=== PATIENT | male | born 1930 | race Caucasian/White ===

== ENCOUNTER 2016-08-23 04:14 | Emergency (ER) | payer OTHER, BC, MEDICARE ==
[~2016-08-23] VITALS: Ht 177.8 cm; Wt 72.6 kg
[~2016-08-23 04:14] MED LIST: CLOPIDOGREL75 MG PO; DRISDOL50000 IU PO; FERROUS SULFAT325 M1 PO; FUROSEMIDE20 MG PO; HYDROCORTI2.5 %/30 G TOP; LEVOTHYROXINE0.05 M1 PO; LISINOPRIL10 MG PO; MASON NATURAL325 MG PO; MELOXICAM7.5 MG PO; PRILOSEC 20MG C20 MG PO; ROZEREM8 MG PO; TRAMADOL HYDROC50 MG PO; VITAMIN B121000 MCG PO; XARELTO15 MG PO
--- NOTE | 2016-08-23 04:42 | ED MVC/FALL/TRAUMA COMPLAINT ---
History of Present Illness General Chief Complaint: Fall Stated Complaint: LEFT ELBOW AND WRIST PAIN S/P FALL Source: patient, family Exam Limitations: no limitations Vital Signs & Intake/Output Vital Signs & Intake/Output Vital Signs Date Time Temp Pulse Resp B/P B/P Pulse O2 O2 Flow FiO2 Mean Ox Delivery Rate 08/23 0420 97.4 83 20 154/76 94 Room Air Allergies Coded Allergies: NO KNOWN ALLERGIES (05/25/12) Reconcile Medications Cyanocobalamin (Vitamin B12) 1,000 MCG TAB 1 TAB PO DAILY DAILY ERGOCALCIFEROL (VITAMIN D2) (Drisdol) 50,000 IU SGL 50,000 IU PO Q168 SUPPLEMENT Ferrous Sulfate 325 MG TAB 1 TAB PO TID SUPPLEMENT Furosemide 20 MG TABLET 1 TAB PO DAILY WATER PILL (Reported) Hydrocortisone 2.5 %/30 GM CRM 1 FREDDIE TOP APPLY TO SKIN SKIN Levothyroxine Sodium 50 MCG TABLET 1 TAB PO DAILY AC THYROID (Reported) Lisinopril 10 MG TABLET 1 TAB PO DAILY BP (Reported) Omeprazole (Prilosec) 20 MG CAP 40 MG PO DAILY AC GI BLEED Oxycodone HCl/Acetaminophen (Percocet 5-325 MG Tablet) 5 MG-325 MG TABLET 1 TAB PO BID PRN PAIN eight...[id number] Ramelteon (Rozerem) 8 MG TAB 1 TAB PO AT BEDTIME SLEEP Rivaroxaban (Xarelto) 15 MG TABLET 1 TAB PO DAILY BLOOD THINNER (Reported) GI BLEED TRAMADOL HCL (Tramadol Hydrochloride) 50 MG TABLET 1 TAB PO Q6P PRN PAIN ( Reported) Triage Note: PT TO ED C/O LEFT WRIST/FOREARM PAIN AND LEFT ELBOW SKIN TEAR 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 PT DENIES HEADSTRIKE, DENIES LOC. TAKES XERALTO HAS SWELLING TO LEFT HAND/FOREARM Triage Nurses Notes Reviewed? yes Onset: Abrupt Duration: hour(s): Timing: single episode today Severity: moderate Injuries/Fall Location: upper extremity Method of Injury: fall Loss of Consciousness: no loss of consciousness Modifying Factors: Worsens With: movement. Associated Symptoms: left elbow skin tear, left wrist/hand pain HPI: An 86 yo gentleman in prior good health presents after a fall. Per his son, he tripped in the middle the night on the way to the bathroom. He landed on his left forearm. He notes a skin tear and pain in his left elbow as well as increased swelling, pain, decreased range of motion of his left wrist and hand. He did not hit his head. He has no headache. He had no syncopal symptoms or dizziness. He is otherwise well and has no other concerns. Past History Travel History Traveled to [place] past 21 day No Medical History Any Pertinent Medical History? see below for history Cardiovascular: hypertension, hyperlipidemia, myocardial infarction History of MRSA: No History of VRE: No History of CDIFF: No Pneumonia Vaccine: 02/07/09 Influenza Vaccine: 01/23/14 Surgical History Surgical History: none Psychosocial History Who do you live with Spouse Services at Home NONE What is your primary language Yemeni Tobacco Use: Quit >30 days ago Family History Family History, If Any: No Known Family History. Hx Contributory? No Review of Systems Review of Systems Constitutional: Reports: no symptoms. Eyes: Reports: no symptoms. Ears, Nose, Throat, Mouth: Reports: no symptoms. Respiratory: Reports: no symptoms. Cardiovascular: Reports: no symptoms. Gastrointestinal/Abdominal: Reports: no symptoms. Genitourinary: Reports: no symptoms. Musculoskeletal: Reports: no symptoms. Skin: Reports: no symptoms. Neurological/Psychological: Reports: no symptoms. All Other Systems: Reviewed and Negative Physical Exam Physical Exam General Appearance: well developed/nourished, mild distress Head: atraumatic, normal appearance Eyes: Bilateral: normal appearance. Ears, Nose, Throat, Mouth: hearing grossly normal Neck: normal inspection, supple, full range of motion, normal alignment Respiratory: normal breath sounds, chest non-tender, no respiratory distress, quiet respiration, lungs clear Cardiovascular: regular rate/rhythm Gastrointestinal: normal bowel sounds, soft, non-tender, no organomegaly Back: normal inspection, normal range of motion Extremities: left elbow with 3x4cm skin tear, diffuse swelling at olecranon without focal bony tenderness., left hand and wrist with diffuse swelling and tenderness to palpation. decreased ROM. Core Measures ACS in differential dx? No Severe Sepsis Present: No Septic Shock Present: No Progress Differential Diagnosis: ext injury Plan of Care: Orders Procedure Date/time Status XRY-WRIST COMPLETE-LEFT 08/23 441 Active XRY-HAND, 3 View LEFT 08/23 441 Active XRY-ELBOW 3 OR MORE VIEWS, L 08/23 441 Active Diagnostic Imaging: Viewed by Me: Radiology Read. Discussed w/RAD: Radiology Read. Radiology Impression: left wrist/left hand - 3rd, 4th, 5th, metacarpal fx, 2nd finger fx left elbow - no fx. Comments: PATIENT: XENA FLORES PRESENT AGE: 86 PATIENT ACCOUNT NO: [id number] : 30 LOCATION: [facility] ORDERING PHYSICIAN: DALE ARCHER MD SERVICE DATE: 08/23/16 EXAM TYPE: RAD - XRY-ELBOW 3 OR MORE VIEWS, L; XRY-HAND, LEFT; XRY-WRIST COMPLETE-LEFT EXAMINATION: XR LEFT ELBOW, LEFT WRIST, LEFT HAND CLINICAL INFORMATION: Pain after fall COMPARISON: None TECHNIQUE: 3 views of the left elbow. 3 views of the left wrist. 3 views of the left hand. FINDINGS: Left elbow: Osseous alignment is anatomic. No acute fracture is seen. Olecranon spurring is noted. No significant effusion. Dorsal soft tissue swelling is suspected. Left wrist: Alignment across the radiocarpal articulation and carpocarpal articulations is maintained. The distal radius and ulna appear intact. No carpal fracture is seen. Left hand: There are mildly displaced fractures of the third, fourth, and fifth metacarpal shafts. There is a minimally displaced oblique fracture of the second proximal phalanx which appears to demonstrate intra-articular extension at the PIP joint. There is soft tissue swelling overlying the metacarpals. IMPRESSION: 1. Left hand: Fractures of the third, fourth, and fifth metacarpals. Fracture of the second proximal phalanx. 2. Left wrist: No acute findings. 3. Left elbow: No acute findings. DICTATED BY: ROXY MARTINEZ MD DATE/TIME DICTATED:08/23/16537 BILLING COORDINATOR:FRANCES DATE/TIME TRANSCRIBED:08/23/16537 CONFIDENTIAL, DO NOT COPY WITHOUT APPROPRIATE AUTHORIZATION. <Electronically signed in Other Vendor System> SIGNED BY: ROXY MARTINEZ MD 08/23/16547 Departure Departure Disposition: HOME OR SELF CARE Condition: Stable Clinical Impression Primary Impression: Skin avulsion Secondary Impressions: Finger fracture, left, Fracture, metacarpal Referrals: SABA RECIO,SHANTELLE Curiel (PCP/Family) Departure Forms: Customer Survey General Discharge Information Prescriptions: Current Visit Scripts Oxycodone HCl/Acetaminophen (Percocet 5-325 MG Tablet) 1 TAB PO BID PRN PAIN #8 TAB eight...[id number] Procedures Splinting Location: left wrist Manual Alignment Performed: No Hand-Made Type: orthoglass Splint: wrist, mcp splint Splint Applied By: splint applied by me Pre-Proc Neuro Vasc Exam: normal Post-Proc Neuro Vasc Exam: normal Progress: excellent result... pt to follow up with ortho.
--- NOTE | 2016-08-23 05:48 | RADIOLOGY REPORT ---
EXAMINATION: XR LEFT ELBOW, LEFT WRIST, LEFT HAND CLINICAL INFORMATION: Pain after fall COMPARISON: None TECHNIQUE: 3 views of the left elbow. 3 views of the left wrist. 3 views of the left hand. FINDINGS: Left elbow: Osseous alignment is anatomic. No acute fracture is seen. Olecranon spurring is noted. No significant effusion. Dorsal soft tissue swelling is suspected. Left wrist: Alignment across the radiocarpal articulation and carpocarpal articulations is maintained. The distal radius and ulna appear intact. No carpal fracture is seen. Left hand: There are mildly displaced fractures of the third, fourth, and fifth metacarpal shafts. There is a minimally displaced oblique fracture of the second proximal phalanx which appears to demonstrate intra-articular extension at the PIP joint. There is soft tissue swelling overlying the metacarpals. IMPRESSION: 1. Left hand: Fractures of the third, fourth, and fifth metacarpals. Fracture of the second proximal phalanx. 2. Left wrist: No acute findings. 3. Left elbow: No acute findings.
[2016-08-23] MEDS ORDERED: PERCOCET 5-3251 EACH PO (06:01)
[2016-08-23 07:07] VITALS: BP 134/60
== END 2016-08-23 07:11 ==
LOC: ERH 04:14
DX: S62.611A Displaced fracture of proximal phalanx of left index finger, initial encounter for closed fracture (principal); S62.303A Unspecified fracture of third metacarpal bone, left hand, initial encounter for closed fracture; S62.305A Unspecified fracture of fourth metacarpal bone, left hand, initial encounter for closed fracture; S62.307A Unspecified fracture of fifth metacarpal bone, left hand, initial encounter for closed fracture; S51.012A Laceration without foreign body of left elbow, initial encounter; W19.XXXA Unspecified fall, initial encounter; Y92.9 Unspecified place or not applicable
CPT/HCPCS: 73080-LT; 73110-LT; 73130-LT

== ENCOUNTER 2016-08-28 16:32 | Inpatient (IN) | payer OTHER, BC, MEDICARE ==
[~2016-08-28] VITALS: Ht 177.8 cm; Wt 81.3 kg
[~2016-08-28 16:32] MED LIST changes: +PERCOCET 5-3251 EACH PO
--- NOTE | 2016-08-28 17:21 | ED DYSPNEA/ASTHMA COMPLAINT ---
History of Present Illness General Chief Complaint: Chest Pain Stated Complaint: CP, DIFF BREATHING Source: patient, family, old records Exam Limitations: clinical condition Vital Signs & Intake/Output Vital Signs & Intake/Output Vital Signs Date Time Temp Pulse Resp B/P B/P Pulse O2 O2 Flow FiO2 Mean Ox Delivery Rate 08/28 1835 100.4 84 22 168/73 100 BIPAP 25% 08/28 1737 100 BIPAP 40% 08/28 1735 100.4 82 22 165/79 97 BIPAP 40% 08/28 1710 99.5 88 22 182/81 100 BIPAP 40% / 1650 87 98 Allergies Coded Allergies: No Known Allergies (08/28/16) Reconcile Medications Cholecalciferol (Vitamin D3) (Unknown Strength) TABLET (Unknown Dose) PO DAILY SUPPLEMENT (Reported) Ferrous Sulfate (Unknown Strength) TABLET (Unknown Dose) PO TID SUPPLEMENT ( Reported) Finasteride 5 MG TABLET 1 TAB PO DAILY UNKNOWN (Reported) Furosemide 20 MG TABLET 1 TAB PO DAILY DIURETIC (Reported) Gabapentin 100 MG CAPSULE 1 CAP PO TID UNKNOWN (Reported) Levothyroxine Sodium 50 MCG TABLET 1 TAB PO DAILY THYROID (Reported) Rivaroxaban (Xarelto) 15 MG TABLET 1 TAB PO DAILY BLOOD THINNER (Reported) Tamsulosin HCl 0.4 MG CAP.ER.24H 1 CAP PO BID (Reported) Core Measure Meds Pre-Hospital xarelto Triage Nurses Notes Reviewed? yes Onset: Just prior to arrival Duration: minute(s):, constant, continues in ED, getting worse Timing: recent history Severity: severe Activities at Onset: none Prior Episodes/Possible Cause: occasional episodes Modifying Factors: Worsens With: movement. Associated Symptoms: weakness HPI: One hour prior to admission patient complained of acute onset of shortness of breath weakness dyspnea on exertion. There is no report of fever chills chest pain cough headache dysuria rash nausea vomiting diarrhea bleeding. Past History Travel History Traveled to [place] past 21 day No Medical History Any Pertinent Medical History? see below for history Cardiovascular: hypertension, hyperlipidemia, myocardial infarction History of MRSA: No History of VRE: No History of CDIFF: No Surgical History Surgical History: pacemaker Psychosocial History Who do you live with Spouse Services at Home NONE What is your primary language Kyrgyz Family History Family History, If Any: No Known Family History. Hx Contributory? No Review of Systems Review of Systems Constitutional: Reports: see HPI, weakness. EENTM: Reports: no symptoms. Respiratory: Reports: see HPI, short of breath. Cardiovascular: Reports: no symptoms. GI: Reports: no symptoms. Genitourinary: Reports: no symptoms. Musculoskeletal: Reports: no symptoms. Skin: Reports: no symptoms. Neurological/Psychological: Reports: no symptoms. Hematologic/Endocrine: Reports: no symptoms. Immunologic/Allergic: Reports: no symptoms. All Other Systems: Reviewed and Negative Physical Exam Physical Exam General Appearance: well developed/nourished, alert, awake, anxious, severe distress Head: atraumatic, normal appearance Eyes: Bilateral: normal appearance, PERRL, EOMI. Ears, Nose, Throat: normal pharynx, normal ENT inspection, hearing grossly normal Neck: normal inspection, supple, full range of motion, JVD Respiratory: chest non-tender, decreased breath sounds, respiratory distress ( severe) Cardiovascular: normal peripheral pulses, irregularly irregular, norml femoral pulses equa Peripheral Pulses: 4+ carotid (R), 4+ carotid (L) Gastrointestinal: normal bowel sounds, soft, non-tender, no organomegaly Extremities: normal capillary refill, normal range of motion, pedal edema, no ligament instability Neurologic/Psych: no motor/sensory deficits, awake, alert, normal mood/affect, case coordinator II-XII nml as tested Skin: intact, normal color, warm/dry Lymphatic: no anterior cervical kylah Core Measures ACS in differential dx? Yes ASA ordered for poss ACS? No-other contraindication (on xarelto) Severe Sepsis Present: No Septic Shock Present: No Progress Differential Diagnosis: AMI, CHF, COPD, pulmonary embolism, pneumonia Plan of Care: Orders Procedure Date/time Status Regular Diet 08/29 B Active Patient Data 08/28 1836 Active OXYGEN SETUP (GEN) 08/28 1816 Active Saline Lock 08/28 181 Active Admit to inpatient 08/28 181 Active Vital Signs 08/28 181 Active Activity/Ambulation 08/28 181 Active BLOOD CULTURE 08/28 181 Active Code Status 08/28 1817 Active Intake & Output 08/28 1721 Active URINALYSIS 08/28 1705 Complete ARTERIAL BLOOD GAS (GEN) 08/28 1650 Active TROPONIN LEVEL 08/28 1647 Complete PROTHROMBIN TIME 08/28 1647 Complete MAGNESIUM 08/28 1647 Complete COMPREHENSIVE METABOLIC PANEL 08/28 1647 Complete CBC WITHOUT DIFFERENTIAL 08/28 1646 Complete B-TYPE NATRIURETIC PEP (BNP) 08/28 164 Complete EKG 08/28 1635 Active Current Medications Sig/Edvin Start time Last Medication Dose Stop Time Status Admin Doxycycline Hyclate 100 MG ONCE ONE 08/28 1829 AC (Vibramycin) 08/28 1934 Sodium Chloride 100 ML (Normal Saline 0.9%) Laboratory Tests 08/28/16 1735: pH 7.46 H, pCO2 31 L, pO2 178 H, HCO3 22, ABG O2 Sat (Measured) 98.0, P-50 ( Temp Corrected) N, Carboxyhemoglobin 0.8 L, O2 Concentration % 40%, Temperature 99.5, Respiration Rate 22, O2 Delivery Method FFM, Vent Mode ST, Expiratory Pressure 6, Inspiratory Pressure 16, Phlebotomy Draw Site RIGHT RADIAL 08/28/16 1715: Anion Gap 15, Estimated GFR 48 L, BUN/Creatinine Ratio 15.0, Glucose 113 H, Calcium 8.5, Magnesium 2.1, Total Bilirubin 0.9, AST 23, ALT 34, Alkaline Phosphatase 188 H, Troponin I 0.04, Sau-A-Qwffzbyoyxp Pept 3710 H, Total Protein 7.0, Albumin 3.6, Globulin 3.4, Albumin/Globulin Ratio 1.1, PT 12.9 H, INR 1.23 H, CBC w Diff NO MAN DIFF REQ, RBC 2.91 L, MCV 95.0 H, MCH 30.4, RDW 15.9 H, MPV 8.1, Gran % 79.0 H, Lymphocytes % 9.8 L, Monocytes % 8.3, Eosinophils % 2.5, Basophils % 0.4, Absolute Granulocytes 8.0 H, Absolute Lymphocytes 1.0 L, Absolute Monocytes 0.8 H, Absolute Eosinophils 0.3, Absolute Basophils 0, PUBS MCHC 32.0 L 08/28/16 1705: Urine Color YEL, Urine Clarity HAZY H, Urine pH 6.0, Ur Specific [place] 1.020, Urine Protein TRACE H, Urine Ketones NEG, Urine Nitrite POS H, Urine Bilirubin NEG, Urine Urobilinogen 0.2, Ur Leukocyte Esterase SMALL H, Ur Microscopic SEDIMENT EXAMINED, Urine RBC 5-10 H, Urine WBC 3-5 H, Ur Epithelial Cells RARE , Urine Bacteria PACKD H, Urine Hemoglobin MOD H, Urine Glucose NEG Microbiology 08/28 1829 BLOOD: Blood Culture - RECD 08/28 1829 BLOOD: Blood Culture - RECD Diagnostic Imaging: Viewed by Me: Radiology Read. Discussed w/RAD: Radiology Read. CXR Impression: 1. Mild pulmonary venous congestion without overt pulmonary edema. 2. Right infrahilar airspace disease, in the correct clinical setting can represent pneumonia. Clinical correlation is suggested. Initial ED EKG: AFIB, nonspecific ST T wave chg Prior EKG: unchanged Rhythm Strip: atrial fibrillation Departure Departure Disposition: STILL A PATIENT Condition: Stable Clinical Impression Primary Impression: CHF (congestive heart failure) Qualifiers: Congestive heart failure type: unspecified congestive heart failure type Congestive heart failure chronicity: acute Qualified Code: I50.9 - Heart failure, unspecified Secondary Impressions: Atrial fibrillation with normal ventricular rate Pneumonia Qualifiers: Pneumonia type: due to unspecified organism Laterality: right Lung location: middle lobe of lung Qualified Code: J18.1 - Lobar pneumonia, unspecified organism Referrals: SHANTELLE WALTER MD (PCP/Family) Departure Forms: Customer Survey General Discharge Information Admission Note Spoke With: TITO REY MD Documentation of Exam: Documentation of any treatments & extenuating circumstances including Concerns Regarding Discharge (functional status, medication knowledge or non-compliance, living conditions, etc.) that warrant an admission rather than observation: Cardiac monitoring supplemental oxygen serial lab exam medication adjustment IV antibiotics continuing care discharge planning. Critical Care Note Critical Care Note Critical Care Time: 30-74 min (40)
[2016-08-28] MEDS ORDERED: LEVOTHYROXINE50 MCG PO (17:25)
[2016-08-28] MEDS ORDERED: FUROSEMIDE20 M1 PO (17:26)
[2016-08-28] MEDS ORDERED: GABAPENTIN100 M2 PO (17:26)
[2016-08-28] MEDS ORDERED: VITAMIN D31000 UNI2 PO (17:26)
[2016-08-28] MEDS ORDERED: FINASTERIDE5 M1 PO (17:27)
[2016-08-28] MEDS ORDERED: FERROUS SULFAT325 M3 PO (17:27)
[2016-08-28] MEDS ORDERED: XARELTO15 M2 PO (17:27)
[2016-08-28] MEDS ORDERED: TAMSULOSIN HCL0.4 M1 PO (17:27)
[2016-08-28 17:35] LABS: PT 12.9 SEC (9.4-12.5)
[2016-08-28 17:36] LABS: ABSOLUTE BASOPHIL COUNT 0 /CUMM (0.0-0.2); ABSOLUTE EOSINOPHIL COUNT 0.3 /CUMM (0.0-0.7); ABSOLUTE MONOCYTE COUNT 0.8 /CUMM (0.10-0.60); BASOPHIL % 0.4 % (0.0-2.0); EOSINOPHIL % 2.5 % (0-5); HEMATOCRIT 27.6 % (42-52); MEAN CORPUSCULAR HGB 30.4 PG (27.0-31.0); MEAN PLATELET VOLUME 8.1 FL (7.4-10.4); PLATELET COUNT 244 /CUMM (130-400); RBC DISTRIBUTION WIDTH 15.9 % (11.5-14.5); RED BLOOD CELL CT 2.91 /CUMM (4.70-6.10); WHITE BLOOD CELL COUNT 10.1 /CUMM (4.8-10.8)
--- NOTE | 2016-08-28 18:10 | RADIOLOGY REPORT ---
EXAMINATION: XR PORTABLE CHEST CLINICAL INFORMATION: Shortness of breath COMPARISON: 03/14/2014 chest x-ray TECHNIQUE: Portable frontal view of the chest was obtained. FINDINGS: Stable mild cardiomegaly. The mediastinal silhouette is normal. Atherosclerotic calcifications of aortic arch noted. Left subclavian approach single lead cardiac pacer in place with its lead projecting over the right ventricle. There is mild pulmonary venous congestion. No overt pulmonary edema seen. There is right infrahilar pulmonary airspace disease. The left lung is clear. No pleural effusions or pneumothorax. IMPRESSION: 1. Mild pulmonary venous congestion without overt pulmonary edema. 2. Right infrahilar airspace disease, in the correct clinical setting can represent pneumonia. Clinical correlation is suggested.
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
[2016-08-28 22:25] VITALS: BP 122/64
--- NOTE | 2016-08-29 00:26 | Admission Certification ---
Admission Certification Certification Statement - As attending physician, I certify that at the time of - admission, based on clinical presentation, severity of - symptoms, need for further diagnostic testing and - therapeutic interventions, and risk of adverse outcomes - without in-hospital treatment, in my clinical assessment, - this patient requires an acute hospital stay for a minimum - of two nights or longer. I have also considered psychsocial - factors such as support system, advanced age, financial - issues, cognitive issues, and failed out-patient treatments, - past re-admission history, safety of patient, and lack of - compliance as applicable. Specific rationale supporting this admission is: Acute hypoxic respiratory failure, multifactorial secondary to pneumonia, heart failure rule out PE
[2016-08-29 00:53] VITALS: BP 130/70
[2016-08-29 07:59] VITALS: BP 110/80
--- NOTE | 2016-08-29 08:28 | PN- Housestaff ---
BOWEN RECIO,[facility] 08/29/16 0828: Subjective Follow-up For: #Acute hypoxic respiratory failure #Acute CHF exacerbation #HCAP #SOB needs to R/O PE #Hx. of A.flavio on Xarelto Subjective: Patient lying in bed. States that his breathing is the same as admission. Does not complain of pain or discomfort this AM. Review of Systems Constitutional: Reports: see HPI. Objective Last 24 Hrs of Vital Signs/I&O Vital Signs Date Time Temp Pulse Resp B/P B/P Pulse O2 O2 Flow FiO2 Mean Ox Delivery Rate 08/29 758 97.9 73 14 110/80 98 Nasal 2.0L Cannula 08/29 0053 98.4 79 20 130/70 99 Nasal 2.0L Cannula 08/29 0000 Nasal 2.0L Cannula 08/28 2225 98.3 80 20 122/64 100 Nasal 2.0L Cannula 08/28 2002 99.9 77 24 144/83 100 Nasal 3.0L Cannula 08/28 1835 100.4 84 22 168/73 100 BIPAP 25% 08/28 1737 100 BIPAP 40% 08/28 1735 100.4 82 22 165/79 97 BIPAP 40% 08/28 1710 99.5 88 22 182/81 100 BIPAP 40% / 1650 87 98 Intake & Output 08/29 1600 08/29 0800 08/29 0000 Intake Total 396 0 Output Total 800 2500 Balance -404 -2500 Intake, IV 156 Intake, Oral 240 0 Number 1 Bowel Movements Output, Urine 800 2500 Patient 179 lb 165 lb Weight Weight Standing Scale Reported by Patient Measurement Method Physical Exam General Appearance: Alert, Oriented X3, Cooperative, No Acute Distress Cardiovascular: Regular Rate, Normal S1, Normal S2, murmur heard in the aortic area. Lungs: decreased air entry bilaterally. Abdomen: Normal Bowel Sounds, Soft, No Tenderness Neurological: Normal Speech, Strength at 5/5 X4 Ext, Normal Tone Extremities: 1+ pitting edema noted in both LE extending upto the knees Current Medications: Current Medications Sig/Edvin Start time Last Medication Dose Route Stop Time Status Admin Acetaminophen 650 MG Q6P PRN 08/28 2300 AC PO Ceftazidime 1,000 MG Q12H 08/29 0000 AC 08/29 IV 0030 Ceftriaxone Sodium 0 .STK-MED ONE 08/28 1835 DC .ROUTE Ceftriaxone Sodium 1,000 MG ONCE ONE 08/28 1830 DC 08/28 IV 08/28 183 1853 Cholecalciferol 1,000 IU DAILY 08/29 1000 AC PO Doxycycline Hyclate 100 MG ONCE ONE 08/28 183 DC 08/28 Sodium Chloride 100 ML IV 08/28 193 1938 Ferrous Sulfate 325 MG DAILY 08/29 1000 AC PO Finasteride 5 MG DAILY 08/29 1000 AC PO Furosemide 40 MG 7:30 AM, & 4:30 PM 08/29 0730 AC IV Furosemide 80 MG ONCE ONE 08/28 1700 DC 05/ IV 08/28 1701 1700 Furosemide 0 .STK-MED ONE 08/28 1645 DC IV Gabapentin 100 MG TID 08/29 1000 AC PO Heparin Sodium 25,000 UNIT Q24H 08/28 2300 AC 08/29 (Porcine) IV 0145 Sodium Chloride 500 ML Levothyroxine Sodium 0.05 MG DAILY AC 08/29 0700 AC 08/29 PO 0603 Morphine Sulfate 4 MG Q12P PRN 08/28 2300 AC IV Morphine Sulfate 0 .STK-MED ONE 08/28 1752 DC .ROUTE Morphine Sulfate 2 MG ONCE ONE 08/28 1745 DC 08/28 IV 08/28 1746 1754 Oxycodone/ 1 TAB Q6P PRN 08/28 2300 AC Acetaminophen PO Tamsulosin HCl 0.4 MG BID 08/29 1000 AC PO Vancomycin HCl 1,000 MG DAILY 08/29 1000 AC Sodium Chloride 250 ML IV Last 24 Hrs of Lab/Saud Results Last 24 Hrs of Labs/Mics: Laboratory Tests 08/29/16 0811: Sodium Pending, Potassium Pending, Chloride Pending, Carbon Dioxide Pending, Anion Gap Pending, BUN Pending, Creatinine Pending, BUN/Creatinine Ratio Pending , APTT Pending, CBC w Diff Pending, WBC Pending, RBC Pending, Hgb Pending, Hct Pending, MCV Pending, MCH Pending, RDW Pending, Plt Count Pending, MPV Pending, PUBS MCHC Pending 08/29/16 0120: Troponin I 0.06 08/28/16 1735: pH 7.46 H, pCO2 31 L, pO2 178 H, HCO3 22, ABG O2 Sat (Measured) 98.0, P-50 ( Temp Corrected) N, Carboxyhemoglobin 0.8 L, O2 Concentration % 40%, Temperature 99.5, Respiration Rate 22, O2 Delivery Method FFM, Vent Mode ST, Expiratory Pressure 6, Inspiratory Pressure 16, Phlebotomy Draw Site RIGHT RADIAL 08/28/16 1715: Anion Gap 15, Estimated GFR 48 L, BUN/Creatinine Ratio 15.0, Glucose 113 H, Calcium 8.5, Magnesium 2.1, Total Bilirubin 0.9, AST 23, ALT 34, Alkaline Phosphatase 188 H, Troponin I 0.04, Yxt-H-Gfaeynyblyf Pept 3710 H, Total Protein 7.0, Albumin 3.6, Globulin 3.4, Albumin/Globulin Ratio 1.1, PT 12.9 H, INR 1.23 H, CBC w Diff NO MAN DIFF REQ, RBC 2.91 L, MCV 95.0 H, MCH 30.4, RDW 15.9 H, MPV 8.1, Gran % 79.0 H, Lymphocytes % 9.8 L, Monocytes % 8.3, Eosinophils % 2.5, Basophils % 0.4, Absolute Granulocytes 8.0 H, Absolute Lymphocytes 1.0 L, Absolute Monocytes 0.8 H, Absolute Eosinophils 0.3, Absolute Basophils 0, PUBS MCHC 32.0 L 08/28/161704: Urine Color YEL, Urine Clarity HAZY H, Urine pH 6.0, Ur Specific Marshall 1.020, Urine Protein TRACE H, Urine Ketones NEG, Urine Nitrite POS H, Urine Bilirubin NEG, Urine Urobilinogen 0.2, Ur Leukocyte Esterase SMALL H, Ur Microscopic SEDIMENT EXAMINED, Urine RBC 5-10 H, Urine WBC 3-5 H, Ur Epithelial Cells RARE , Urine Bacteria PACKD H, Urine Hemoglobin MOD H, Urine Glucose NEG Microbiology 08/29 2247 LOWER RESP: Respiratory Culture - COLB 08/29 2247 LOWER RESP: Gram Stain - COLB 08/28 1829 BLOOD: Blood Culture - RECD 08/28 1829 BLOOD: Blood Culture - RECD 08/28 1704 URINE ROUT: Legionella Antigen - RES 08/28 1704 URINE ROUT: Streptococcus pneumoniae Antigen (M - RES 08/28 1704 URINE ROUT: Urine Culture - RES Lines/Diet/Fluids Lines: peripheral lines Assessment/Plan Assessment: is an 86 yo man with PMHx. significant for HTN, CAD, A.fib on Xarelto , Bradycardia s/p pacemaker placed at 03/19/2014, AAA s/p repair, Hx. of prostatic cancer presented to ED with a c/o of SOB. He is currently admitted to telemetry for acute hypoxic respiratory failure 2/2 exacerbation of CHF and HCAP. Doppler of the LE, ECHO pending. Plan: - Continue to monitor in telemetry. - ECHO pending, Doppler of the LE pending. Patient is non compliant with home Xarelto. - Continue Vanc and Ceftaz for HCAP. Blood cx, sputum cx do not show any growth yet. Respiratory status has remained stable overnight. - Continue Heparin gtt pending V/Q scan. - 3rd Trop pending. Tropsx2 negative. - Pain Pathway: Mild, moderate and severe. - DVT PPx: Heparin Gtt - Code Status: Full code. Problem List: 1. CHF (congestive heart failure) Pain Ratin Pain Location: No pain Pain Goal: Pain 4 or less Pain Plan: Per EMR Tomorrow's Labs & Rationales: Per today's Labs SASKIA RECIO,BINA 08/29/16 1505: Attending MD Review Statement Attending Statement Attending MD Statement: examined this patient, discuss w/resident/PA/MANAGER DOCUMENTATION, agreed w/resident/PA/MANAGER DOCUMENTATION, discussed with family, reviewed EMR data (avail), discussed with nursing, amended to note Attending Assessment/Plan: Patient seen and examined. Lying in bed not in acute distress. Overnight on telemetry has been atrial fibrillation with ventricular ectopy. He is alert and oriented to person. Follows simple commands. Denies pain. Denies chest pain or shortness of breath. Denies palpitations. On examination he has no jugular venous distention. Lungs are clear to auscultation bilaterally. Heart sounds are irregular. Abdomen is soft and nontender. He has bilateral pedal edema. He has a cast over the left wrist. Problems: 1. Dyspnea; secondary to volume overload, pneumonia evidence of chest x-ray. 2. Chronic atrial fibrillation on aticoagulation with xarelto 3. Chronic kidney disease. 4. Obstructive uropathy; daughter reports need for frequent catheterization as an outpatient. 5. Dementia Plan: -Continue diuresis with Lasix 40 mg IV daily. Obtain echocardiogram will follow -up with his sanitation associate Dr. Bingham. Troponin so far, suggestive of acute coronary syndrome. -Patient is not on any medications for rate control at home. He is on anticoagulation therapy with xarelto home. His daughter reports that he does not fall often. He did fall last week resulting the left wrist fracture. -Continue impression about therapy with vancomycin/ceftaz again. Follow blood cultures. Obtain sputum cultures if possible. If patient continues spikes fever recommend ID consultation -Keep Cortes catheter in place. Continue tamsulosin and finasteride. -Continue telemetry monitoring pending evaluation of his echocardiogram and consultation with cardiology service. -Patients home anticoagulation therapy was stopped and he was placed on IV heparin pending evaluation for pulmonary embolism with VQ scan. This appears less likely given vascular congestion noted on the chest x-ray as well as infiltrates and fever suggestive of pneumonia. Will continue this regimen pending the VQ scan.
[2016-08-29 09:33] LABS: ABSOLUTE BASOPHIL COUNT 0 /CUMM (0.0-0.2); ABSOLUTE EOSINOPHIL COUNT 0.1 /CUMM (0.0-0.7); ABSOLUTE GRANULOCYTE CT 6.8 /CUMM (1.4-6.5); BASOPHIL % 0.3 % (0.0-2.0); GRANULOCYTE % 76.6 % (42.2-75.2); MEAN PLATELET VOLUME 8.5 FL (7.4-10.4); PLATELET COUNT 189 /CUMM (130-400); RBC DISTRIBUTION WIDTH 16.1 % (11.5-14.5); WHITE BLOOD CELL COUNT 8.8 /CUMM (4.8-10.8)
[2016-08-29 09:40] LABS: PTT 72 SEC (25-37)
[2016-08-29 11:54] LABS: MEAN CORPUSCULAR VOLUME 98.9 FL (80.0-94.0)
[2016-08-29 11:55] LABS: HEMATOCRIT 25.4 % (42-52); MEAN CORPUSCULAR HGB 32.7 PG (27.0-31.0); RED BLOOD CELL CT 2.57 /CUMM (4.70-6.10)
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
--- NOTE | 2016-08-29 15:56 | ULTRASOUND REPORT ---
EXAMINATION: US TRIPLEX OF LOWER EXTREMITIES, BILATERAL CLINICAL INFORMATION: Shortness of breath. Left lower extremity swelling. COMPARISON: None TECHNIQUE: Color-flow triplex imaging with spectral analysis and compression Doppler were performed on the veins of the bilateral lower extremities. FINDINGS: Respiratory variation, normal compression and augmented flow are noted throughout the lower extremities. The visualized common femoral vein, superficial femoral vein, profunda femoral vein, popliteal vein and midcalf peroneal and posterior tibial venous segments show no evidence of deep venous thrombosis. There is no Rucker's cyst. IMPRESSION: Normal triplex scan without evidence of deep venous thrombosis involving the lower extremities.
[2016-08-29 15:58] VITALS: BP 100/60
[2016-08-29 20:54] LABS: PTT 40 SEC (25-37)
[2016-08-29 23:30] VITALS: BP 118/60
[2016-08-30 02:19] LABS: PTT 97 SEC (25-37)
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
[2016-08-30 08:03] VITALS: BP 108/60
[2016-08-30 10:03] LABS: ABSOLUTE BASOPHIL COUNT 0 /CUMM (0.0-0.2); ABSOLUTE EOSINOPHIL COUNT 0.1 /CUMM (0.0-0.7); ABSOLUTE GRANULOCYTE CT 4.8 /CUMM (1.4-6.5); ABSOLUTE LYMPH COUNT 0.9 /CUMM (1.2-3.4); ABSOLUTE MONOCYTE COUNT 0.8 /CUMM (0.10-0.60); BASOPHIL % 0.5 % (0.0-2.0); EOSINOPHIL % 2.1 % (0-5); GRANULOCYTE % 71.5 % (42.2-75.2); HEMATOCRIT 23.7 % (42-52); MEAN CORPUSCULAR HGB 30.9 PG (27.0-31.0); MEAN CORPUSCULAR HGB CONC 32.7 G/DL (33.0-37.0); MEAN CORPUSCULAR VOLUME 94.5 FL (80.0-94.0); MEAN PLATELET VOLUME 8.5 FL (7.4-10.4); PLATELET COUNT 147 /CUMM (130-400); RBC DISTRIBUTION WIDTH 15.9 % (11.5-14.5); WHITE BLOOD CELL COUNT 6.7 /CUMM (4.8-10.8)
[2016-08-30 10:09] LABS: PTT 47 SEC (25-37)
--- NOTE | 2016-08-30 10:10 | PN- Cardiology ---
Subjective Subjective: * Patient is confused and disoriented to place and time. * atrial fibrillation with controlled heart rate * shortness of breath is improved. Objective Vital Signs and I&Os Vital Signs Date Time Temp Pulse Resp B/P B/P Pulse O2 O2 Flow FiO2 Mean Ox Delivery Rate 08/30 802 97.9 78 20 108/60 94 Room Air 08/30 0000 93 Room Air 08/29 2330 99.0 85 18 118/60 93 Nasal 2.0L Cannula 08/29 2201 75 18 152/84 08/29 1600 95 Room Air 08/29 1558 97.8 69 16 100/60 100 Nasal 2.0L Cannula 08/29 1043 Nasal 2.0L Cannula 08/29 1035 73 110/80 Intake & Output 08/30 0808/30 0000 08/29 1600 08/29 0800 08/29 0000 Intake Total 620 396 0 Output Total 400 1400 348 634 1422 Balance -400 -1400 20 -404 -2500 Intake, IV 156 Intake, Oral 620 240 0 Number 1 1 Bowel Movements Output, Urine 400 1400 961 643 1975 Patient 182 lb 179 lb 165 lb Weight Weight Standing Scale Standing Scale Reported by Patient Measurement Method Physical Exam: General: WD/WN male in NAD; awake and responsive with confusion Neck: no JVD Heart: irregularly irregular Lungs: decreased air movement bilaterally without crackles or wheezing Extremities: no edema Assessment/Plan Assessment/Plan * Shortness of breath of unclear etiology with minimal fever and normal WBC count. Continue antibiotics for now and continue to diurese with Lasix at 40mg IV daily. Check a PA and Lateral chest X-ray. Obtain a D-dimer and ABG on room air. A V/Q scan is pending to evaluate for a a PE. The patient reportedly has not been taking his Xarelto faithfully. This medication should be continued. Continue telemetry? Yes
--- NOTE | 2016-08-30 13:08 | RADIOLOGY REPORT ---
EXAMINATION: XR CHEST CLINICAL INFORMATION: Follow-up right-sided pneumonia COMPARISON: Chest x-ray dated 08/28/2016 TECHNIQUE: 2 views of the chest were obtained. FINDINGS: Single-lead pacemaker device in place. Stable cardiomegaly. Vascular congestion noted again. Mild hazy prominence of the interstitial markings may represent mild interstitial edema. Small left pleural effusion with probable associated infiltrate or atelectasis. Trace right effusion. IMPRESSION: 1. Vascular congestion and crowding of the bronchovascular structures. Mild interstitial edema suspected. 2. Small left pleural effusion with associated left basilar infiltrate or atelectasis. Trace right effusion. No definite airspace disease noted in the right medial base.
--- NOTE | 2016-08-30 13:22 | NUCLEAR MEDICINE REPORT ---
EXAMINATION: PULMONARY VENTILATION PERFUSION STUDY CLINICAL INFORMATION: Respiratory failure, acute onset. COMPARISON: No previous lung scan is available for comparison. Radiographs of the chest dated 08/30/2016, the same date as this lung scan, are available for comparison. TECHNIQUE: Serial gamma scintillation camera images were obtained over the posterior chest during the single breath, equilibrium rebreathing and washout of 10 mCi Xe 133 gas. The patient then received 4.2 mCi Tc-99m MAA intravenously and a 6-view perfusion study was performed. FINDINGS: Ventilation images: On the single breath and equilibrium images there is homogeneous distribution of gas bilaterally. The cardiac silhouette appears dilated. During the washout phase there is no abnormal retention. Perfusion images: No segmental perfusion defects are present. There is homogeneous distribution of activity bilaterally. There are no focal anatomic appearing perfusion defects present. The cardiac silhouette appears dilated, but is well matched to the appearance on the ventilation images. IMPRESSION: Very low probability of pulmonary embolism.
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
[2016-08-30 15:30] VITALS: BP 128/80
--- NOTE | 2016-08-30 16:03 | Patient Discharge Instructions ---
Discharge Instructions General Discharge Information You were seen/treated for: Acute respiratory failure/CHF exacerbation Special Instructions: -Please follow-up with your primary care provider and bench examiner Dr. Bingham within 7 days after discharge. -We have made changes to your home medications, please read the instructions carefully. -Please come back to the hospital if your symptoms got worse. Diet Recommended Diet: Heart Healthy Activity Full Activity/No Limits: Yes (as tolerated) Acute Coronary Syndrome Inclusion Criteria At DC or during hospital stay patient has or had the following: ACS DIAGNOSIS No Discharge Core Measures Meds if any: Prescribed or Continued at Discharge Meds if any: NOT Prescribed or Continued at Discharge Congestive Heart Failure Inclusion Criteria At DC or during hospital stay patient has or had the following: CHF DIAGNOSIS Yes Discharge Core Measures Meds if any: Prescribed or Continued at Discharge Meds if any: NOT Prescribed or Continued at Discharge Cerebrovascular accident Inclusion Criteria At DC or during hospital stay patient has or had the following: CVA/TIA Diagnosis No Discharge Core Measures Meds if any: Prescribed or Continued at Discharge Meds if any: NOT Prescribed or Continued at Discharge Venous thromboembolism Inclusion Criteria VTE Diagnosis No VTE Type NONE VTE Confirmed by (Test) NONE Discharge Core Measures - Per Current guidelines, there needs to be overlap - treatment for the first 5 days of Warfarin therapy. - If discharged on Warfarin prior to 5 days of - overlap therapy, the patient will need to be - assessed for post discharge needs including - *Post discharge parental anticoagulation - *Warfarin and/or parental anticoagulation education - *Follow up date to check INR post discharge At least 5 days overlap therapy as Inpatient No Meds if any: Prescribed or Continued at Discharge Note: Overlap Therapy is Warfarin and Anticoagulant Meds if any: NOT Prescribed or Continued at Discharge
[2016-08-30 18:07] LABS: PTT 46 SEC (25-37)
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
[2016-08-31 08:23] VITALS: BP 132/70
[2016-08-31 08:28] LABS: ABSOLUTE BASOPHIL COUNT 0 /CUMM (0.0-0.2); ABSOLUTE EOSINOPHIL COUNT 0.2 /CUMM (0.0-0.7); ABSOLUTE GRANULOCYTE CT 4.3 /CUMM (1.4-6.5); ABSOLUTE MONOCYTE COUNT 0.7 /CUMM (0.10-0.60); BASOPHIL % 0.5 % (0.0-2.0)
[2016-08-31 08:49] LABS: ABSOLUTE LYMPH COUNT 0.7 /CUMM (1.2-3.4); EOSINOPHIL % 3.4 % (0-5); GRANULOCYTE % 72.3 % (42.2-75.2); HEMATOCRIT 22.2 % (42-52); MEAN CORPUSCULAR HGB 31.4 PG (27.0-31.0); MEAN CORPUSCULAR HGB CONC 32.7 G/DL (33.0-37.0); MEAN CORPUSCULAR VOLUME 95.8 FL (80.0-94.0); MEAN PLATELET VOLUME 8.4 FL (7.4-10.4); PLATELET COUNT 163 /CUMM (130-400); RBC DISTRIBUTION WIDTH 15.5 % (11.5-14.5); RED BLOOD CELL CT 2.32 /CUMM (4.70-6.10); WHITE BLOOD CELL COUNT 5.9 /CUMM (4.8-10.8)
--- NOTE | 2016-08-31 14:15 | ECHOCARDIOGRAM REPORT ---
XENA FLORES Age: 86 : 1930 Gender: M Exam Date: 08/30/2016 16:32 Exam Location: [address] Ht (in): 70 Wt (lb): 182 BSA: 2.03 BP: 112 / 80 Ordering Physician: JOSÉ ANTONIO CAPUTO MD Referring Physician: Toni Bingham MD, PhD Technologist: [facility] Room Number: 189-02 Indications: SHORTNESS OF BREATH Rhythm: paced Technical Quality: fair FINDINGS Left Ventricle Normal left ventricular size, wall thickness and systolic function with no obvious regional wall motion abnormalities. The ejection fraction is visually estimated at 60%. Right Ventricle The right ventricle is normal in size and function. Pacemaker lead noted. Right Atrium The right atrium is normal in size. Left Atrium The left atrium is moderately dilated. The interatrial septum is intact. Mitral Valve The mitral valve is normal in structure and function. There is mild mitral regurgitation. Aortic Valve Structurally normal aortic valve without significant sclerosis or stenosis. There is trace aortic regurgitation. Tricuspid Valve The tricuspid valve is normal in structure and function. There is mild to moderate tricuspid regurgitation. Pulmonary artery systolic pressure is moderately elevated to 48mmHg. Pulmonic Valve Structurally normal pulmonic valve. There is trace pulmonic regurgitation. Pericardium Normal pericardium with trace effusion. Large pleural effusion. Great Vessels Normal aortic root dimension. The aortic arch and great vessels are well seen and are normal. CONCLUSIONS 1. Normal EF of 60%. 2. Moderate left atrial enlargement. 3. Mild mitral regurgitation. 4. Mild to moderate tricuspid regurgitation. 5. Trace aortic regurgitation. 6. Trace pulmonic regurgitation. 7. Moderate pulmonary hypertension. 8. Pacemaker lead noted in right cardiac chambers. 9. Large pleural effusion. Toni Bingham M.D. (Electronically Signed) Final Date: 31 Aug 2016 14:14 MEASUREMENTS (Male / Female) Normal Values 2D ECHO LV Diastolic Diameter PLAX 4.4 cm 4.2 - 5.9 / 3.9 - 5.3 cm LV Systolic Diameter PLAX 2.9 cm 2.1 - 4.0 cm LV Fractional Shortening PLAX 34.1 % 25 - 46 % LV Ejection Fraction 2D Teich 63.3 % IVS Diastolic Thickness 1.0 cm LVPW Diastolic Thickness 1.1 cm LV Relative Wall Thickness 0.5 LVOT Diameter 1.9 cm Aortic Root Diameter 2.8 cm LA Systolic Diameter LX 4.8 cm 3.0 - 4.0 / 2.7 - 3.8 cm LA Volume 49.0 cm 18 - 58 / 22 - 52 cm Ascending Aorta Diameter 2.5 cm DOPPLER AV Peak Velocity 105.0 cm/s AV Peak Gradient 4.4 mmHg AV Mean Velocity 75.7 cm/s AV Mean Gradient 3.0 mmHg AV Velocity Time Integral 21.6 cm LVOT Peak Velocity 63.9 cm/s LVOT Peak Gradient 1.6 mmHg LVOT Mean Velocity 43.9 cm/s LVOT Mean Gradient 1.0 mmHg LVOT Velocity Time Integral 12.2 cm LVOT Stroke Volume 34.6 cm AV Area Cont Eq vti 1.6 cm AV Area Cont Eq pk 1.7 cm MV Peak Velocity 122.0 cm/s MV Peak Gradient 6.0 mmHg MV Mean Velocity 50.9 cm/s MV Mean Gradient 1.0 mmHg Mitral E Point Velocity 116.0 cm/s MV PHT Velocity 129.0 cm/s MV Deceleration [place] 502.0 cm/s MV Pressure Half Time 77.1 ms MV Area PHT 2.9 cm MV Deceleration Time 204.0 ms TR Peak Velocity 328.0 cm/s TR Peak Gradient 43.0 mmHg Right Atrial Pressure 5.0 mmHg Pulmonary Artery Systolic Pressu 48.0 mmHg Right Ventricular Systolic Press 48.0 mmHg PV Peak Velocity 134.0 cm/s PV Peak Gradient 7.2 mmHg PV Mean Velocity 86.4 cm/s PV Mean Gradient 4.0 mmHg PV Velocity Time Integral 21.9 cm LV E' Lateral Velocity 10.2 cm/s Mitral E to LV E' Lateral Ratio 11.4 LV E' Septal Velocity 10.6 cm/s Mitral E to LV E' Septal Ratio 10.9
[2016-08-31 15:30] VITALS: BP 122/70
--- NOTE | 2016-08-31 16:18 | PN- Cardiology ---
Subjective Subjective: * No complaints. * atrial fibrillation with good rate control. * worsening anemia Objective Vital Signs and I&Os Vital Signs Date Time Temp Pulse Resp B/P B/P Pulse O2 O2 Flow FiO2 Mean Ox Delivery Rate 08/31 942 140/88 08/31 822 98.7 75 18 132/70 96 Room Air 08/30 2104 86 138/68 Intake & Output 08/31 1600 08/31 0000 08/30 1600 08/30 0000 Intake Total 983 221 4719 Output Total 400 950 237 020 0209 Balance -160 -350 350 -400 -1400 Intake, IV 500 Intake, Oral 240 600 650 Output, Urine 400 [phone] 2913 Patient 179 lb 182 lb Weight Weight Standing Scale Standing Scale Measurement Method Physical Exam: General: WD/WN male in NAD; awake and responsive with confusion Neck: no JVD Heart: irregularly irregular Lungs: decreased air movement with scant crackles at bases bilaterally Extremities: no edema Assessment/Plan Assessment/Plan * Shortness of breath of unclear etiology with minimal fever and normal WBC count. Continue antibiotics for now and continue to diurese with Lasix at 40mg IV daily. Obtain an ABG on room air. His V/Q scan was low probability for a PE. * Continue Xarelto for now and follow his H/H. Guaiac all stools. Continue telemetry? Yes
[2016-08-31 23:10] LABS: ABSOLUTE BASOPHIL COUNT 0 /CUMM (0.0-0.2); ABSOLUTE EOSINOPHIL COUNT 0.2 /CUMM (0.0-0.7); ABSOLUTE LYMPH COUNT 0.7 /CUMM (1.2-3.4); ABSOLUTE MONOCYTE COUNT 0.7 /CUMM (0.10-0.60); BASOPHIL % 0.4 % (0.0-2.0); EOSINOPHIL % 3.4 % (0-5); GRANULOCYTE % 70.9 % (42.2-75.2); HEMATOCRIT 25.2 % (42-52); MEAN CORPUSCULAR HGB CONC 32.7 G/DL (33.0-37.0); MEAN CORPUSCULAR VOLUME 91.8 FL (80.0-94.0); MEAN PLATELET VOLUME 8.1 FL (7.4-10.4); PLATELET COUNT 184 /CUMM (130-400); RBC DISTRIBUTION WIDTH 15.3 % (11.5-14.5); RED BLOOD CELL CT 2.74 /CUMM (4.70-6.10); WHITE BLOOD CELL COUNT 5.6 /CUMM (4.8-10.8)
[2016-09-01 00:59] VITALS: BP 132/62
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
[2016-09-01 08:04] LABS: ABSOLUTE BASOPHIL COUNT 0 /CUMM (0.0-0.2); ABSOLUTE EOSINOPHIL COUNT 0.2 /CUMM (0.0-0.7); ABSOLUTE MONOCYTE COUNT 0.6 /CUMM (0.10-0.60); MEAN PLATELET VOLUME 8.4 FL (7.4-10.4); RBC DISTRIBUTION WIDTH 15.2 % (11.5-14.5); RED BLOOD CELL CT 2.48 /CUMM (4.70-6.10)
[2016-09-01 08:07] VITALS: BP 130/72
[2016-09-01 08:28] LABS: ABSOLUTE GRANULOCYTE CT 4.2 /CUMM (1.4-6.5); ABSOLUTE LYMPH COUNT 0.7 /CUMM (1.2-3.4); BASOPHIL % 0.4 % (0.0-2.0); EOSINOPHIL % 3.7 % (0-5); GRANULOCYTE % 72.3 % (42.2-75.2); HEMATOCRIT 24.5 % (42-52); MEAN CORPUSCULAR HGB CONC 33.7 G/DL (33.0-37.0); PLATELET COUNT 184 /CUMM (130-400); WHITE BLOOD CELL COUNT 5.8 /CUMM (4.8-10.8)
[2016-09-01 08:39] LABS: MEAN CORPUSCULAR HGB 33.3 PG (27.0-31.0)
[2016-09-01 08:41] LABS: MEAN CORPUSCULAR VOLUME 98.8 FL (80.0-94.0)
--- NOTE | 2016-09-01 13:06 | PN- Cardiology ---
Subjective Subjective: * Breathing is improved. * Left arm is swollen. * ventricular paced rhythm with short run of NSVT noted * creatinine 1.4 with potassium 3.4 Objective Vital Signs and I&Os Vital Signs Date Time Temp Pulse Resp B/P B/P Pulse O2 O2 Flow FiO2 Mean Ox Delivery Rate 09/01 924 95 Room Air 09/01 0852 68 130/72 09/01 0807 98.7 68 20 130/72 93 Room Air 09/01 0800 Room Air Room Air 09/01 0059 98.3 71 16 132/62 97 Room Air 09/01 0000 Room Air 08/31 2124 128/68 08/31 1530 98.0 68 16 122/70 98 Room Air Intake & Output 09/01 1600 09/01 0800 09/01 0000 08/31 1600 08/31 0808/31 0000 Intake Total 75 620 700 240 600 Output Total 248 325 5517 400 950 Balance -175 120 -400 -160 -350 Intake, Blood 350 Product Intake, IV 30 Intake, Oral 75 240 700 240 600 Number 2 Bowel Movements Output, Urine 925 586 4383 400 950 Patient 180 lb 179 lb Weight Weight Chair scale Standing Scale Measurement Method Physical Exam: General: WD/WN male in NAD; awake and responsive with confusion Neck: no JVD Heart: irregularly irregular Lungs: decreased air movement bilaterally Extremities: no edema Assessment/Plan Assessment/Plan * Shortness of breath of unclear etiology with minimal fever and normal WBC count. Complete course of antibiotics. Change Lasix to 40mg PO daily. 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 I would consider the possibilty of a PE despite his negative V/Q scan. He should ideally be on chronic anticoagulation for his atrial fibrillation which will also serve to help prevent a PE. Continue Xarelto and follow his H/H. Guaiac all stools. * Replete potassium to 4.0 and monitor for recurrent episodes of VT. Continue telemetry? Yes
[2016-09-01 16:33] VITALS: BP 108/70
[2016-09-01 22:38] VITALS: BP 132/70
--- NOTE | 2016-09-02 06:10 | PN- Housestaff ---
See Addendum Subjective Follow-up For: Acute hypoxic respiratory failure CHF exacerbation Hx. of Alee on Xarelto Tele-Events Since Last Visit: Afib, single pacing HR 66-80 with PVCs and paced beats Subjective: Patient seen and examined at bedside. Resting comfortably in bed with no new complaints. He is again confused and disoriented this morning. Denies any chest pain, dyspnea. No events reported overnight. Review of Systems Constitutional: Reports: see HPI. Objective Last 24 Hrs of Vital Signs/I&O Vital Signs Date Time Temp Pulse Resp B/P B/P Pulse O2 O2 Flow FiO2 Mean Ox Delivery Rate 09/02 0854 68 130/60 09/02 0818 97.7 68 20 130/60 93 09/02 0000 Room Air 09/01 2238 98.0 79 22 132/70 99 Room Air 09/01 2145 79 132/70 09/01 2050 96 Room Air 09/01 1633 97.7 66 16 108/70 95 Room Air 09/01 1438 Room Air Room Air 09/01 0925 95 Room Air Intake & Output 09/02 1600 09/02 0800 09/02 0000 Intake Total 150 240 Output Total 200 300 Balance -50 -60 Intake, Oral 150 240 Number 1 0 Bowel Movements Output, Urine 200 300 Patient 81.306 kg Weight Weight Chair scale Measurement Method Physical Exam General Appearance: Alert, Cooperative, No Acute Distress Other Physical Findings: Cardiovascular: Regular Rate, Normal S1, Normal S2, murmur heard in the aortic area. Lungs: decreased air entry bilaterally. Abdomen: Normal Bowel Sounds, Soft, No Tenderness Neurological: Normal Speech, Strength at 5/5 X4 Ext, Normal Tone Extremities: 1+ pitting edema noted in both LE extending upto the knees; leftarm is warpped, and per family had an accident few weeks ago, treated at [facility]. Current Medications: Current Medications Sig/Edvin Start time Last Medication Dose Route Stop Time Status Admin Acetaminophen 650 MG Q6P PRN 08/28 2300 AC PO Albuterol Sulfate 3 ML Q4P PRN 09/01 0915 AC 09/01 INH 0921 Ceftazidime 1,000 MG Q12H 08/29 0000 DC 09/02 IV 09/02 0600 0027 Cholecalciferol 1,000 IU DAILY 08/29 1000 AC 09/02 PO 0856 Ciprofloxacin 250 MG BID 09/02 1000 AC 09/02 PO 09/06 0959 0854 Ferrous Sulfate 325 MG DAILY 08/29 1000 AC 09/02 PO 0854 Finasteride 5 MG DAILY 08/29 1000 AC 09/02 PO 0856 Furosemide 40 MG DAILY 09/02 1000 AC 09/02 PO 0855 Furosemide 40 MG DAILY 09/01 1000 DC 09/01 IV 0847 Gabapentin 100 MG TID 08/29 1000 AC 09/02 PO 0856 Levothyroxine Sodium 0.05 MG DAILY AC 08/29 0700 AC 09/02 PO 0549 Morphine Sulfate 4 MG Q12P PRN 08/28 2300 AC IV Oxycodone/ 1 TAB Q6P PRN 08/28 2300 AC Acetaminophen PO Potassium Chloride 20 MEQ ONCE ONE 09/01 1600 DC 09/01 PO 09/01 1601 1658 Potassium Chloride 10 MEQ ONCE ONE 09/01 0930 CAN IV 09/01 0931 Potassium Chloride 10 MEQ ONCE ONE 09/01 0830 CAN IV 09/01 0831 Rivaroxaban 15 MG DAILY 08/30 1700 AC 09/02 PO 0856 Tamsulosin HCl 0.4 MG BID 08/29 1000 AC 09/02 PO 0854 Vitamin A/Vitamin D 1 FREDDIE BID 09/01 1000 AC 09/02 TOP 0857 Last 24 Hrs of Lab/Saud Results Last 24 Hrs of Labs/Mics: Laboratory Tests 09/02/16 0604: Anion Gap 10, Estimated GFR 57 L, BUN/Creatinine Ratio 22.5, Magnesium 2.1, CBC w Diff NO MAN DIFF REQ, RBC 2.64 L, MCV 96.0 H, MCH 31.9 H, RDW 15.6 H, MPV 8.0, Gran % 71.2, Lymphocytes % 12.4 L, Monocytes % 11.4 H, Eosinophils % 4.4, Basophils % 0.6, Absolute Granulocytes 4.1, Absolute Lymphocytes 0.7 L, Absolute Monocytes 0.7 H, Absolute Eosinophils 0.3, Absolute Basophils 0, PUBS MCHC 33.2 Assessment/Plan Assessment: is an 86 yo man with PMHx. significant for HTN, CAD, A.fib on Xarelto , Bradycardia s/p pacemaker placed at 03/19/2014, AAA s/p repair, Hx. of prostatic cancer presented to ED with a c/o of SOB. He is currently admitted to telemetry for acute hypoxic respiratory failure 2/2 exacerbation of CHF and HCAP. # Acute hypoxic respiratory failure, secondary to CHF exacerbation (heart failure with preserved ejection fraction) * Cont tele monitoring * Vitals per protocol * Oxygen support and TRC neb tx as needed * Plans as discussed below to treat for CHF # CHF exacberation * Cont Lasix 40mg QD PO * Cont to appreciate cardio recs # UTI Initially started on vanco and ceftazidime for HCAP (possibly Pseudomonas) the patient's clinical presentation was not consistent with the HCAP picture. As such Vanco has been d/c'd. * Switch IV Ceftazadime Q12 to PO Cipro 250mg BID (renally dosed by pharmacy) * Check CBC daily, trend WBC # Atrial fibrillation, rate controlled, status post pacemaker placement * Cont tele monitoring * Appreciate cardio recs * Cont Xarelto 15mg PO QD # Acute blood loss anemia H/H trending down for the past several days. Guaic positive. H/H stable s/p 1U pRBC transfusion. * CBC daily, trend H/H * Follow iron panel, B12, folate - WNL # Dementia * Consider following up with geriatrics service after discharge - Pain Pathway: Mild - DVT PPx: Xarelto - Code Status: Full code for now. (Given patient's condition, and quality of lifestyle, Code status has to be discussed in details, including long-term plans of care with the family, power of insurance defense attorney as soon as possible.) Problem List: 1. ACUTE RENAL FAILURE 2. UTI (urinary tract infection) 3. Dementia 4. Acute respiratory failure 5. CHF (congestive heart failure) 6. Atrial fibrillation with normal ventricular rate 7. CHF (congestive heart failure) 8. Afib Pain Ratin Pain Location: 0 Pain Goal: Remain pain free Pain Plan: Mild path Tomorrow's Labs & Rationales: CBC BEP
[2016-09-02 07:43] LABS: ABSOLUTE BASOPHIL COUNT 0 /CUMM (0.0-0.2); ABSOLUTE EOSINOPHIL COUNT 0.3 /CUMM (0.0-0.7); ABSOLUTE GRANULOCYTE CT 4.1 /CUMM (1.4-6.5)
[2016-09-02 08:05] LABS: ABSOLUTE LYMPH COUNT 0.7 /CUMM (1.2-3.4); ABSOLUTE MONOCYTE COUNT 0.7 /CUMM (0.10-0.60); BASOPHIL % 0.6 % (0.0-2.0); EOSINOPHIL % 4.4 % (0-5); GRANULOCYTE % 71.2 % (42.2-75.2); HEMATOCRIT 25.3 % (42-52); MEAN CORPUSCULAR HGB 31.9 PG (27.0-31.0); MEAN CORPUSCULAR HGB CONC 33.2 G/DL (33.0-37.0); PLATELET COUNT 203 /CUMM (130-400); RBC DISTRIBUTION WIDTH 15.6 % (11.5-14.5); RED BLOOD CELL CT 2.64 /CUMM (4.70-6.10); WHITE BLOOD CELL COUNT 5.7 /CUMM (4.8-10.8)
[2016-09-02 08:18] VITALS: BP 130/60
[2016-09-02] MEDS ORDERED: POTASSIUM CHLO20 ME2 PO (09:43)
[2016-09-02] MEDS ORDERED: CIPROFLOXACIN250 M1 PO (09:58)
[2016-09-02] MEDS ORDERED: LASIX40 M1 PO (14:32)
[2016-09-02 15:52] VITALS: BP 130/60
== END 2016-09-02 16:47 | DRG 291 ==
LOC: ERH 16:32 → ERHI 18:17 → 1NO 18:17 → ENRESERV 19:34 → 1NO 22:08 → ENPENDDIS 09-02 15:50 → 1NO 09-02 16:47
PROVIDERS: Emergency Medicine; Student in an Organized Health Care Education/Training Program; ADMIT Internal Medicine
PROC: 30233N1 Transfusion of Nonautologous Red Blood Cells into Peripheral Vein, Percutaneous Approach (ICD-10-PCS; principal; 2016-08-31)
DX: I11.0 Hypertensive heart disease with heart failure (principal); J96.01 Acute respiratory failure with hypoxia; I47.2 Ventricular tachycardia; N17.9 Acute kidney failure, unspecified; D62 Acute posthemorrhagic anemia; C61 Malignant neoplasm of prostate; F03.90 Unspecified dementia, unspecified severity, without behavioral disturbance, psychotic disturbance, mood disturbance, and anxiety; D64.9 Anemia, unspecified; N39.0 Urinary tract infection, site not specified; I48.91 Unspecified atrial fibrillation; Z79.01 Long term (current) use of anticoagulants; I50.33 Acute on chronic diastolic (congestive) heart failure; I25.10 Atherosclerotic heart disease of native coronary artery without angina pectoris; Z95.0 Presence of cardiac pacemaker; E78.5 Hyperlipidemia, unspecified
CPT/HCPCS: 1NSP; 36415; 78582; 81001; 82436; 86902; 86920; 86922; 87040; 87070; 87086; 87449; 87450; 93005; 93010; 93306; 93970; 94799; 96374; 96375; 97110-GO; 97112-GO; 97116-GO; 97162-GP; 97530-GO; 99291; A9540; A9558; J0696; J0713; J1644; J1940; J3370; J7040; P9016

== ENCOUNTER 2017-07-04 18:52 | Inpatient (IN) | payer OTHER, BC, MEDICARE ==
[~2017-07-04] VITALS: Ht 177.8 cm; Wt 75.0 kg
[~2017-07-04 18:52] MED LIST changes: +CIPROFLOXACIN250 M1 PO; +FERROUS SULFAT325 M3 PO; +FINASTERIDE5 M1 PO; +FUROSEMIDE20 M1 PO; +GABAPENTIN100 M2 PO; +LASIX40 M1 PO; +LEVOTHYROXINE50 MCG PO; +LEVSIN-SL0.125 MG SL; +OMEPRAZOLE20 M2 PO; +POTASSIUM CHLO20 ME2 PO; +TAMSULOSIN HCL0.4 M1 PO; +VITAMIN D31000 UNI2 PO; +XARELTO15 M2 PO; +ZOFRAN ODT4 M1 SL
--- NOTE | 2017-07-04 19:33 | ED GENERAL ADULT ---
History of Present Illness General Chief Complaint: General Adult Stated Complaint: ELAVATED BP ACCORDING TO VISITING NURSE & WHEEZING Source: patient, family, old records Exam Limitations: no limitations Vital Signs & Intake/Output Vital Signs & Intake/Output Vital Signs Date Time Temp Pulse Resp B/P B/P Pulse O2 O2 Flow FiO2 Mean Ox Delivery Rate 07/04 2058 97.7 75 18 122/67 98 Room Air 07/04 2010 Room Air 07/04 1940 112/58 07/04 1900 96.1 98 18 120/78 Allergies Coded Allergies: No Known Allergies (04/08/17) Reconcile Medications Cholecalciferol (Vitamin D3) 1,000 UNIT TABLET 1 TAB PO DAILY SUPPLEMENT ( Reported) Ferrous Sulfate 325 MG (65 MG IRON) TABLET 1 TAB PO TID SUPPLEMENT (Reported) Finasteride 5 MG TABLET 1 TAB PO DAILY prostate (Reported) Furosemide (Lasix) 40 MG TABLET 40 MG PO DAILY DIURESIS Gabapentin 100 MG CAPSULE 1 CAP PO TID NEUROOPATHY (Reported) Hyoscyamine Sulfate (Levsin-Sl) 0.125 MG TAB.SUBL 1-2 TAB SL Q4P PRN abdominal pain Levothyroxine Sodium 50 MCG TABLET 1 TAB PO DAILY THYROID (Reported) Omeprazole 20 MG CAPSULE.DR 1 CAP PO DAILY GASTRITIS Ondansetron (Zofran Odt) 4 MG TAB.RAPDIS 1 TAB SL TID PRN nausea Tamsulosin HCl 0.4 MG CAP.ER.24H 1 CAP PO BID (Reported) Triage Note: PT STATES THAT HE HAS INCREASED BP. BILATERAL SWELLING AND CRACKLES AT BASES PER VISITING NURSE. Triage Nurses Notes Reviewed? yes HPI: Patient brought in by his family for evaluation. Patient sons state that his visiting nurse was at the house today and noticed that his blood pressure was very high and he had fluid in the lungs. Patient is also noticed that his right leg has been swollen for the past few weeks. Patient denies any chest pain. Patient chronically sleeps in a recliner. There is no anorexia. There is no nausea or vomiting. There are no fevers or chills. There is no coughing. Patient usually ambulatory with a walker. Patient denies any shortness of breath however he has dementia. Past History Travel History Traveled to [place] past 21 day No Medical History Any Pertinent Medical History? 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 No Review of Systems Review of Systems Constitutional: Reports: no symptoms. EENTM: Reports: no symptoms. Respiratory: Reports: no symptoms. Cardiovascular: Reports: no symptoms. GI: Reports: no symptoms. Genitourinary: Reports: no symptoms. Musculoskeletal: Reports: no symptoms. Skin: Reports: no symptoms. Neurological/Psychological: Reports: no symptoms. Hematologic/Endocrine: Reports: no symptoms. Immunologic/Allergic: Reports: no symptoms. All Other Systems: Reviewed and Negative Physical Exam Physical Exam General Appearance: well developed/nourished, alert, awake, mild distress Head: atraumatic, normal appearance Eyes: Bilateral: PERRL, EOMI. Ears, Nose, Throat: normal pharynx, normal ENT inspection, hearing grossly normal Neck: normal inspection, supple, full range of motion, NO JVD Respiratory: crackles (BIBASILAR) Cardiovascular: normal peripheral pulses, irregularly irregular Gastrointestinal: normal bowel sounds, soft, non-tender, no organomegaly Back: normal inspection, normal range of motion Extremities: normal capillary refill, normal range of motion, pedal edema (RLE) Neurologic/Psych: no motor/sensory deficits, awake, alert, normal mood/affect Skin: intact, normal color, warm/dry Lymphatic: no anterior cervical kylah Core Measures ACS in differential dx? No CVA/TIA Diagnosis: No Sepsis Present: No Sepsis Focused Exam Completed? No Progress Differential Diagnoses I considered the following diagnoses in my evaluation of the patient: [Edema, congestive heart failure, DVT, electrolyte abnormality] Plan of Care: Orders Procedure Date/time Status Telemetry/Mechanical Artist 07/04 1899 Active B-TYPE NATRIURETIC PEP (BNP) 07/04 1899 Active TROPONIN LEVEL 07/04 1854 Complete PROTHROMBIN TIME 07/04 1854 Complete COMPREHENSIVE METABOLIC PANEL 07/04 1854 Complete CBC WITHOUT DIFFERENTIAL 07/04 1854 Complete EKG 07/04 1854 Active Laboratory Tests 07/04/171931: Smn-Y-Njwynaujgdx Pept Pending 07/04/171931: Anion Gap 5, Estimated GFR 48 L, BUN/Creatinine Ratio 19.3, Glucose 120 H, Calcium 7.9 L, Total Bilirubin 0.8, AST 18, ALT 24, Alkaline Phosphatase 156 H , Troponin I 0.03, Total Protein 6.4, Albumin 2.7 L, Globulin 3.7, Albumin/ Globulin Ratio 0.7 L, PT 12.0, INR 1.10, CBC w Diff NO MAN DIFF REQ, RBC 2.55 L, MCV 106.4 H, MCH 36.2 H, MCHC 34.0, RDW 17.1 H, MPV 8.3, Gran % 77.0 H, Lymphocytes % 12.7 L, Monocytes % 7.5, Eosinophils % 2.2, Basophils % 0.6, Absolute Granulocytes 4.9, Absolute Lymphocytes 0.8 L, Absolute Monocytes 0.5, Absolute Eosinophils 0.1, Absolute Basophils 0 Diagnostic Imaging: Viewed by Me: Radiology Read, Ultrasound. Discussed w/RAD: Radiology Read, Ultrasound. Radiology Impression: PATIENT: XENA FLORES PRESENT AGE: 87 PATIENT ACCOUNT NO: [id number] : 30 LOCATION: [facility] ORDERING PHYSICIAN: Fuad Jordan MD SERVICE DATE: 07/04/17 EXAM TYPE: US - US-DUPLEX VENOUS EXTREM UNI EXAMINATION: US TRIPLEX LOWER EXTREMITY, RIGHT CLINICAL INFORMATION: Edema. Swelling. COMPARISON: None TECHNIQUE: Color- flow triplex imaging with spectral analysis and compression Doppler were performed on the lower extremity. FINDINGS: Respiratory variation, normal compression and augmented flow are noted throughout the lower extremity. The visualized common femoral vein, superficial femoral vein, profunda femoral vein, popliteal vein and midcalf peroneal and posterior tibial venous segments show no evidence of deep venous thrombosis. There is no Rucker's cyst. IMPRESSION: Normal triplex scan without evidence of deep venous thrombosis involving the lower extremity. DICTATED BY: Travis Ibarra MD DATE/TIME DICTATED:07/04/172124 SALES TEAM LEADER:FRANCES DATE/TIME TRANSCRIBED:07/04/172124 CONFIDENTIAL, DO NOT COPY WITHOUT APPROPRIATE AUTHORIZATION. <Electronically signed in Other Vendor System> SIGNED BY: Travis Ibarra MD 07/04/172128 CXR Impression: PATIENT: XENA FLORES PRESENT AGE: 87 PATIENT ACCOUNT NO: [id number] : 30 LOCATION: [facility] ORDERING PHYSICIAN: Chaparro DAWKINS SERVICE DATE: 07/04/17 EXAM TYPE: RAD - XRY- PORTABLE CHEST XRAY EXAMINATION: XR PORTABLE CHEST CLINICAL INFORMATION: Dyspnea. Leg swelling. COMPARISON: Portable chest 03/02/2017 TECHNIQUE: Portable frontal view of the chest was obtained. 7:26 PM FINDINGS: There is a large volume right pleural effusion. This is similar to the exam of 03/02/2017. No significant left pleural effusion. The central hilar vessels are mildly prominent but there is no overt pulmonary edema. The severity of the vascular congestion has diminished since the exam of 03/02/2017. Heart size enlarged. Pacemaker lead unchanged position in the right ventricle. IMPRESSION: Persistent large volume right pleural effusion. Mild central vascular prominence but the pulmonary vascular engorgement is less severe than the exam of 03/02/2017. DICTATED BY: Travis Ibarra MD DATE/TIME DICTATED:07/04/172021 SALES TEAM LEADER :FRANCES DATE/TIME TRANSCRIBED:07/04/172021 CONFIDENTIAL, DO NOT COPY WITHOUT APPROPRIATE AUTHORIZATION. <Electronically signed in Other Vendor System> SIGNED BY: Travis Ibarra MD 07/04/172026 Initial ED EKG: A FIB WITH T WAVE INVERSIONS, UNCHANGED FROM PRIOR Prior EKG: unchanged Rhythm Strip: atrial fibrillation Comments: Patient has A. fib with is not on anticoagulation. Son states that his workers compensation examiner has talked to them about the pros and cons of anticoagulation and they all agreed to not give him anticoagulation for his A. fib. Patient was unable to even sit up at the side of the bed secondary to weakness and shortness of breath. Patient will be admitted to telemetry for fluid overloaded. Patient will receive IV Lasix. Departure Departure Disposition: STILL A PATIENT Condition: Stable Clinical Impression Primary Impression: Fluid overload Referrals: Damon RECIO,Jay Curiel (PCP/Family) Departure Forms: Customer Survey General Discharge Information Admission Note Spoke With: Irena Thompson MD Documentation of Exam: Documentation of any treatments & extenuating circumstances including Concerns Regarding Discharge (functional status, medication knowledge or non-compliance, living conditions, etc.) that warrant an admission rather than observation: [ TELE ADMISSION, IV DIURESIS, SERIAL ENZYMES, CARDIOLOGY CONSULTATION, PT EVALUATIONAND TREATMENT] Critical Care Note Critical Care Note Critical Care Time: non-applicable
[2017-07-04 19:42] LABS: ABSOLUTE BASOPHIL COUNT 0 /CUMM (0.0-0.2); ABSOLUTE EOSINOPHIL COUNT 0.1 /CUMM (0.0-0.7); ABSOLUTE GRANULOCYTE CT 4.9 /CUMM (1.4-6.5); ABSOLUTE LYMPH COUNT 0.8 /CUMM (1.2-3.4); ABSOLUTE MONOCYTE COUNT 0.5 /CUMM (0.10-0.60); BASOPHIL % 0.6 % (0.0-2.0); EOSINOPHIL % 2.2 % (0-5); HEMATOCRIT 27.2 % (42-52); MEAN CORPUSCULAR HGB 36.2 PG (27.0-31.0); MEAN CORPUSCULAR VOLUME 106.4 FL (80.0-94.0); MEAN PLATELET VOLUME 8.3 FL (7.4-10.4); PLATELET COUNT 147 /CUMM (130-400); RBC DISTRIBUTION WIDTH 17.1 % (11.5-14.5); RED BLOOD CELL CT 2.55 /CUMM (4.70-6.10); WHITE BLOOD CELL COUNT 6.4 /CUMM (4.8-10.8)
--- NOTE | 2017-07-04 20:27 | RADIOLOGY REPORT ---
EXAMINATION: XR PORTABLE CHEST CLINICAL INFORMATION: Dyspnea. Leg swelling. COMPARISON: Portable chest 03/02/2017 TECHNIQUE: Portable frontal view of the chest was obtained. 7:26 PM FINDINGS: There is a large volume right pleural effusion. This is similar to the exam of 03/02/2017. No significant left pleural effusion. The central hilar vessels are mildly prominent but there is no overt pulmonary edema. The severity of the vascular congestion has diminished since the exam of 03/02/2017. Heart size enlarged. Pacemaker lead unchanged position in the right ventricle. IMPRESSION: Persistent large volume right pleural effusion. Mild central vascular prominence but the pulmonary vascular engorgement is less severe than the exam of 03/02/2017.
--- NOTE | 2017-07-04 21:29 | ULTRASOUND REPORT ---
EXAMINATION: US TRIPLEX LOWER EXTREMITY, RIGHT CLINICAL INFORMATION: Edema. Swelling. COMPARISON: None TECHNIQUE: Color-flow triplex imaging with spectral analysis and compression Doppler were performed on the lower extremity. FINDINGS: Respiratory variation, normal compression and augmented flow are noted throughout the lower extremity. The visualized common femoral vein, superficial femoral vein, profunda femoral vein, popliteal vein and midcalf peroneal and posterior tibial venous segments show no evidence of deep venous thrombosis. There is no Rucker's cyst. IMPRESSION: Normal triplex scan without evidence of deep venous thrombosis involving the lower extremity.
--- NOTE | 2017-07-04 21:54 | History & Physical ---
Kevin RECIO,[facility] 07/04/17 2153: General Information and HPI MD Statement: I have seen and personally examined XENA FLORES and documented this H&P. The patient is a 87 year old M who presented with a patient stated chief complaint of [edema]. Source of Information: patient Exam Limitations: dementia History of Present Illness: 87 yo M pmhx of HTN, A. fib s/p Pacemaker and AICD (off Xeralto), prostate cancer, CAD, AAA repair, dementia, CKD, dementia presenting for edema. The patient states that she has had worsening leg swelling since his last admission. Of note the patient does have a history of dementia and is unsure why he was brought to the hospital. The patient states that he was never informed about his hypertension. The patient states that the nurses have informed him about fluid in the lung weeks ago. States that his is the person who takes care of him. States that he uses a walker at baseline. States that he has been told about his weight. He denies any shortness of breath, congestion, headaches, fevers, chills, chest pain, shortness of breath, abdominal pain, change in appetite, or changes in elimination. Please see Dr. Crespo's note regarding conversation with the patient's son Jose A for further history as the patient has a history of dementia. Allergies/Medications Allergies: Coded Allergies: No Known Allergies (04/08/17) 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 WALL Respiratory: NONE Gastrointestinal: BARRETTS ESOPHAGUS GI BLEED Hepatic: NONE Renal: NONE Musculoskeletal: L HAND FRX- 3,4,5TH METACARPALS Psychiatric: NONE Endocrine: NONE Blood Disorders: NONE Cancer(s): NONE MUMPS DEVELOPER/Reproductive: NONE History of MRSA: No History of VRE: No History of CDIFF: No Surgical History Surgical History: pacemaker Past Family/Social History Family History Relations & Conditions if any BROTHER FH: lung cancer Psychosocial History Services at Home: NONE ETOH Use: denies use Illicit Drug Use: denies illicit drug use Review of Systems Review of Systems Constitutional: Reports: see HPI (weight gain). Cardiovascular: Reports: no symptoms. Respiratory: Reports: no symptoms. GI: Reports: no symptoms. Genitourinary: Reports: no symptoms. Musculoskeletal: Reports: no symptoms. Comments The patient denies any SOB or congestion. He did not know he has had weight gain /edema until nurses told him. Exam & Diagnostic Data Last 24 Hrs of Vital Signs/I&O Vital Signs Date Time Temp Pulse Resp B/P B/P Pulse O2 O2 Flow FiO2 Mean Ox Delivery Rate 07/05 2351 Nasal 2.0L Cannula 07/05 2351 97.6 82 20 120/60 100 Nasal 2.5L Cannula 07/048 97.3 80 20 134/83 95 Nasal 2.0L Cannula 07/04 2058 97.7 75 18 122/67 98 Room Air 07/04 2010 Room Air 07/04 1940 112/58 07/04 1900 96.1 98 18 120/78 Intake & Output 07/05 0800 07/05 0000 07/04 1600 Intake Total Output Total 200 Balance -200 Output, Urine 200 Patient 172 lb Weight Weight Bed scale Measurement Method Physical Exam General Appearance Alert, No Acute Distress, Oriented to name only., strong urine smell Neck jvd+ Cardiovascular Regular Rate, Normal S1, Normal S2 Lungs decrease right lower lungs ounds, basilar crackles Abdomen Normal Bowel Sounds, Soft, No Tenderness, abd fluid wave+ Extremities RLE swelling > Left, cold distal extremities (foot), generalized anasarca with wheezing of fluids in upper and ower extremities Vascular 2+ radial pulses Last 24 Hrs of Labs/Saud: Laboratory Tests 07/05/17 1755: Lactate Dehydrogenase Pending, PT Pending, INR Pending, APTT Pending 07/05/17 1345: Pleural pH 7.44 07/05/17 1345: Fluid WBC 153 H, Fld Total RBCs Counted 1150 H 07/05/17 1345: Lymphocytes 48, % Normal PMNs 10, [facility], Phlebotomy Draw Site RT THORA, Fluid Glucose 83, Fluid Total Protein < 2.0, Fluid Albumin < 1.0, Fluid LDH 266, Fluid Amylase < 30 07/05/17 0615: Anion Gap 7, Estimated GFR 48 L, BUN/Creatinine Ratio 17.9, Troponin I 0.03 07/05/17 0615: Sodium Cancelled, Potassium Cancelled, Chloride Cancelled, Carbon Dioxide Cancelled, Anion Gap Cancelled, BUN Cancelled, Creatinine Cancelled, BUN/ Creatinine Ratio Cancelled 07/05/17 0205: Troponin I 0.03 07/04/172255: Urinalysis PACKD H, Urine Color YEL, Urine Clarity CLDY H, Urine pH 8.5 H, Ur Specific [place] 1.010, Urine Protein 30 H, Urine Ketones NEG, Urine Nitrite NEG, Urine Bilirubin NEG, Urine Urobilinogen 1.0, Ur Leukocyte Esterase LARGE H , Ur Microscopic SEDIMENT EXAMINED, Urine WBC 15-25 H, Ur Epithelial Cells RARE , Urine Crystals 3+ TRIP PHOS H, Urine Bacteria MANY H, Urine Mucus RARE, Urine Hemoglobin NEG, Urine Glucose NEG 07/04/171931: Iron 56, TIBC 278, Ferritin 60.4, Bos-K-Uodflyjihrz Pept 7420 H, Free T4 1.10, Total T3 1.20, TSH &T3 &Free T4 Intrp 25.300 H 07/04/171931: Anion Gap 5, Estimated GFR 48 L, BUN/Creatinine Ratio 19.3, Glucose 120 H, Calcium 7.9 L, Total Bilirubin 0.8, AST 18, ALT 24, Alkaline Phosphatase 156 H , Troponin I 0.03, Total Protein 6.4, Albumin 2.7 L, Globulin 3.7, Albumin/ Globulin Ratio 0.7 L, PT 12.0, INR 1.10, CBC w Diff NO MAN DIFF REQ, RBC 2.55 L, MCV 106.4 H, MCH 36.2 H, MCHC 34.0, RDW 17.1 H, MPV 8.3, Gran % 77.0 H, Lymphocytes % 12.7 L, Monocytes % 7.5, Eosinophils % 2.2, Basophils % 0.6, Absolute Granulocytes 4.9, Absolute Lymphocytes 0.8 L, Absolute Monocytes 0.5, Absolute Eosinophils 0.1, Absolute Basophils 0 Microbiology 07/05 134 BODY FLUID: Body Fluid Culture - RES 07/05 1344 BODY FLUID: Gram Stain - RES 07/05 2255 URINE ROUT: Urine Culture - RECD Assessment/Plan Assessment: A: 87 yo M pmhx of HTN, A. fib s/p Pacemaker and AICD (off Xeralto), prostate cancer, CAD, AAA repair, dementia, CKD, dementia presenting for edema most likely due to chf. P: #CHF exascerbation Trop .03 Last echo 2017: EF 60% RLE doppler negative for dvt CXR: Persistent large volume right pleural effusion. Mild central vascular prominence but the pulmonary vascular engorgement is less severe than the exam of 03/02/2017. -serial trops and ekg -iv lasix -strict i/o, daily wieghts -f/u echo -cardiology consult -f/u LLE doppler for DVT -PT/OT #anemia H/h 9.2/27.2 -Chronic and at baseline, cont to monitor -cont iron #CKD Cr 1.4 -chronic, at baseline, cont to monitor #hypocalciemia 7.9 -cont to monitor #elevated ALP ALP 156, other LFTs tests normal -cont to monitor #chronic medical conditions: hypothyrodism, chronic pain, bph -cont synthroid, gabapentin, finasteride, vit D #DVT prophylaxis: Heparin subq #FULL CODE As Ranked By This Provider Problem List: 1. CHF (congestive heart failure) Core Measures/Misc (01/09) Acute Coronary Syndrome ACS Diagnosis: No Congestive Heart Failure Congestive Heart Failure Diagnosis Yes Cerebrovascular Accident CVA/TIA Diagnosis: No VTE (View Protocol) VTE Risk Factors Acute Medical Illness No Mechanical VTE Prophylaxis d/t Other No VTE Pharm Prophylaxis d/t NA PharmProphylax ordered Sepsis (View protocol) Sepsis Present: No David Crespo 07/04/17 2226: General Information and HPI Allergies/Medications Home Med list Cholecalciferol (Vitamin D3) 1,000 UNIT TABLET 1 TAB PO DAILY SUPPLEMENT ( Reported) Ferrous Sulfate 325 MG (65 MG IRON) TABLET 1 TAB PO TID SUPPLEMENT (Reported) Finasteride 5 MG TABLET 1 TAB PO DAILY prostate (Reported) Furosemide (Lasix) 40 MG TABLET 40 MG PO DAILY DIURESIS Gabapentin 100 MG CAPSULE 1 CAP PO TID NEUROOPATHY (Reported) Levothyroxine Sodium 50 MCG TABLET 1 TAB PO DAILY THYROID (Reported) Omeprazole 20 MG CAPSULE.DR 1 CAP PO DAILY GASTRITIS Ondansetron (Zofran Odt) 4 MG TAB.RAPDIS 1 TAB SL TID PRN nausea Tamsulosin HCl 0.4 MG CAP.ER.24H 1 CAP PO BID (Reported) Resident Review Statement Resident Statement: discussed with internal recruiter, amended to note Other Findings: Mr Flores is a 87-year-old gentleman with a past history of atrial fibrillation previously on side also, currently not on any anticoagulation secondary to GI bleed, hypertension, prostate cancer, ? AAA repair hyperlipidemia, coronary artery disease, dementia, CHF, pacemaker in place, indwelling Little placed approximately 1 year ago was brought in for chief concern of elevated blood pressure and pedal edema. His visiting nurse noted that he had bibasilar crackles, and recommended him to go to [place] ER. Pt doesnt report any symptoms at all. Does not have any dyspnea, chest pain, palpitations, lightheadedness. Gives a h/o indiscretion to salt use. Last admission to [facility] 08/2016 for acute hypoxic respiratory failure. Secondary to pneumonia. Most of the history was obtained from patient's son Jose A who stated that the patient has been having worsening edema in the last 4-5 days, with increased serous discharge that soaked his clothes. He has been having right lower extremity edema for the last 6 months. No change in medication doses that were made recently. Reported occasional nonproductive cough. Also reported worsening abdominal distention in the last few weeks. No change in appetite, nausea vomiting or diarrhea. No fever, sick contacts, any exacerbating factors. At the time of admission-temperature 97.7 pulse rate 75, blood pressure 122/67, pulse ox 98% on room air. On examination: General Exam: Alert, Ox0, No acute distress, Skin: No rashes, no breakdown;HEENT : PERRLA, EOMI;Neck: Supple, JVD +, No cervical lymphadenopathy;CVS: Reg Rate, Normal S1,S2, diastolic murmur ;Resp:decreased air entry R>L, no ronchi/rales; Abdomen: Soft, No tenderness, Normal Bowel Sounds;Neuro: Normal Speech, Strength 5/5 b/l x 4 extremities, Sensation intact, CN III-XII NL, Reflexes 2+; Extremities: No cyanosis, 3+ pedal edema extending upto the abdomen, with serous discharge, no erythema no scrotal edema. Pertinent lab findings: WBC 6.4, hemoglobin 9.2, hematocrit 27.2, MCV 106, platelets 147, sodium 138, potassium 4.3, carbon dioxide 33, BUN 27, creatinine 1.4, proBNP pending, INR 1.10 EKG-atrial fibrillation, t wave inversions in the lateral leads. Chest x-ray revealed Persistent large volume right pleural effusion. Mild central vascular prominence but the pulmonary vascular engorgement is less severe than the exam of 03/02/2017. Left lower extremity ultrasound Doppler-Normal triplex scan without evidence of deep venous thrombosis involving the lower extremity. Last echocardiogram in 2017 1. Normal EF of 60%. 2. Moderate left atrial enlargement. 3. Mild mitral regurgitation. 4. Mild to moderate tricuspid regurgitation. 5. Trace aortic regurgitation. 6. Trace pulmonic regurgitation. 7. Moderate pulmonary hypertension. 8. Pacemaker lead noted in right cardiac chambers. 9. Large pleural effusion. Etiology in his case is likey ADHF, mostly right heart failure > left heart. He doesnt have any dyspnea, and vascular congestion but does have e/o abd distention, pedal edema. Etiology for RHFailure is likely increased Pulm art pressures. Indiscretion to salt use, low albumin might have caused these symtoms. Also, other hormonal causes such as hypothyroidism, mineralocorticoid excess can contribte in his case, but unlikely. Problem list: #1 acute decompensation of HFpEF #2 hypertension #3 anemia #4 atrial fibrillation #5 history of prostate cancer #6 hypothyroidism #7 Metabolic alkalosis #8 Pleural effusion Plan: 1. Continue iv lasix 40 BID 2. Assess the ins and outs 3. Caution with overzealous diuresis, since the pt might have right heart dysfuntion 4. 2D Echocardiogram 5. Cardiology consult 6. Serial ekgs and trops 7. continue LT4, check TSHR 8. Conisider starting SHILPA in the am, after cheking echo 9. Change little after conferring w/ urologist. 10. Continue finasteride for now. Defer the decision to continue to use it to the urologist 11. Check iron studies, iron supplementation for now. 12. Check UA, no abx for now. 13. Confirm the doses of all meds, since the doses are not confirmed on the list. 14. No AC for Afib for now. 15. Check US doppler for LLE, as per the attending. Housekeeping 1. DVT PPx- sc heparin 2. GI PPx- protonix. 3. CHF diet 4. Full code. Please discuss the code status with the family. The pts son will bring the paperwork. Irena Thompson 07/05/17 0401: Attending MD Review Statement Attending Statement Attending MD Statement: examined this patient, discuss w/resident/PA/YE[employer]KE [employer], agreed w/resident/PA/YE[employer] CAKE CUTTER, reviewed EMR data (avail), reviewed images, amended to note Attending Assessment/Plan: CC: leg swelling and shortness of breath PMH: HTN, A. fib s/p Pacemaker and AICD : off Xeralto, prostate cancer, CAD, AAA repair, dementia, , CKD, dementia Patient was suggested to go to ER by visiting nurse for worsening leg swelling and auscultation revealed crackles. History is obtained from patient's family was mentioned that patient has been progressively getting short of breath, more with exertion, denied any shortness of breath at rest, while lying down or PND. Patient has chronic cough which is unchanged. Patient's family also noticed significant increase in his leg swelling and now losing water. They also noticed his abdomen was distended, given this constellation of symptoms patient was brought in ER. Patient does not provide any details and history. 14 point ROS unremarkable except above-mentioned complaints. Vitals: Afebrile, pulse 98, RR 18, blood pressure 120/78, saturating 98% on 2 L nasal cannula On exam : A O X1, cooperative, mild respiratory distress, neck supple, JVD elevated, no lymphadenopathy, mucosa moist, no focal neurological deficit, skin breakdown on right elbow: weeping, skin breakdown on right leg: weeping, severe pitting bilateral edema right more than left, generalized subcutaneous swelling throughout. Stage 2 sacral pressure sore, not infected, no evidence of cellulitis anywhere else CVS: S1-S2, irregular, systolic murmur. RS: Bilateral coarse crackles. Abdomen: Soft, NT, distended, bowel sounds present, abdominal scar. Peripheral pulses perfusion normal. CXR: Persistent large volume right pleural effusion. Mild central vascular prominence but the pulmonary vascular engorgement is less severe than the exam of 03/02/2017. Right lower extremity DVT Doppler: Normal triplex scan without evidence of deep venous thrombosis involving the lower extremity. A and P 87-year-old male with multiple comorbidities and extensive past medical history was sent by visiting nurse to ER for increased leg swelling and crackles on auscultation. Patient was also noticed to have worsening dyspnea on exertion, wheezing C this fluid through hand and leg and distended abdomen. On examination in the ER he has elevated JVD, crackles bilaterally dependent, diffuse subcutaneous edema and weeping superficial skin breakdowns on right upper extremity and lower extremity. Patient appears to be in anasarca secondary to heart failure +/- hypoalbuminemia. Patient is currently oxygen dependent, does not have oxygen at home. Chest x-ray confirms the finding of mild pulmonary vascular congestion, large right pleural effusion. Right lower extremity DVT is ruled out. Patient requires aggressive diuresis, creatinine is at baseline. + Acute on chronic heart failure with preserved with preserved ejection fraction with volume overload: Suspected anasarca + Pleural effusion secondary to heart failure + acute hypoxic respiratory failure secondary to Heart failure + History of Franklin's esophagus, gastritis, history of GI bleed, HTN, A. fib s/ p Pacemaker and AICD : off Xeralto, prostate cancer, CAD, AAA repair, dementia, , CKD, dementia, indwelling Little - Admit to telemetry - Continuous telemetry monitoring - Continue O2 by nasal cannula, titrate, try to wean off - IV Lasix 40 mg twice a day - Strict I's and O's - Daily weights - Serial troponin and EKGs - 2-D echo in a.m. - Cardiology consult in a.m. - DVT prophylaxis - OT PT evaluation - Continue other home medications - Full code
[2017-07-04 23:52] VITALS: BP 120/60
--- NOTE | 2017-07-05 04:03 | Admission Certification ---
Admission Certification Certification Statement - As attending physician, I certify that at the time of - admission, based on clinical presentation, severity of - symptoms, need for further diagnostic testing and - therapeutic interventions, and risk of adverse outcomes - without in-hospital treatment, in my clinical assessment, - this patient requires an acute hospital stay for a minimum - of two nights or longer. I have also considered psychsocial - factors such as support system, advanced age, financial - issues, cognitive issues, and failed out-patient treatments, - past re-admission history, safety of patient, and lack of - compliance as applicable. Specific rationale supporting this admission is: Acute on chronic heart failure with preserved ejection fraction with volume overload
[2017-07-05 06:53] VITALS: BP 120/66
--- NOTE | 2017-07-05 07:16 | PN- Housestaff ---
Debo RECIO,[place] 07/05/17 0716: Subjective Follow-up For: 1 acute decompensation of HFpEF #2 hypertension #3 anemia #4 atrial fibrillation #5 history of prostate cancer #6 hypothyroidism #7 Metabolic alkalosis #8 Pleural effusion Tele-Events Since Last Visit: Sinus bradycardia 6580, QRS 0.16, 9 beats of V. tach Subjective: Patient was seen and examined at bedside, afebrile and he denies any complaints. Little catheter in place, not sure what it was placed exactly, will change it today Review of Systems Constitutional: Reports: see HPI. Objective Last 24 Hrs of Vital Signs/I&O Vital Signs Date Time Temp Pulse Resp B/P B/P Pulse O2 O2 Flow FiO2 Mean Ox Delivery Rate 07/05 0954 Nasal 2.0L Cannula 07/05 0800 100 Nasal 2.0L Cannula 07/05 0653 97.6 78 20 120/66 100 Nasal 2.5L Cannula 07/04 2352 Nasal 2.0L Cannula 07/04 2352 97.6 82 20 120/60 100 Nasal 2.5L Cannula 07/04 2308 97.3 80 20 134/83 95 Nasal 2.0L Cannula 07/04 2058 97.7 75 18 122/67 98 Room Air 07/04 2010 Room Air 07/04 1940 112/58 07/04 1900 96.1 98 18 120/78 Intake & Output 07/05 1600 07/05 0800 07/05 0000 Intake Total 120 Output Total 2000 200 Balance -1880 -200 Intake, Oral 120 Output, Urine 2000 200 Patient 172 lb Weight Weight Bed scale Measurement Method Physical Exam General Appearance: Alert, Cooperative, No Acute Distress HEENT: Atraumatic, PERRLA, EOMI, Mucous Membr. moist/pink Neck: JVD 8 cm Cardiovascular: Normal S1, Normal S2, murmur Lungs: decreased breath sounds on the right lung base Abdomen: Normal Bowel Sounds, Soft Neurological: Normal Speech, Strength at 5/5 X4 Ext, Normal Tone, Sensation Intact Extremities: bilateral 2 + pitting edema, LUE 2 + pitting edema Vascular: Normal Pulses Assessment/Plan Assessment: 87-year-old gentleman with a past history of atrial fibrillationOFF Xeralto dut to GI bleed currently not on any anticoagulation secondary to GI bleed, hypertension, prostate cancer, ? AAA repair hyperlipidemia, coronary artery disease, dementia, CHF, pacemaker in place, indwelling Little placed approximately 1 year ago was brought in for chief concern of elevated blood pressure and pedal edema. His visiting nurse noted that he had bibasilar crackles, and recommended him to go to [place] ER. Pt doesnt report any symptoms at all. (Patient has history of dementia) on admission the patient had elevated BNP 7420, TSH was markedly elevated at 25.3 which is unclear whether the patient was not taking his levothyroxine or dose was not optimal, which might have added to his CHF, CXR shows large Rt pleural effusion which might be due to CHF exacerbation with an element of hypothyroidism Problem list: #1 acute decompensation of HFpEF #2 hypertension #3 anemia #4 atrial fibrillation #5 history of prostate cancer #6 hypothyroidism #7 Metabolic alkalosis #8 Moderatelarge pleural effusion Plan: - Continue iv lasix 40 BID -Continue home dose of finasteride -Continue home dose of levothyroxine 50 mcg daily, will adjust according to Endo recommendation -Close monitoring of ins and outs - 2D Echocardiogram -Patient is scheduled for diagnostic and therapeutic IR guided thoracocentesis -We will follow-up on the results of the pleural tap - Cardiology consult - Serial ekgs and trops to rule out ACS -Endocrinology consult appreciated -Change little after conferring w/ urologist. - Continue finasteride for now. - Iron studies were normal - UA is positive for leukocyte esterase, WBC 1525, no abx for now., Follow-up urine cultures - Confirm the doses of all meds, since the doses are not confirmed on the list. -Follow-up on Doppler ultrasound on left upper extremity to rule out DVT Full code, DVT prophylaxis with subcutaneous heparin CHF diet Problem List: 1. Fluid overload 2. Dementia 3. CHF (congestive heart failure) Pain Ratin Pain Location: N/A Pain Goal: Remain pain free Pain Plan: [facility] Labs & Rationales: cbc sophiep Nishant Stahl 07/05/17 1401: Attending MD Review Statement Attending Statement Attending MD Statement: examined this patient, discuss w/resident/PA/JEWELRY SALES, agreed w/resident/PA/J[employer]EL[employer] SALES, reviewed EMR data (avail), discussed with nursing, discussed with case mgmt Attending Assessment/Plan: Will get IR to tap the rt side plerual effusion. will send for testing the pleural fluid. most likely etiology of his pleural effusion is his Rt side heart failure and the pleural effusion was seen on previous xray in feb but was less .
--- NOTE | 2017-07-05 10:09 | ULTRASOUND REPORT ---
EXAMINATION: US TRIPLEX LOWER EXTREMITY, LEFT CLINICAL INFORMATION: Left lower extremity pain and swelling COMPARISON: None TECHNIQUE: Color-flow triplex imaging with spectral analysis and compression Doppler were performed on the lower extremity. FINDINGS: Respiratory variation, normal compression and augmented flow are noted throughout the lower extremity. The visualized common femoral vein, superficial femoral vein, profunda femoral vein, popliteal vein and midcalf peroneal and posterior tibial venous segments show no evidence of deep venous thrombosis. There is no Rucker's cyst. IMPRESSION: Normal triplex scan without evidence of deep venous thrombosis involving the lower extremity.
--- NOTE | 2017-07-05 14:08 | ULTRASOUND REPORT ---
CLINICAL HISTORY: This patient is a 87-year-old male with large right pleural effusion. The patient is referred to interventional radiology for ultrasound-guided thoracentesis. PROCEDURE: Ultrasound-guided thoracentesis. COMPARISON: None. ACCESS: 6 Fr [id number]-Buvwljey closed needle/catheter system. PROCEDURALIST: Chris Rodriguez D.O.. MEDICATIONS: 10 mL of 1% lidocaine SQ. COMPLICATIONS: None. ESTIMATED BLOOD LOSS: <5 mL. SPECIMENS: None. PROCEDURE NOTE: Appropriate pre-procedure medical history and imaging studies were reviewed. Informed consent was obtained from the patient prior to the procedure. During this process, the procedure and potential alternatives were explained along with the intended outcome and benefits. The risks of the procedure, including the possibility of an unsuccessful procedure, as well as the risk of not doing the procedure, were discussed. The patient was given the opportunity to ask questions regarding the procedure and appeared competent to make decisions. A signed consent form documenting this discussion was placed in the medical record. A time-out procedure was performed. The patient was brought to the ultrasound department and placed in the seated position. Ultrasound images of the right thorax were obtained to localize a large pleural effusion. Images were permanently saved to the record. An area of the patient's right back was prepped and draped in the standard sterile fashion. 10 mL of 1% lidocaine was used to obtain local anesthesia of the skin and deeper tissues. A standard small-bore needle was introduced to sample fluid and demonstrated a safe access route. There was no evidence of traversing adjacent organs or vascular structures. A 6 Fr Feym-R-Soswumkj closed needle/catheter system was utilized for access. 1800 mL of clear maxi-colored fluid was aspirated before drainage ceased. The catheter was removed and a sterile dressing applied. Small to moderate residual pleural effusion was present after thoracentesis. The patient tolerated the procedure well without evidence of immediate complications. FINDINGS: Large simple right pleural effusion. IMPRESSION: Successful right ultrasound-guided therapeutic and diagnostic thoracentesis yielding 1800 mL of clear maxi-colored fluid. PLAN: 1. A postprocedure chest x-ray was ordered and will be dictated separately. 2. The patient was stable after the procedure and transferred to their room with instructions after standard monitoring.
--- NOTE | 2017-07-05 14:11 | ULTRASOUND REPORT ---
EXAMINATION: US TRIPLEX UPPER EXTREMITY, LEFT CLINICAL INFORMATION: 87-year-old male with left upper extremity swelling. COMPARISON: None TECHNIQUE: Grayscale, color and Doppler ultrasound of the deep veins of the left upper extremity were performed. FINDINGS: The left internal jugular, subclavian and axillary veins demonstrate normal color Doppler flow suggesting patency. The left brachial and basilic veins are easily compressible and demonstrate normal color Doppler flow suggesting patency. The left cephalic vein is easily compressible suggesting patency. IMPRESSION: No thrombus identified within the veins of the left upper extremity.
--- NOTE | 2017-07-05 14:27 | RADIOLOGY REPORT ---
EXAMINATION:\H\ \N\XR CHEST CLINICAL INFORMATION: Status post right thoracentesis. COMPARISON: Chest radiograph 07/04/2017 TECHNIQUE: Frontal view of the chest was obtained. FINDINGS: Near complete resolution of the previously seen large right pleural effusion. There is a new, predominantly basilar, right pneumothorax which is likely an ex vacuo pneumothorax. The patient likely has chronic scarring involving the right middle and lower lobes resulting in inability for full reexpansion. The left lung is grossly clear. Stable mild cardiomegaly. Single lead left-sided pacemaker. IMPRESSION: 1. Near complete resolution of the large right pleural effusion. 2. Right basilar pneumothorax, likely an ex vacuo pneumothorax. Patient remained asymptomatic after the procedure and a follow-up chest radiograph in one hour will be obtained.
[2017-07-05 15:21] VITALS: BP 120/58
--- NOTE | 2017-07-05 15:43 | RADIOLOGY REPORT ---
EXAMINATION: XR PORTABLE CHEST CLINICAL INFORMATION: Follow-up right pneumothorax status post thoracentesis. COMPARISON: Multiple prior chest radiographs, most recent 07/05/2017 TECHNIQUE: Portable frontal view of the chest was obtained. FINDINGS: Persistent right-sided pneumothorax which has redistributed in the interim. There is decreased basilar component and increased apical component. Overall, the volume appears similar. Left lung remains clear. Stable cardiomediastinal silhouette. Single lead left-sided pacemaker device. No acute osseous abnormality. IMPRESSION: Overall similar-appearing right-sided pneumothorax status post thoracentesis, consistent with an ex vacuo pneumothorax, related to trapped right lower and middle lobes. Patient remains asymptomatic. A repeat chest radiograph has been ordered for 07/06/2017. Findings were discussed with Dr. Edmondson at 3:40 PM, 07/05/2017.
--- NOTE | 2017-07-05 15:46 | Event Note ---
Event Note Event Note: I was called by radiologist, Dr. Rodriguez and was informed that the patient had successful thoracocentesis with removal of significant amount of pleural fluid from the right side, follow-up x-ray showed right basilar pneumothorax however the patient was asymptomatic after the procedure. Follow-up radiograph would be obtained in 1 hour of the procedure Another follow-up will be obtained tomorrow morning, if the patient to be symptomatic with obtain stat chest x-ray and inform IR and. This results were also discussed with the resident Dr. Da Silva attendant Dr. Stahl
--- NOTE | 2017-07-05 18:46 | Cons- Endocrinology ---
General Information and HPI Consulting Request Date of Consult: 07/05/17 Requested By: medical team Reason for Consult: evaluation and management of hypothyroidism Source of Information: old records Exam Limitations: dementia, poor historian History of Present Illness: 87 yo M pmhx of HTN, A. fib s/p Pacemaker and AICD, prostate cancer, CAD, AAA repair, dementia, CKD, dementia presenting for worsening LE edema. He has had hypothyroidism and was on Levothyroxine 50 mcg daily. On admission, repeat TSH was 25.3, free T4 1.1 and TT3 1.20. In addition, patient was foud to have pleural effuesion and underwent thoracentesis today. Patient has been feeling better. Allergies/Medications Allergies: Coded Allergies: No Known Allergies (04/08/17) Home Med List: Cholecalciferol (Vitamin D3) 1,000 UNIT TABLET 1 TAB PO DAILY SUPPLEMENT ( Reported) Ferrous Sulfate 325 MG (65 MG IRON) TABLET 1 TAB PO TID SUPPLEMENT (Reported) Finasteride 5 MG TABLET 1 TAB PO DAILY prostate (Reported) Furosemide (Lasix) 40 MG TABLET 40 MG PO DAILY DIURESIS Gabapentin 100 MG CAPSULE 1 CAP PO TID NEUROOPATHY (Reported) Levothyroxine Sodium 50 MCG TABLET 1 TAB PO DAILY THYROID (Reported) Omeprazole 20 MG CAPSULE.DR 1 CAP PO DAILY GASTRITIS Ondansetron (Zofran Odt) 4 MG TAB.RAPDIS 1 TAB SL TID PRN nausea Tamsulosin HCl 0.4 MG CAP.ER.24H 1 CAP PO BID (Reported) Review of Systems Review of Systems Constitutional: Reports: see HPI. Cardiovascular: Reports: peripheral edema. Denies: chest pain. Respiratory: Reports: short of breath. GI: Denies: abdominal pain. Hematologic/Endocrine: Denies: polyuria, polydipsia. 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 Surgical History Surgical History: pacemaker Family History Relations & Conditions If Any: BROTHER FH: lung cancer Psychosocial History Services at Home: NONE Smoking Status: Never Smoked ETOH Use: denies use Illicit Drug Use: denies illicit drug use Exam & Diagnostic Data Last 24 Hrs of Vital Signs/I&O Vital Signs Date Time Temp Pulse Resp B/P B/P Pulse O2 O2 Flow FiO2 Mean Ox Delivery Rate 07/05 1600 97 Room Air Room Air 07/05 1521 98.6 89 20 120/58 95 07/05 0954 Nasal 2.0L Cannula 07/05 0800 100 Nasal 2.0L Cannula 07/05 0653 97.6 78 20 120/66 100 Nasal 2.5L Cannula 07/04 2352 Nasal 2.0L Cannula 07/04 235 97.6 82 20 120/60 100 Nasal 2.5L Cannula 07/04 2308 97.3 80 20 134/83 95 Nasal 2.0L Cannula 07/04 2059 97.7 75 18 122/67 98 Room Air 07/04 2010 Room Air 07/04 1940 112/58 07/04 1900 96.1 98 18 120/78 Intake & Output 07/05 1600 07/05 0800 07/05 0000 Intake Total 500 120 Output Total 1200 2000 200 Balance -700 -1880 -200 Intake, Oral 500 120 Output, Urine 1200 2000 200 Patient 172 lb Weight Weight Bed scale Measurement Method Physical Exam General Appearance: no apparent distress Neck: no thyromegaly Respiratory: decreased breath sounds Cardiovascular: irregularly irregular Gastrointestinal: soft Extremities: swelling Labs/Saud Results: Laboratory Tests 07/05 07/05 07/05 07/05 07/05 1755 1345 1345 1345 0615 Chemistry Sodium (137 - 145 mmol/L) 142 Potassium (3.5 - 5.1 mmol/L) 4.0 Chloride (98 - 107 mmol/L) 103 Carbon Dioxide (22 - 30 mmol/L) 32 H Anion Gap (5 - 16) 7 BUN (9 - 20 mg/dL) 25 H Creatinine (0.7 - 1.2 mg/dL) 1.4 H Estimated GFR (>60 ml/min) 48 L BUN/Creatinine Ratio (7 - 25 %) 17.9 Lactate Dehydrogenase Pending Troponin I (<0.11 ng/ml) 0.03 Coagulation PT Pending INR Pending APTT Pending Hematology Lymphocytes (%) 48 % Normal PMNs (%) 10 Misc Hematology Test (%) 42 Miscellaneous Phlebotomy Draw Site RT THORA Other Body Source Fluid WBC (0 - 5 /CUMM) 153 H Fld Total RBCs Counted (0 /CUMM) 1150 H Fluid Glucose (mg/dL) 83 Fluid Total Protein (g/dL) < 2.0 Fluid Albumin (g/dL) < 1.0 Fluid LDH (U/L) 266 Fluid Amylase (U/L) < 30 Pleural pH (PH) 7.44 07/05 07/05 07/04 0615 0205 2256 Chemistry Sodium Cancelled Potassium Cancelled Chloride Cancelled Carbon Dioxide Cancelled Anion Gap Cancelled BUN Cancelled Creatinine Cancelled BUN/Creatinine Ratio Cancelled Troponin I (<0.11 ng/ml) 0.03 Urines Urinalysis PACKD H Urine Color (YEL,AMB,STR) YEL Urine Clarity (CLEAR) CLDY H Urine pH (5.0 - 8.0) 8.5 H Ur Specific Forbes (1.001 - 1.035) 1.010 Urine Protein (NEG,<30 MG/DL) 30 H Urine Ketones (NEG) NEG Urine Nitrite (NEG) NEG Urine Bilirubin (NEG) NEG Urine Urobilinogen (0.1 - 1.0 EU/dl) 1.0 Ur Leukocyte Esterase (NEG) LARGE H Ur Microscopic SEDIMENT EXAMINED Urine WBC (0 - 2 /HPF) 15-25 H Ur Epithelial Cells (NONE,FEW) RARE Urine Crystals 3+ TRIP PHOS H Urine Bacteria (NEG/NONE) MANY H Urine Mucus (FEW,NONE) RARE Urine Hemoglobin (NEG) NEG Urine Glucose (N MG/DL) NEG 07/04 07/04 193 1932 Chemistry Sodium (137 - 145 mmol/L) 138 Potassium (3.5 - 5.1 mmol/L) 4.3 Chloride (98 - 107 mmol/L) 100 Carbon Dioxide (22 - 30 mmol/L) 33 H Anion Gap (5 - 16) 5 BUN (9 - 20 mg/dL) 27 H Creatinine (0.7 - 1.2 mg/dL) 1.4 H Estimated GFR (>60 ml/min) 48 L BUN/Creatinine Ratio (7 - 25 %) 19.3 Glucose (65 - 99 mg/dL) 120 H Calcium (8.4 - 10.2 mg/dL) 7.9 L Iron (49 - 181 ug/dL) 56 TIBC (261 - 462 ug/dL) 278 Ferritin (17.9 - 464 ng/mL) 60.4 Total Bilirubin (0.2 - 1.3 mg/dL) 0.8 AST (17 - 59 U/L) 18 ALT (21 - 72 U/L) 24 Alkaline Phosphatase (< 127 U/L) 156 H Troponin I (<0.11 ng/ml) 0.03 Bbj-P-Zmbbumdbhvx Pept (<125 pg/mL) 7420 H Total Protein (6.3 - 8.2 g/dL) 6.4 Albumin (3.5 - 5.0 g/dL) 2.7 L Globulin (1.9 - 4.2 gm/dL) 3.7 Albumin/Globulin Ratio (1.1 - 2.2 %) 0.7 L Free T4 (0.85 - 1.93 ng/dL) 1.10 Total T3 (0.97 - 1.69 ng/mL) 1.20 TSH &T3 &Free T4 Intrp (0.27 - 4.20 uIU/mL) 25.300 H Coagulation PT (9.4 - 12.5 SEC) 12.0 INR (0.90 - 1.17) 1.10 Hematology CBC w Diff NO MAN DIFF REQ WBC (4.8 - 10.8 /CUMM) 6.4 RBC (4.70 - 6.10 /CUMM) 2.55 L Hgb (14.0 - 18.0 G/DL) 9.2 L Hct (42 - 52 %) 27.2 L MCV (80.0 - 94.0 FL) 106.4 H MCH (27.0 - 31.0 PG) 36.2 H MCHC (33.0 - 37.0 G/DL) 34.0 RDW (11.5 - 14.5 %) 17.1 H Plt Count (130 - 400 /CUMM) 147 MPV (7.4 - 10.4 FL) 8.3 Gran % (42.2 - 75.2 %) 77.0 H Lymphocytes % (20.5 - 51.1 %) 12.7 L Monocytes % (1.7 - 9.3 %) 7.5 Eosinophils % (0 - 5 %) 2.2 Basophils % (0.0 - 2.0 %) 0.6 Absolute Granulocytes (1.4 - 6.5 /CUMM) 4.9 Absolute Lymphocytes (1.2 - 3.4 /CUMM) 0.8 L Absolute Monocytes (0.10 - 0.60 /CUMM) 0.5 Absolute Eosinophils (0.0 - 0.7 /CUMM) 0.1 Absolute Basophils (0.0 - 0.2 /CUMM) 0 Assessment/Plan Assessment/Plan 87 yo M pmhx of HTN, A. fib s/p Pacemaker and AICD, prostate cancer, CAD, AAA repair, dementia, CKD, dementia presenting for worsening LE edema. He has had hypothyroidism and was on Levothyroxine 50 mcg daily. On admission, repeat TSH was 25.3, free T4 1.1 and TT3 1.20. Plan: 1. increase Levothyroxine to 75 mcg daily; 2. repeat TSH and free T4 in 3-4 days to look for a trend. will follow. Consult Acknowledgment - Thank you for your consult request.
[2017-07-05 19:22] LABS: PT 12.3 SEC (9.4-12.5); PTT 33 SEC (25-37)
--- NOTE | 2017-07-05 19:44 | Cons- Cardiology ---
"General Information and HPI Consulting Request Date of Consult: 07/05/17 Requested By: Maribeth RECIO,Nishant Auguste History of Present Illness: Dago is an 87 year old male who carries a history of hypertension and coronary artery disease s/p angioplasty. He also carries history of chronic atrial fibrillation. A couple years ago this patient had a very slow heart rate of 44bpm accompanied by tiredness and mild exertional shortness of breath. He also demonstrated mild renal insufficiency and slowness of thought. As such, a PPM was placed which has resulted in an all around improvement including his renal function, mental status and exercise tolerance. At present this patient is doing well without chest discomfort, shortness of breath, lightheadedness or palpitations. He was observed to be fluid overloaded however and was brought to the ER for further evaluation. He denies shortness of breath but was noted to have leg swelling that was worse on the right. He tends to sleep chronically in a reclining chair. In the ER the patient had crackles in his lungs and was hypertensive. He was noted to have a right sided pleural effusion which underwent thoracentesis and now feels improved. At baseline, according to his he will appear to be working hard to breath when he arises to go to the bathroom. He is now very inactive but can walk a few steps with a walker. Although this patient is on Gabapentin, it is not clear that he has any continuing discomfort. 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 Dr. Garrison did not think that there was any definite contraindication to chronic anticoagulation but he is not anticoabulated at this time. On his prior visit he demonstrated leg edema and was put on Lasix. It may be recalled that he has a chronically swollen left arm after an accident. Jean was last admitted to the hospital for shortness of breath and edema which is improved. A previous pacemaker interogation showed four brief ventricular high rate events. He was also recently put on Alzheimer disease medications although they were stopped due to side effects. 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 This was confirmed by his sweat band sewer and removed. Jean walks at a slow pace primarily due to some severe right knee pain. It should be recalled that prior to his knee acting up he was able to walk on a treadmill for about 15 minutes at a time. He tends to sleep upright consistent with orthopnea. Jean also has bilateral calf discomfort with walking which is a chronic condition. He feels that his leg cramping is more prominent if he lies flat. Approximately two years ago, the patient did experience some lower extremity swelling and heaviness in his chest with exertion, but these symptoms have abated. He also had a prior hospital admission related to dehydration from vomiting and diarrhea and that hospital admission was complicated by renal insufficiency. The above was related to gastroenteritis which has resolved. Prior risk stratification was done via an Adenosine stress test. This procedure was performed in August of 2010 and showed no evidence of Adenosine induced myocardial ischemia although an idioventricular rhythm was noted with an occasional unifocal PVC. In terms of nuclear imaging, his overall EF was normal at 69%. There was borderline transient ischemic dilatation which I thought might have been consistent with subendocardial ischemia or three vessel coronary artery disease. No focal areas of ischemia or infarction were noted. His echocardiogram from August of 2010 showed an overall normal EF of 60% with borderline left ventricular hypertrophy. In terms of cardiac valves, there was moderate to severe tricuspid regurgitation, mild mitral, and trace aortic and pulmonic insufficiency. Moderately increased pulmonary pressures were noted and there was evidence of a dilated right atrium and ventricle. This echocardiogram was essentially unchanged. It should be recalled that this patient was at one time noted to be significantly bradycardic and therefore I opted to discontinue metoprolol. Since that time, the patient was started on a small dose of levothyroxine for hypothyroidism and with this his heart rate picked up a bit. To Review Jean's Past History: I initially saw him in 2004 for severe chest discomfort. A subsequent cardiac catheterization showed a normal left main as well as a 70% stenosis of the LAD at the take-off of the first diagonal branch. circumflex harbored a 50% non-flow limiting proximal stenosis. The right coronary artery was a dominant vessel with a 48-50% mid stenosis. The right coronary artery parented a large marginal branch with a 60% ostial stenosis which was non-flow limiting. In consideration of the above anatomy, I placed a 3.5 x 23 mm Cypher stent in the distal LAD and a second 3.5 x 18 mm stent to cover the two more proximal lesions. Plain balloon angioplasty was performed at the ostium of the diagonal branch which was dilated to 2.5 mm at 20 atmospheres. This resulted in a zero percent residual stenosis with MARAH-III flow. The patient has also undergone abdominal aortic aneurysm repair which went well without any symptoms. He does have some tiredness in his thighs bilaterally when walking but is free of any calf pain. The patient is currently on Coumadin for stroke prophylaxis in the setting of chronic atrial fibrillation, although his current INR is a bit low. He thinks he might have forgotten to take one or two of his Coumadin pills. 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 Allergies/Medications Allergies: Coded Allergies: No Known Allergies (04/08/17) Home Med List: Cholecalciferol (Vitamin D3) 1,000 UNIT TABLET 1 TAB PO DAILY SUPPLEMENT ( Reported) Ferrous Sulfate 325 MG (65 MG IRON) TABLET 1 TAB PO TID SUPPLEMENT (Reported) Finasteride 5 MG TABLET 1 TAB PO DAILY prostate (Reported) Furosemide (Lasix) 40 MG TABLET 40 MG PO DAILY DIURESIS Gabapentin 100 MG CAPSULE 1 CAP PO TID NEUROOPATHY (Reported) Levothyroxine Sodium 50 MCG TABLET 1 TAB PO DAILY THYROID (Reported) Omeprazole 20 MG CAPSULE.DR 1 CAP PO DAILY GASTRITIS Ondansetron (Zofran Odt) 4 MG TAB.RAPDIS 1 TAB SL TID PRN nausea Tamsulosin HCl 0.4 MG CAP.ER.24H 1 CAP PO BID (Reported) Review of Systems Review of Systems: A review of systems is unobtainable. 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 FH: CHOLECYSTECTOMY (V19.8 | Z84.89) HISTORY OF AAA (ABDOMINAL AORTIC ANEURYSM) REPAIR (V45.89 | Z98.89) permanent pacemaker for symptomatic bradycardia BRADYCARDIA (427.89 | R00.1) HTN (HYPERTENSION) (401.9 | I10) EAR LESION (380.89 | H61.899) skin cancer ATRIAL FIBRILLATION (427.31 | I48.91) CAD (CORONARY ARTERY DISEASE) (414.00 | I25.10) Surgical History Surgical History: pacemaker Family History Relations & Conditions If Any: BROTHER FH: lung cancer Psychosocial History Services at Home: NONE Smoking Status: Never Smoked ETOH Use: denies use Illicit Drug Use: denies illicit drug use Exam & Diagnostic Data Vital Signs and I&O Vital Signs Date Time Temp Pulse Resp B/P B/P Pulse O2 O2 Flow FiO2 Mean Ox Delivery Rate 07/05 1600 97 Room Air Room Air 07/05 1521 98.6 89 20 120/58 95 07/05 0954 Nasal 2.0L Cannula 07/05 0800 100 Nasal 2.0L Cannula 07/05 0653 97.6 78 20 120/66 100 Nasal 2.5L Cannula 07/04 2352 Nasal 2.0L Cannula 07/04 2352 97.6 82 20 120/60 100 Nasal 2.5L Cannula 07/04 2308 97.3 80 20 134/83 95 Nasal 2.0L Cannula 07/049 97.7 75 18 122/67 98 Room Air 07/04 2010 Room Air 07/04 1940 112/58 Intake & Output 07/05 1600 07/05 0800 07/05 0000 07/04 1600 07/04 0800 07/04 0000 Intake Total 500 120 Output Total 1200 2000 200 Balance -700 -1880 -200 Intake, Oral 500 120 Output, Urine 1200 2000 200 Patient 172 lb Weight Weight Bed scale Measurement Method Physical Exam: General: WD/WN male in NAD; awake and responsive with decreased memory HEENT: NC/AT, PERRL, EOMI Neck: positive JVD, bilateral carotid bruits L>R Heart: RRR with 2/6 systolic murmur at the RUSB and apex and 2/6 left subclavian bruit Lungs: clear bilaterally Abdomen: soft, NT, +ve bowel sounds Extremities: 1+ bilateral leg edema Assessment/Plan Assessment/Plan * This patient is doing much better after thoracentesis although, truthfully, he does not remember being symptomatic in any way and does not know why he is in the hospital. It should be recalled that in the past this patient had right ventricular volume overload with severely dilated right ventricle and an echo showing severe tricuspid regurgitaiton. His lower extremity edema is now minimal and I see no evidence of significant cor pulmonale at this time although he clearly has increased RV pressures manifesting as JVD. It should be noted that Gabepentin can also contribute to fluid retention. Continue Lasix at 20mg daily. * The patient's heart rate is well controlled. He was on Xarelto for stroke prophylaxis but this was stopped due to GI bleeding. He follows up with Dr. Garrison for his GI issues. * This patient has significant CAD which we are trying to treat medically. At his current level of activity there is no clinical evidence of myocardial ischemia. He is walking on a treadmill for a couple minutes at a time without problems. A previous stress test was consistent with subendocardial ischemia or 3 vessel CAD. 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 He has noted some weight loss. * This patient now has a permanent pacemaker with MRI safe leads. He is much improved and is 100% paced. He did demonstrate four brief ventricular high rate events. We will continue to monitor this. Consult Acknowledgment - Thank you for your consult request."
[2017-07-05 21:57] VITALS: BP 110/70
[2017-07-06 07:07] VITALS: BP 90/60
--- NOTE | 2017-07-06 07:09 | PN- Housestaff ---
Debo RECIO,Nohelia 07/06/17 0709: Subjective Follow-up For: 1 acute decompensation of HFpEF #2 hypertension #3 anemia #4 atrial fibrillation #5 history of prostate cancer #6 hypothyroidism #7 Metabolic alkalosis #8 Pleural effusion Tele-Events Since Last Visit: Sinus pacing, 6275, QRS 0.16, no overnight events Subjective: Patient was seen and examined at bedside, he denies any complaints, no active events overnight, he was noticed to have significant output with fluid balance - 3460, most likely due to thoracocentesis yesterday of 1.8 L. Blood pressure was running low this morning 90/60 Review of Systems Constitutional: Reports: see HPI. Objective Last 24 Hrs of Vital Signs/I&O Vital Signs Date Time Temp Pulse Resp B/P B/P Pulse O2 O2 Flow FiO2 Mean Ox Delivery Rate 07/06 0800 93 Room Air 07/06 0733 81 108/64 07/06 0707 98.3 71 20 90/60 93 Room Air 07/06 0000 96 Room Air 07/05 2157 98.0 72 20 110/70 90 07/05 1600 97 Room Air Room Air 07/05 1521 98.6 89 20 120/58 95 Intake & Output 07/06 1600 07/06 0800 07/06 0000 Intake Total 200 120 Output Total 350 1000 Balance -150 -880 Intake, Oral 200 120 Number 1 Bowel Movements Output, Urine 350 1000 Patient 163 lb Weight Physical Exam General Appearance: Alert, Cooperative, No Acute Distress HEENT: Atraumatic, PERRLA, EOMI, Mucous Membr. moist/pink Neck: Supple, JVD Cardiovascular: Normal S1, Normal S2, No Murmurs Lungs: Clear to Auscultation Abdomen: Normal Bowel Sounds, Soft, No Tenderness Neurological: Normal Speech, Strength at 5/5 X4 Ext, Normal Tone, Sensation Intact Extremities: 2 + pitting edema in LE AND UE Vascular: Normal Pulses Assessment/Plan Assessment: 87-year-old gentleman with a past history of atrial fibrillationOFF Xeralto dut to GI bleed currently not on any anticoagulation secondary to GI bleed, hypertension, prostate cancer, ? AAA repair hyperlipidemia, coronary artery disease, dementia, CHF, pacemaker in place, indwelling Cortes placed approximately 1 year ago was brought in for chief concern of elevated blood pressure and pedal edema. His visiting nurse noted that he had bibasilar crackles, and recommended him to go to [place] [facility]. Pt doesnt report any symptoms at all. (Patient has history of dementia) on admission the patient had elevated BNP 7420, TSH was markedly elevated at 25.3 which is unclear whether the patient was not taking his levothyroxine or dose was not optimal, which might have added to his CHF, CXR shows large Rt pleural effusion which might be due to CHF exacerbation with an element of hypothyroidism Problem list: #1 acute decompensation of HFpEF #2 hypertension #3 anemia #4 atrial fibrillation #5 history of prostate cancer #6 hypothyroidism #7 Metabolic alkalosis #8 Moderatelarge pleural effusion #9 VIRGILIO on CKD (creatinine worsened today to 1.6) Pleural tap yesterday showed RBCs 1156, WBC 153, protein less than 2, albumin less than 1, glucose 83, LDH 266 (0.64% of the serum LDH) patient of exudative pleural effusion, Plan: Continue to monitor on telemetry -Change Lasix to 40 mg daily IV -Continue home dose of finasteride -Increase levothyroxine to 75 mcg daily before meals -Close monitoring of ins and outs - 2D Echocardiogram -We will follow-up on the results of the pleural tap - Cardiology recommendation appreciated -Serial troponins and EKG ruled out ACS - Continue finasteride for now. - Iron studies were normal - UA is positive for leukocyte esterase, WBC 1525, no abx for now., -Urine culture showed features of contamination, will send another sample for culture -Cortes catheter was changed yesterday -Strict I's and O's, daily weights -Vitals every shift -Close monitoring of kidney function Full code, DVT prophylaxis with subcutaneous heparin CHF diet Problem List: 1. Pleural effusion 2. CHF (congestive heart failure) Pain Ratin Pain Location: N/A Pain Goal: Remain pain free Pain Plan: PATHWAY Tomorrow's Labs & Rationales: CBC BEP DVT/Prophylaxis: mechanical, pharmacological Nishant Stahl 07/06/17 1323: Attending MD Review Statement Attending Statement Attending MD Statement: examined this patient, discuss w/resident/PA/RENEWALS REPRESENTATIVE, agreed w/resident/PA/RENEWALS REPRESENTATIVE, discussed with family, reviewed EMR data (avail), discussed with nursing, discussed with case mgmt Attending Assessment/Plan: jorge family at bedside the care plan. Pt had thoracentesis yesterday and removed 1.8 L fluid from rt side. Pt on lasix 40mg iv q12h and will decrease to 40mg iv qd due to worsening creatinine. Will f/u on pl fluid cytology. Pt had a complication from the procedure - small pneumo. Repeat CXR done shows - "No significant change in small right-sided pneumothorax and in the collapsed right middle lobe and partially collapsed right lower lobe. There is likely increasing consolidation in the right lower lobe." Will repeat cxr in am and d/w pt the care plan based on repeat cxr.
[2017-07-06 07:33] VITALS: BP 108/64
[2017-07-06 08:12] LABS: ABSOLUTE BASOPHIL COUNT 0 /CUMM (0.0-0.2); ABSOLUTE EOSINOPHIL COUNT 0.1 /CUMM (0.0-0.7); ABSOLUTE GRANULOCYTE CT 2.9 /CUMM (1.4-6.5); ABSOLUTE LYMPH COUNT 0.9 /CUMM (1.2-3.4); ABSOLUTE MONOCYTE COUNT 0.5 /CUMM (0.10-0.60); BASOPHIL % 0.9 % (0.0-2.0); EOSINOPHIL % 2.5 % (0-5); MEAN PLATELET VOLUME 8.6 FL (7.4-10.4); RBC DISTRIBUTION WIDTH 16.7 % (11.5-14.5); WHITE BLOOD CELL COUNT 4.5 /CUMM (4.8-10.8)
[2017-07-06 09:17] LABS: HEMATOCRIT 25.5 % (42-52); MEAN CORPUSCULAR HGB 33.2 PG (27.0-31.0); MEAN CORPUSCULAR HGB CONC 32.8 G/DL (33.0-37.0); MEAN CORPUSCULAR VOLUME 101.2 FL (80.0-94.0); RED BLOOD CELL CT 2.52 /CUMM (4.70-6.10)
[2017-07-06 09:18] LABS: GRANULOCYTE % 65.2 % (42.2-75.2); PLATELET COUNT 132 /CUMM (130-400)
--- NOTE | 2017-07-06 12:41 | RADIOLOGY REPORT ---
EXAMINATION:\H\ \N\XR CHEST CLINICAL INFORMATION: Status post right-sided thoracentesis on 313. Follow-up on right ex vacuo pneumothorax. COMPARISON: Multiple prior chest x-rays, most recent of which is dated 07/05/2017. TECHNIQUE: Frontal view of the chest was obtained. FINDINGS: Left pectoral pacer generator box with lead in the right ventricle is unchanged. The cardiomediastinal silhouette is borderline enlarged. There is a persistent small right-sided pneumothorax seen with complete collapse of the right middle lobe and partial collapse of the right lower lobe. Compared to the prior exam, the size of the pneumothorax is similar to the previous exam. There is now a small volume of right-sided pleural effusion accumulating in the right lung base, new from the most recent prior exam. There is increasing opacity in the right lower lobe compared to the prior exam. Diffuse increased reticular opacities are seen in the right upper lobe and in the perihilar left lung and left lower lobe, similar to the previous exam. There may be a trace left-sided pleural effusion. Bony structures are unremarkable. IMPRESSION: 1. No significant change in small right-sided pneumothorax and in the collapsed right middle lobe and partially collapsed right lower lobe. There is likely increasing consolidation in the right lower lobe. 2. Interval reaccumulation of small volume of pleural fluid in the right lung base. Trace left-sided pleural effusion is also seen. 3. Diffuse bilateral lung parenchymal opacities in the right upper lobe and in the left mid and lower lung are again noted, unchanged.
[2017-07-06 15:41] VITALS: BP 100/56
--- NOTE | 2017-07-06 17:53 | ECHOCARDIOGRAM REPORT ---
XENA FLORES Age: 87 : 1930 Gender: M Exam Date: 07/05/2017 16:55 Exam Location: 1 [address] Ht (in): 70 Wt (lb): 172 BSA: 1.97 BP: 120 / 66 Ordering Physician: David Crespo MD Referring Physician: Toni Bingham MD, PhD Technologist: Pita Zabala [facility] Room Number: [id number] Indications: HEART FAILURE Rhythm: Atrial fibrillation Technical Quality: Fair FINDINGS Left Ventricle Normal size left ventricle. Mild concentric left ventricular hypertrophy. Abnormal septal motion consistent with an intraventricular conduction defect. No other obvious regional wall motion abnormalities. Normal left ventricular ejection fraction visually estimated at 55%. Right Ventricle Right ventricle at upper limits of normal. Catheter/pacemaker wire in the right ventricular cavity. Right Atrium Severe right atrial dilatation. Catheter/pacemaker wire in the right atrial cavity. Left Atrium Mild left atrial dilatation. Mitral Valve Mild mitral annular calcification. Mitral valve mildly thickened. Trace mitral regurgitation. Aortic Valve Trileaflet aortic valve. Mild aortic sclerosis. No aortic valve stenosis. Trace aortic regurgitation. Tricuspid Valve Structurally normal tricuspid valve. Severe tricuspid regurgitation. No evidence of pulmonary hypertension. Right ventricular systolic pressure estimated to be within the normal range at 17 mmHg. Pulmonic Valve Pulmonic valve not well visualized, grossly normal. No pulmonic regurgitation. Pericardium No pericardial effusion. Left pleural effusion. Great Vessels Normal size aortic root. Markedly dilated inferior vena cava. CONCLUSIONS Normal size left ventricle. Mild concentric left ventricular hypertrophy. Abnormal septal motion consistent with an intraventricular conduction defect. No other obvious regional wall motion abnormalities. Normal left ventricular ejection fraction visually estimated at 55%. Right ventricle at upper limits of normal. Severe right atrial dilatation. Pacemaker wire in the right heart. Mild left atrial dilatation. Trace mitral regurgitation. Trace aortic regurgitation. Severe tricuspid regurgitation. No evidence of pulmonary hypertension. Left pleural effusion. Markedly dilated inferior vena cava. Tarun Field M.D. (Electronically Signed) Final Date: 06 July 2017 17:52 MEASUREMENTS (Male / Female) Normal Values 2D ECHO LV Diastolic Diameter PLAX 3.8 cm 4.2 - 5.9 / 3.9 - 5.3 cm LV Systolic Diameter PLAX 2.7 cm 2.1 - 4.0 cm LV Fractional Shortening PLAX 28.9 % 25 - 46 % LV Ejection Fraction 2D Teich 56.4 % IVS Diastolic Thickness 1.2 cm LVPW Diastolic Thickness 1.2 cm LV Relative Wall Thickness 0.6 RV Internal Dim ED PLAX 3.6 cm 1.9 - 3.8 cm LVOT Diameter 2.1 cm Aortic Root Diameter 3.3 cm LA Systolic Diameter LX 4.3 cm 3.0 - 4.0 / 2.7 - 3.8 cm Ascending Aorta Diameter 2.9 cm DOPPLER AV Peak Velocity 108.0 cm/s AV Peak Gradient 4.7 mmHg AV Mean Velocity 73.8 cm/s AV Mean Gradient 3.0 mmHg AV Velocity Time Integral 19.3 cm LVOT Peak Velocity 68.9 cm/s LVOT Peak Gradient 1.9 mmHg LVOT Mean Velocity 48.6 cm/s LVOT Mean Gradient 1.0 mmHg LVOT Velocity Time Integral 12.9 cm LVOT Stroke Volume 44.7 cm AV Area Cont Eq vti 2.3 cm AV Area Cont Eq pk 2.2 cm MV Peak Velocity 107.0 cm/s MV Peak Gradient 4.6 mmHg MV Mean Velocity 60.1 cm/s MV Mean Gradient 2.0 mmHg Mitral E Point Velocity 82.4 cm/s MV PHT Velocity 111.0 cm/s MV Deceleration [place] 409.0 cm/s MV Pressure Half Time 81.4 ms MV Area PHT 2.7 cm MV Deceleration Time 187.0 ms TR Peak Velocity 174.0 cm/s TR Peak Gradient 12.1 mmHg Right Atrial Pressure 5.0 mmHg Pulmonary Artery Systolic Pressu 17.1 mmHg Right Ventricular Systolic Press 17.1 mmHg PV Peak Velocity 72.7 cm/s PV Peak Gradient 2.1 mmHg PV Mean Velocity 48.8 cm/s PV Mean Gradient 1.0 mmHg PV Velocity Time Integral 15.1 cm LV E' Lateral Velocity 10.6 cm/s Mitral E to LV E' Lateral Ratio 7.8 LV E' Septal Velocity 8.6 cm/s Mitral E to LV E' Septal Ratio 9.6
--- NOTE | 2017-07-06 21:32 | PN- Cardiology ---
Subjective Subjective: * No complaints. * creatinine 1.6 * status post thoracentisis Objective Vital Signs and I&Os Vital Signs Date Time Temp Pulse Resp B/P B/P Pulse O2 O2 Flow FiO2 Mean Ox Delivery Rate 07/06 1600 93 Room Air 07/06 1541 98.5 75 18 100/56 93 Room Air 07/06 0800 93 Room Air 07/06 0733 81 108/64 07/06 0707 98.3 71 20 90/60 93 Room Air 07/06 0000 96 Room Air 07/05 2157 98.0 72 20 110/70 90 Intake & Output 07/06 1600 07/06 0800 07/06 0000 07/05 1600 07/05 0800 07/05 0000 Intake Total 440 200 120 500 120 Output Total 785 789 7562 1200 2000 200 Balance -410 -150 -880 -700 -1880 -200 Intake, Oral 440 200 120 500 120 Number 0 1 Bowel Movements Output, Urine 980 258 1776 1200 2000 200 Patient 163 lb 172 lb Weight Weight Bed scale Measurement Method Physical Exam: General: WD/WN male in NAD; awake and responsive with decreased memory HEENT: NC/AT, PERRL, EOMI Neck: positive JVD, bilateral carotid bruits L>R Heart: RRR with 2/6 systolic murmur at the RUSB and apex and 2/6 left subclavian bruit Lungs: clear bilaterally Abdomen: soft, NT, +ve bowel sounds Extremities: no leg edema Assessment/Plan Assessment/Plan * Change to oral Lasix since creatinine is now increasing. Continue telemetry? Yes
[2017-07-06 22:59] VITALS: BP 118/74
[2017-07-07 06:55] VITALS: BP 100/54
[2017-07-07 08:11] LABS: ABSOLUTE BASOPHIL COUNT 0 /CUMM (0.0-0.2); ABSOLUTE EOSINOPHIL COUNT 0.1 /CUMM (0.0-0.7); ABSOLUTE GRANULOCYTE CT 3.4 /CUMM (1.4-6.5); ABSOLUTE LYMPH COUNT 0.9 /CUMM (1.2-3.4); ABSOLUTE MONOCYTE COUNT 0.5 /CUMM (0.10-0.60); BASOPHIL % 0.7 % (0.0-2.0); MEAN PLATELET VOLUME 8.7 FL (7.4-10.4); RBC DISTRIBUTION WIDTH 16.7 % (11.5-14.5)
--- NOTE | 2017-07-07 08:12 | PN- Housestaff ---
Debo RECIO,Nohelia 07/07/17 0812: Subjective Follow-up For: 1 acute decompensation of HFpEF #2 hypertension #3 anemia #4 atrial fibrillation #5 history of prostate cancer #6 hypothyroidism #7 Metabolic alkalosis #8 Pleural effusion Tele-Events Since Last Visit: SP 62-76, QRS 0.16 Subjective: Pt was seen and examined at bedside, afebrils, denies any complains, Cortes catheter in place, diuresing on Lasix with fluid balance -330 Review of Systems Constitutional: Denies: no symptoms. Cardiovascular: Denies: see HPI. Objective Last 24 Hrs of Vital Signs/I&O Vital Signs Date Time Temp Pulse Resp B/P B/P Pulse O2 O2 Flow FiO2 Mean Ox Delivery Rate 07/07 0655 97.7 65 63 100/54 92 Room Air 07/07 0000 Room Air 07/06 2259 97.2 74 22 118/74 91 07/06 1600 93 Room Air 07/06 1541 98.5 75 18 100/56 93 Room Air Intake & Output 07/07 1600 07/07 0800 07/07 0000 Intake Total 120 320 Output Total 450 225 Balance -330 95 Intake, Oral 120 320 Output, Urine 450 225 Patient 166 lb Weight Weight Bed scale Measurement Method Physical Exam General Appearance: Alert, Cooperative, No Acute Distress HEENT: Atraumatic, PERRLA, EOMI, Mucous Membr. moist/pink Neck: Supple, No JVD Cardiovascular: Normal S1, Normal S2, No Murmurs Lungs: Clear to Auscultation Abdomen: Normal Bowel Sounds, Soft Neurological: Normal Speech, Strength at 5/5 X4 Ext, Normal Tone, Sensation Intact, Cranial Nerves 3-12 NL Extremities: 2+ pitting edema in both UE and LE Vascular: Normal Pulses Assessment/Plan Assessment: 87-year-old gentleman with a past history of atrial fibrillationOFF Xeralto dut to GI bleed currently not on any anticoagulation secondary to GI bleed, hypertension, prostate cancer, ? AAA repair hyperlipidemia, coronary artery disease, dementia, CHF, pacemaker in place, indwelling Cortes placed approximately 1 year ago was brought in for chief concern of elevated blood pressure and pedal edema. His visiting nurse noted that he had bibasilar crackles, and recommended him to go to [place] [facility]. Pt doesnt report any symptoms at all. (Patient has history of dementia) on admission the patient had elevated BNP 7420, TSH was markedly elevated at 25.3 which is unclear whether the patient was not taking his levothyroxine or dose was not optimal, which might have added to his CHF, CXR shows large Rt pleural effusion which might be due to CHF exacerbation with an element of hypothyroidism Problem list: #1 acute decompensation of HFpEF #2 hypertension #3 anemia #4 atrial fibrillation #5 history of prostate cancer #6 hypothyroidism #7 Metabolic alkalosis #8 Moderatelarge pleural effusion #9 VIRGILIO on CKD (creatinine worsened today to 1.6) Pleural tap yesterday showed RBCs 1156, WBC 153, protein less than 2, albumin less than 1, glucose 83, LDH 266 (0.64% of the serum LDH) patient of exudative pleural effusion, Plan: -Continue to monitor on telemetry -Switch Lasix to 40 mg p.o. daily -Continue home dose of finasteride - continue levothyroxine to 75 mcg daily before meals -Close monitoring of ins and outs - 2D Echocardiogram -Initial culture and sensitivity of pleural tap were negative -Follow-up on pathology results of pleural tap - Cardiology recommendation appreciated -Continue to follow off antibiotics pending urine culture results sent on 07/06 -Strict I's and O's, daily weights -Vitals every shift -Close monitoring of kidney function (creatinine was noticed to be arising, Lasix dose was decreased and Lasix was switched to p.o. daily) Full code, DVT prophylaxis with subcutaneous heparin CHF diet Problem List: 1. CHF (congestive heart failure) 2. Pleural effusion Pain Ratin Pain Location: N/A Pain Goal: Remain pain free Pain Plan: PATHWAY Tomorrow's Labs & Rationales: CBC BEP DVT/Prophylaxis: mechanical, pharmacological Nishant Stahl 07/07/17 1421: Attending MD Review Statement Attending Statement Attending MD Statement: examined this patient, discuss w/resident/PA/BRICK DROPPER, agreed w/resident/PA/BRICK DROPPER, discussed with family, reviewed EMR data (avail), discussed with nursing, discussed with case mgmt Attending Assessment/Plan: Repeat cxr shows - "persistent small right-sided pneumothorax with persistent complete collapse of the right middle lobe and partial collapse of the right lower lobe, unchanged when compared to the prior exam. " will get CT surgery to see the pt to see if any thing needs to be done. Pleural effusion small rt side on repeat cxr. Will f/u on pleural fluid cytology d/w pt and family the care plan.
[2017-07-07 09:06] LABS: HEMATOCRIT 25.6 % (42-52); MEAN CORPUSCULAR HGB 33.3 PG (27.0-31.0); MEAN CORPUSCULAR HGB CONC 32.6 G/DL (33.0-37.0); MEAN CORPUSCULAR VOLUME 102.3 FL (80.0-94.0)
[2017-07-07 09:07] LABS: GRANULOCYTE % 68.5 % (42.2-75.2); PLATELET COUNT 131 /CUMM (130-400)
--- NOTE | 2017-07-07 14:01 | RADIOLOGY REPORT ---
EXAMINATION: XR CHEST CLINICAL INFORMATION: Asymptomatic for follow-up. Presumptive diagnosis of pneumothorax after thoracentesis. COMPARISON: Chest x-ray dated 07/06/2017. TECHNIQUE: AP semierect and lateral views of the chest were obtained. FINDINGS: A single lead pacer is again seen in the right ventricle, unchanged. Cardiomediastinal silhouette is enlarged, unchanged. Calcification of the aortic arch is seen. There is a persistent small right-sided pneumothorax with persistent complete collapse of the right middle lobe and partial collapse of the right lower lobe, unchanged when compared to the prior exam. Small right-sided pleural effusion is also seen, similar to the previous exam. Left lung remains fully expanded and shows no pneumothorax or significant effusion. Patchy reticular opacities in the right upper lobe are stable. Bony structures are unremarkable. IMPRESSION: 1. No significant change in right-sided hydropneumothorax and trapped right middle lobe and right lower lobe. 2. No significant change in reticular opacities in the right upper lobe.
[2017-07-07 16:10] VITALS: BP 104/62
[2017-07-07 22:12] VITALS: BP 110/56
[2017-07-08 07:51] VITALS: BP 108/58
[2017-07-08 08:17] LABS: ABSOLUTE EOSINOPHIL COUNT 0.1 /CUMM (0.0-0.7); ABSOLUTE MONOCYTE COUNT 0.6 /CUMM (0.10-0.60); MEAN PLATELET VOLUME 8.7 FL (7.4-10.4); PLATELET COUNT 142 /CUMM (130-400); RBC DISTRIBUTION WIDTH 17.4 % (11.5-14.5)
[2017-07-08 10:08] LABS: WHITE BLOOD CELL COUNT 5.4 /CUMM (4.8-10.8)
[2017-07-08 10:09] LABS: HEMATOCRIT 27.4 % (42-52); MEAN CORPUSCULAR HGB 33.1 PG (27.0-31.0); MEAN CORPUSCULAR HGB CONC 32.3 G/DL (33.0-37.0); RED BLOOD CELL CT 2.67 /CUMM (4.70-6.10)
[2017-07-08 10:10] LABS: ABSOLUTE BASOPHIL COUNT 0.1 /CUMM (0.0-0.2); ABSOLUTE GRANULOCYTE CT 3.7 /CUMM (1.4-6.5); EOSINOPHIL % 2.4 % (0-5); GRANULOCYTE % 68.3 % (42.2-75.2)
--- NOTE | 2017-07-08 10:36 | PN- Housestaff ---
Debo RECIO,Nohelia 07/08/17 1036: Subjective Follow-up For: 1 acute decompensation of HFpEF #2 hypertension #3 anemia #4 atrial fibrillation #5 history of prostate cancer #6 hypothyroidism #7 Metabolic alkalosis #8 Pleural effusion #9 Pneumothorax Tele-Events Since Last Visit: Sinus pacing, 6386, QRS 0.14, 0.1, 10 beats of V. tach Subjective: Patient was seen and examined at bedside, denies any complaints, was noticed to be choking while eating, he failed his MBS, was started on pure with nectar thick liquids. His creatinine was rising today, Lasix was held Review of Systems Constitutional: Denies: no symptoms. Objective Last 24 Hrs of Vital Signs/I&O Vital Signs Date Time Temp Pulse Resp B/P B/P Pulse O2 O2 Flow FiO2 Mean Ox Delivery Rate 07/08 1439 97.8 64 18 110/62 94 Room Air 07/08 1127 112/60 07/08 0751 97.9 65 18 108/58 94 Room Air 07/08 0000 Room Air 07/07 2212 97.2 73 18 110/56 92 Room Air 07/07 1610 98.1 79 20 104/62 95 Room Air Intake & Output 07/08 1600 07/08 0800 07/08 0000 Intake Total 400 120 120 Output Total 400 600 Balance 400 -280 -480 Intake, Oral 400 120 120 Number 1 1 1 Bowel Movements Output, Stool Output, Urine 400 600 Patient 165 lb Weight Physical Exam General Appearance: Alert, Cooperative, No Acute Distress HEENT: Atraumatic, PERRLA, EOMI, Mucous Membr. moist/pink Neck: Supple, No JVD Cardiovascular: Normal S1, Normal S2 Lungs: Clear to Auscultation Abdomen: Normal Bowel Sounds, Soft, No Tenderness Neurological: Normal Speech, Strength at 5/5 X4 Ext, Normal Tone, Sensation Intact Extremities: No Clubbing, No Cyanosis, No Edema Assessment/Plan Assessment: 87-year-old gentleman with a past history of atrial fibrillationOFF Xeralto dut to GI bleed currently not on any anticoagulation secondary to GI bleed, hypertension, prostate cancer, ? AAA repair hyperlipidemia, coronary artery disease, dementia, CHF, pacemaker in place, indwelling Little placed approximately 1 year ago was brought in for chief concern of elevated blood pressure and pedal edema. His visiting nurse noted that he had bibasilar crackles, and recommended him to go to [place] [facility]. Pt doesnt report any symptoms at all. (Patient has history of dementia) on admission the patient had elevated BNP 7420, TSH was markedly elevated at 25.3 which is unclear whether the patient was not taking his levothyroxine or dose was not optimal, which might have added to his CHF, CXR shows large Rt pleural effusion which might be due to CHF exacerbation with an element of hypothyroidism Problem list: #1 acute decompensation of HFpEF #2 hypertension #3 anemia #4 atrial fibrillation #5 history of prostate cancer #6 hypothyroidism #7 Metabolic alkalosis #8 Moderatelarge pleural effusion #9 VIRGILIO on CKD (creatinine worsened today to 1.6) Pleural fluid were negative for malignant cells Plan: -Continue to monitor on telemetry -Hold Lasix to 40 mg p.o. daily for worsening kidney function -Continue home dose of finasteride -Start home dose of Flomax - continue levothyroxine to 75 mcg daily before meals -Patient failed MBS, speech recommended pure with nectar thick -Close monitoring of ins and outs - 2D Echocardiogram -Initial culture and sensitivity of pleural tap were negative - Cardiology recommendation appreciated -Continue to follow off antibiotics pending urine culture results sent on 07/06 -Strict I's and O's, daily weights -Vitals every shift -Follow-up on chest x-ray in the morning for evaluation of the progression of pneumothorax -Close monitoring of kidney function (creatinine was noticed to be arising, Lasix dose was decreased and Lasix was switched to p.o. daily) Full code, DVT prophylaxis with subcutaneous heparin CHF diet, pured with nectar thick Problem List: 1. Pleural effusion 2. Fluid overload 3. Dementia 4. Atrial fibrillation with normal ventricular rate 5. CHF (congestive heart failure) Pain Ratin Pain Location: N/A Pain Goal: Remain pain free Pain Plan: Pathway Tomorrow's Labs & Rationales: cbc Nishant Eduardo 07/08/17 1428: Attending MD Review Statement Attending Statement Attending MD Statement: examined this patient, discuss w/resident/PA/PARTY PLAN DEMONSTRATOR, agreed w/resident/PA/PARTY PLAN DEMONSTRATOR, reviewed EMR data (avail), discussed with nursing, discussed with case mgmt Attending Assessment/Plan: Pt seen and examined at bedside. Pneumothorax smalll rt side post thoracentesis with removal of 1.[address] surgery input. Rt side plerual effusion- cytology neg for malignancy. Will repeat cxr in am. VIRGILIO on CKD- cr up to 1.8 today. baseline around 1.4, will hold lasix for now and resume if cr improving. BPH with chronic little for the last 3mnths. WIll cont with finasteride. Restart flomax. U Cx grwoing GNR but pt afebrile and normal wbc. will not treat it. May be colonizing due to little cath.
--- NOTE | 2017-07-08 12:16 | PN- Endocrinology ---
Assessment/Plan Endoscopy Assessment: 87 yo M pmhx of HTN, A. fib s/p Pacemaker and AICD, prostate cancer, CAD, AAA repair, dementia, CKD, dementia presenting for worsening LE edema. He has had hypothyroidism and was on Levothyroxine 50 mcg daily. On admission, repeat TSH was 25.3, free T4 1.1 and TT3 1.20. Levothyroxine was increased to 75 mcg daily on 07/05/2017. Repeat TFT on 07/08/2017-- TSH 18.9 and free t4 1.29. Plan: continue Levothyroxine 75 mcg daily for nowl; repeat TFT in 4-6 weeks; f/u in office after discharge. Subjective Subjective: He feels better. Objective Last 24 Hrs of Vital Signs/I&O Vital Signs Date Time Temp Pulse Resp B/P B/P Pulse O2 O2 Flow FiO2 Mean Ox Delivery Rate 07/08 1127 112/60 07/08 0751 97.9 65 18 108/58 94 Room Air 07/08 0000 Room Air 07/07 2212 97.2 73 18 110/56 92 Room Air 07/07 1610 98.1 79 20 104/62 95 Room Air Intake & Output 07/08 1600 07/08 0800 07/08 0000 Intake Total 120 120 Output Total 400 600 Balance -280 -480 Intake, Oral 120 120 Number 1 1 Bowel Movements Output, Stool Output, Urine 400 600 Patient 165 lb Weight Results Pertinent Lab/Saud Results: Laboratory Tests 07/08 0637 Chemistry Sodium (137 - 145 mmol/L) 137 Potassium (3.5 - 5.1 mmol/L) 4.1 Chloride (98 - 107 mmol/L) 96 L Carbon Dioxide (22 - 30 mmol/L) 34 H Anion Gap (5 - 16) 7 BUN (9 - 20 mg/dL) 32 H Creatinine (0.7 - 1.2 mg/dL) 1.8 H Estimated GFR (>60 ml/min) 36 L BUN/Creatinine Ratio (7 - 25 %) 17.8 Phosphorus (2.5 - 4.5 mg/dL) 3.6 Magnesium (1.6 - 2.3 mg/dL) 2.0 TSH (0.270 - 4.200 uIU/mL) 18.900 H Free T4 (0.85 - 1.93 ng/dL) 1.29 Hematology CBC w Diff NO MAN DIFF REQ WBC (4.8 - 10.8 /CUMM) 5.4 RBC (4.70 - 6.10 /CUMM) 2.67 L Hgb (14.0 - 18.0 G/DL) 8.8 L Hct (42 - 52 %) 27.4 L MCV (80.0 - 94.0 FL) 102.0 H MCH (27.0 - 31.0 PG) 33.1 H MCHC (33.0 - 37.0 G/DL) 32.3 L RDW (11.5 - 14.5 %) 17.4 H Plt Count (130 - 400 /CUMM) 142 MPV (7.4 - 10.4 FL) 8.7 Gran % (42.2 - 75.2 %) 68.3 Lymphocytes % (20.5 - 51.1 %) 17.8 L Monocytes % (1.7 - 9.3 %) 10.5 H Eosinophils % (0 - 5 %) 2.4 Basophils % (0.0 - 2.0 %) 1.0 Absolute Granulocytes (1.4 - 6.5 /CUMM) 3.7 Absolute Lymphocytes (1.2 - 3.4 /CUMM) 1.0 L Absolute Monocytes (0.10 - 0.60 /CUMM) 0.6 Absolute Eosinophils (0.0 - 0.7 /CUMM) 0.1 Absolute Basophils (0.0 - 0.2 /CUMM) 0.1
[2017-07-08 14:39] VITALS: BP 110/62
[2017-07-08] MEDS ORDERED: SYNTHROID75 MCG PO (14:43)
--- NOTE | 2017-07-08 14:58 | Patient Discharge Instructions ---
Discharge Instructions General Discharge Information You were seen/treated for: 1 acute decompensation of HFpEF #2 hypertension #3 anemia #4 atrial fibrillation #5 history of prostate cancer #6 hypothyroidism #7 Metabolic alkalosis #8 Pleural effusion Special Instructions: 1- please follow-up with your PCP in 1 week of discharge 2please follow-up with business law teacher in 1 week of discharge 3please get BEP checked in 1 week of discharge Diet Continue normal diet: No Recommended Diet: Heart Healthy Additional DIET Information: Pure food with nectar thick fluids Acute Coronary Syndrome Inclusion Criteria At DC or during hospital stay patient has or had the following: ACS DIAGNOSIS No Discharge Core Measures Meds if any: Prescribed or Continued at Discharge Meds if any: NOT Prescribed or Continued at Discharge Congestive Heart Failure Inclusion Criteria At DC or during hospital stay patient has or had the following: CHF DIAGNOSIS No Discharge Core Measures Meds if any: Prescribed or Continued at Discharge Meds if any: NOT Prescribed or Continued at Discharge Cerebrovascular accident Inclusion Criteria At DC or during hospital stay patient has or had the following: CVA/TIA Diagnosis No Discharge Core Measures Meds if any: Prescribed or Continued at Discharge Meds if any: NOT Prescribed or Continued at Discharge Venous thromboembolism Inclusion Criteria VTE Diagnosis No VTE Type NONE VTE Confirmed by (Test) NONE Discharge Core Measures - Per Current guidelines, there needs to be overlap - treatment for the first 5 days of Warfarin therapy. - If discharged on Warfarin prior to 5 days of - overlap therapy, the patient will need to be - assessed for post discharge needs including - *Post discharge parental anticoagulation - *Warfarin and/or parental anticoagulation education - *Follow up date to check INR post discharge At least 5 days overlap therapy as Inpatient No Meds if any: Prescribed or Continued at Discharge Note: Overlap Therapy is Warfarin and Anticoagulant Meds if any: NOT Prescribed or Continued at Discharge
--- NOTE | 2017-07-08 15:09 | RADIOLOGY REPORT ---
EXAMINATION: XR MODIFIED BARIUM SWALLOW CLINICAL INFORMATION: Choking while eating. Presumptive diagnosis of CHF and pleural effusion. COMPARISON: None. TECHNIQUE: A modified barium swallow was performed with speech pathologist in attendance. Pur?e, honey thick, nectar thick, and thin consistencies were given to the patient and the swallowing mechanism was observed fluoroscopically with several spot films taken using the last image hold feature. FLUOROSCOPY TIME: 2 minutes 41 seconds. FINDINGS: With all consistencies, the oropharyngeal phase of swallowing is disordered with premature spilling of contrast into the valleculae and piriform sinuses seen. Pooling of contrast in the valleculae is also noted, especially with thin liquids. With puree, minimal and transient silent penetration of contrast is seen. With honey and nectar consistency, no penetration was observed. With thin liquids, relatively large volume silent aspiration of contrast is seen. No significant pooling of contrast is noted in the valleculae or piriform sinuses. IMPRESSION: 1. Significant silent aspiration of contrast seen with thin liquids. There is also significant pooling of contrast within the vallecula with ineffectual and incomplete clearance of contrast with coughing maneuver and throat clearing. 2. Transient silent penetration of contrast with puree observed on one of 3 trials. 3. Disordered oropharyngeal phase of swallowing with spillage of contrast into the valleculae and piriform sinuses and pooling of contrast in the valleculae seen. 4. Speech pathologist assessment issued separately.
--- NOTE | 2017-07-08 15:50 | Discharge Summary ---
Visit Information Visit Dates Admission Date: 07/04/17 Discharge Date: 07/20/17 Hospital Course Course Attending Physician: Maribeth RECIO,Nishant Auguste Primary Care Physician: Damon RECIO,Jay Curiel Hospital Course: 87-year-old gentleman with a past history of atrial fibrillation previously on side also, currently not on any anticoagulation secondary to GI bleed, hypertension, prostate cancer, ? AAA repair hyperlipidemia, coronary artery disease, dementia, CHF, pacemaker in place, indwelling Cortes placed approximately 1 year ago was brought in for chief concern of elevated blood pressure and pedal edema. His visiting nurse noted that he had bibasilar crackles, and recommended him to go to [place] ER. Pt doesnt report any symptoms at all. Does not have any dyspnea, chest pain, palpitations, lightheadedness. Gives a h/o indiscretion to salt use. [facility] admission to [facility] 08/2016 for acute hypoxic respiratory failure. Secondary to pneumonia. Patient was initially admitted to telemetry floor for treatment of: #acute decompensation of HFpEF Patient was treated with IV Lasix 40 twice daily which was subsequently switched to p.o. Lasix. 40 mg daily # Moderatelarge pleural effusion: Patient had diagnostic and therapeutic thoracocentesis on 07/05/17 with removal of 1.8 L of fluid, body fluid showed WBC 153, RBCs 1150, pH 7.44, negative culture, negative pathology. Thoracocentesis was complicated with new small stable pneumothorax. The patient was asymptomatic and was followed up with chest x-ray daily which did not show any changes in the size of the pneumothorax. Cardiothoracic surgery were on board and did not recommend any intervention. #hypothyroidism: Patient was found to have TSH of 18.9, his levothyroxine was increased to 75 mcg , to be followed up with thyroid function in 1 week and to follow-up with endocrinology as outpatient #Frequent choking: Patient failed MBS, was started on pure diet and nectar thick fluid #Asymptomatic bacteriuria with chronic indwelling Cortes catheter: Patient was afebrile and did not have any symptoms, he was watched of antibiotics, his Cortes catheter was changed, to follow-up with urology as outpatient Patient is full code DVT prophylaxis with subcutaneous heparin Heart healthy diet with pured and nectar thick Allergies: Coded Allergies: No Known Allergies (12/15/17) Disposition Summary Disposition Principal Diagnosis: 1 acute decompensation of HFpEF #2 hypertension #3 anemia Additional Diagnosis: Right pneumothorax Discharge Disposition: home health services Discharge Instructions General Discharge Information Code Status: Full Code Patient's Diet: CHF with Puree and [place] thick Patient's Activity: As tolerated Follow-Up Instructions/Appts: 1- please follow-up with your PCP in 1 week of discharge 2please follow-up with hydraulic controls technician in 1 week of discharge 3please get BEP checked in 1 week of discharge Medications at Discharge Discharge Medications: Stop taking the following medications: Levothyroxine Sodium (Levothyroxine Sodium) 50 MCG TABLET ORAL DAILY Qty = 4 Furosemide (Lasix) 40 MG TABLET ORAL DAILY Qty = 30 Continue taking these medications: Cholecalciferol (Vitamin D3) 1,000 UNIT TABLET 1 Tablet ORAL DAILY Comments: Last Taken: 07/20/17 Time: 9:40 AM Gabapentin (Gabapentin) 100 MG CAPSULE 1 Capsule ORAL THREE TIMES DAILY Qty = 90 Comments: Last Taken: 03/04/17 Time: 10:00 AM NOT GIVEN IN HOSPITAL Last Taken: Time: Ferrous Sulfate (Ferrous Sulfate) 325 MG (65 MG IRON) TABLET 1 Tablet ORAL THREE TIMES DAILY Comments: Last Taken:07/20/17 Time:9:48 AM Tamsulosin HCl (Tamsulosin HCl) 0.4 MG CAP.ER.24H 1 Capsule ORAL TWICE DAILY Qty = 180 Comments: Last Taken: 07/20/17 Time: 9:48 AM Finasteride (Finasteride) 5 MG TABLET 1 Tablet ORAL DAILY Qty = 90 Comments: Last Taken: 07/20/17 Time: 9:49 AM Omeprazole (Omeprazole) 20 MG CAPSULE.DR 1 Capsule ORAL DAILY Qty = 90 Comments: TAKEN: 03/04/17 TIME: 10:00 AM Ondansetron (Zofran Odt) 4 MG TAB.RAPDIS 1 Tablet SUBLINGUAL THREE TIMES DAILY as needed for nausea Qty = 10 Start taking the following new medications: Sulfamethoxazole/Trimethoprim (Sulfamethoxazole-Tmp Ds Tablet) 800 MG-160 MG TABLET 1 Tablet ORAL DAILY Qty = 5 No Refills Donepezil HCl (Aricept) 5 MG TABLET 1 Tablet ORAL DAILY Qty = 30 No Refills Levothyroxine Sodium (Synthroid) 75 MCG TABLET 0.075 Milligram ORAL DAILY BEFORE BREAKFAST Qty = 30 No Refills Furosemide (Lasix) 40 MG TABLET 1 Tablet ORAL TWICE DAILY Qty = 30 No Refills Melatonin (Melatonin) 3 MG TABLET 1 Tablet ORAL Every night Qty = 30 No Refills Copies To: Damon RECIO,Jay Curiel
--- NOTE | 2017-07-08 16:23 | PN- Thoracic Surgery ---
See Addendum Surgical Brief Attending Note Brief Attending Note: called for consult This 87 year old male with a pmh significant for afib (off a/c due to GI bleed), hypertension, prostate cancer, hyperlipidemia, coronary artery disease, dementia , CHF, s/p pacemaker, with chronic indwelling little, was brought in for uncontrolled hypertension and pedal edema. He was admitted for chf exacerbation , and had a ultrasound guided thoracentesis on 07/05 for a large right sided pleural effusion. Subsequently he was noted to have a right basilar pneumothorax , which has been relatively asymptomatic for the patient, and stable over the last several days. discussed above with , who agrees this is likely an ex vacuo ptx, which is stable and relatively asymptomtic, and does not require any intervention at this time. will f/u cxr in am discussed above with medical team
--- NOTE | 2017-07-08 21:59 | PN- Cardiology ---
Subjective Subjective: * no specific complaints * creatinine is 1.8 * increased TSH * hydropneumothorax is present * aspiration noted on barium swallow Objective Vital Signs and I&Os Vital Signs Date Time Temp Pulse Resp B/P B/P Pulse O2 O2 Flow FiO2 Mean Ox Delivery Rate 07/08 1439 97.8 64 18 110/62 94 Room Air 07/08 1127 112/60 07/08 0751 97.9 65 18 108/58 94 Room Air 07/08 0000 Room Air 07/07 2212 97.2 73 18 110/56 92 Room Air Intake & Output 07/08 1600 07/08 0800 07/08 0000 07/07 1600 07/07 0800 07/07 0000 Intake Total 400 120 120 600 120 320 Output Total 154 260 3140 450 225 Balance 400 -280 -480 -400 -330 95 Intake, Oral 400 120 120 600 120 320 Number 1 1 1 Bowel Movements Output, Stool Output, Urine 334 895 7290 450 225 Patient 165 lb 166 lb Weight Weight Bed scale Measurement Method Physical Exam: General: WD/WN male in NAD; awake and responsive with decreased memory HEENT: NC/AT, PERRL, EOMI Neck: positive JVD, bilateral carotid bruits L>R Heart: RRR with 2/6 systolic murmur at the RUSB and apex and 2/6 left subclavian bruit Lungs: clear bilaterally Abdomen: soft, NT, +ve bowel sounds Extremities: no leg edema Assessment/Plan Assessment/Plan * Due to increased creatinine. Continue to hold Lasix. * agree with levothyroxine Continue telemetry? No
[2017-07-08 23:21] VITALS: BP 128/60
[2017-07-09 06:42] VITALS: BP 98/57
--- NOTE | 2017-07-09 08:53 | PN- Housestaff ---
See Addendum Subjective Follow-up For: 1 acute decompensation of HFpEF #2 hypertension #3 anemia #4 atrial fibrillation #5 history of prostate cancer #6 hypothyroidism #7 Metabolic alkalosis #8 Pleural effusion #9 Pneumothorax Subjective: Patient was not seen or examined as he went to [facility]. Per nurse, patient has no overnight events or new complaints. vital signs are stable overnight however has a reading of 98/57 this morning, will repeat blood pressure. Review of Systems Constitutional: Reports: see HPI. Objective Last 24 Hrs of Vital Signs/I&O Vital Signs Date Time Temp Pulse Resp B/P B/P Pulse O2 O2 Flow FiO2 Mean Ox Delivery Rate 07/09 0642 97.9 85 18 98/57 92 07/09 0000 Room Air 07/08 2321 98.2 75 18 128/60 92 Room Air 07/08 1600 95 Room Air 07/08 1439 97.8 64 18 110/62 94 Room Air 07/08 1127 112/60 Intake & Output 07/09 1600 07/09 0800 07/09 0000 Intake Total 60 260 Output Total 300 300 Balance -240 -40 Intake, IV 10 Intake, Oral 60 250 Number 0 Bowel Movements Output, Urine 300 300 Patient 74.956 kg Weight Physical Exam General Appearance: Alert, Cooperative, No Acute Distress Skin: No Rashes Skin Temp/Moisture Exam: Warm/Dry HEENT: Atraumatic, PERRLA Neck: Supple Cardiovascular: Regular Rate, Normal S1, Normal S2, No Murmurs Lungs: Clear to Auscultation, Normal Air Movement Abdomen: Normal Bowel Sounds, Soft Neurological: Normal Speech, Strength at 5/5 X4 Ext, Normal Tone Extremities: No Clubbing, No Cyanosis, No Edema Assessment/Plan Assessment: 87-year-old gentleman with a past history of atrial fibrillationOFF Xeralto dut to GI bleed currently not on any anticoagulation secondary to GI bleed, hypertension, prostate cancer, ? AAA repair hyperlipidemia, coronary artery disease, dementia, CHF, pacemaker in place, indwelling Cortes placed approximately 1 year ago was brought in for chief concern of elevated blood pressure and pedal edema. His visiting nurse noted that he had bibasilar crackles, and recommended him to go to [place] ER. Pt doesnt report any symptoms at all. (Patient has history of dementia) on admission the patient had elevated BNP 7420, TSH was markedly elevated at 25.3 which is unclear whether the patient was not taking his levothyroxine or dose was not optimal, which might have added to his CHF, CXR shows large Rt pleural effusion which might be due to CHF exacerbation with an element of hypothyroidism Problem list: #1 acute decompensation of HFpEF #2 hypertension #3 anemia #4 atrial fibrillation #5 history of prostate cancer #6 hypothyroidism #7 Metabolic alkalosis #8 Moderatelarge pleural effusion #9 VIRGILIO on CKD (creatinine worsened today to 1.6) Pleural fluid were negative for malignant cells Plan: -Continue to monitor on telemetry -Hold Lasix to 40 mg p.o. for worsening kidney function--BMP is still peding this am -Continue home dose of finasteride -Continue Flomax -Continue levothyroxine to 75 mcg daily before meals -Patient failed MBS, speech recommended pure with nectar thick -Close monitoring of ins and outs - 2D Echocardiogram -Initial culture and sensitivity of pleural tap were negative - Cardiology recommendation appreciated -Continue to follow off antibiotics pending urine culture results sent on 07/06 -Strict I's and O's, daily weights--positive by 80 mL -Vitals every shift -Follow-up on chest x-ray in the morning for evaluation of the progression of pneumothorax--pending this a.m. CT surgery was consulted with recommendation to obtain chest x-ray, no intervention at this time as patient is stable and asymptomatic -We'll hold off treating UTI since patient is Asymptomatic with no fever or leukocytosis Full code, DVT prophylaxis with subcutaneous heparin CHF diet, pured with nectar thick Problem List: 1. Pleural effusion 2. Fluid overload Pain Ratin Pain Location: n/a Pain Goal: Pain 4 or less Pain Plan: see medication Tomorrow's Labs & Rationales: BMP
[2017-07-09 09:25] LABS: ABSOLUTE BASOPHIL COUNT 0 /CUMM (0.0-0.2); ABSOLUTE EOSINOPHIL COUNT 0.1 /CUMM (0.0-0.7); ABSOLUTE GRANULOCYTE CT 2.9 /CUMM (1.4-6.5); ABSOLUTE LYMPH COUNT 0.8 /CUMM (1.2-3.4); ABSOLUTE MONOCYTE COUNT 0.6 /CUMM (0.10-0.60); BASOPHIL % 0.8 % (0.0-2.0); EOSINOPHIL % 2.2 % (0-5); GRANULOCYTE % 65.6 % (42.2-75.2); MEAN PLATELET VOLUME 8.9 FL (7.4-10.4); PLATELET COUNT 127 /CUMM (130-400); RBC DISTRIBUTION WIDTH 16.8 % (11.5-14.5); WHITE BLOOD CELL COUNT 4.5 /CUMM (4.8-10.8)
--- NOTE | 2017-07-09 10:59 | RADIOLOGY REPORT ---
EXAMINATION: XR CHEST CLINICAL INFORMATION: Follow-up pneumothorax. COMPARISON: Chest radiograph from 03/02/2017, 07/06/2017 and 07/07/2017 TECHNIQUE: 2 views of the chest were obtained. FINDINGS: The moderate right pneumothorax appears unchanged in size compared. The visceral pleural line at the apex of the right lung projects 1.4 cm below the inferior margin of the right second rib, unchanged compared to 07/06/2017. The volume of fluid within the right pleural space remain similar compared to the PA and lateral views from 07/07/2017. There is chronic thickening of peribronchial interstitium in both lungs. There is suggestion of chronic pulmonary emphysema. Again noted is a large cardiac silhouette and calcified aorta. There is a single lead cardiac pacemaker in place. There are a few old right rib fractures. IMPRESSION: The moderate right pneumothorax and pleural effusion have not significantly changed compared to the recent chest radiographs.
[2017-07-09 11:24] LABS: HEMATOCRIT 25.6 % (42-52); RED BLOOD CELL CT 2.49 /CUMM (4.70-6.10)
[2017-07-09 11:25] LABS: MEAN CORPUSCULAR HGB CONC 32.2 G/DL (33.0-37.0); MEAN CORPUSCULAR VOLUME 102.7 FL (80.0-94.0)
[2017-07-09 14:55] VITALS: BP 122/60
--- NOTE | 2017-07-09 16:14 | PN- Thoracic Surgery ---
Subjective Subjective: no complaints, no fever, no shortness of breath, no chest pain, he is resting comfortably in bed Objective Vital Signs and I&Os Vital Signs Date Time Temp Pulse Resp B/P B/P Pulse O2 O2 Flow FiO2 Mean Ox Delivery Rate 07/09 1455 97.8 67 20 122/60 97 Room Air 07/09 0915 98/57 07/09 0800 Room Air 07/09 0642 97.9 85 18 98/57 92 07/09 0000 Room Air 07/08 2321 98.2 75 18 128/60 92 Room Air Intake & Output 07/09 1600 07/09 0800 07/09 0000 07/08 1600 07/08 0800 07/08 0000 Intake Total 600 60 260 400 120 120 Output Total 300 300 400 600 Balance 600 -240 -40 400 -280 -480 Intake, IV 10 Intake, Oral 600 60 250 400 120 120 Number 0 1 1 1 Bowel Movements Output, Stool Output, Urine 300 300 400 600 Patient 165 lb 165 lb Weight Physical Exam: Well-developed well-nourished no apparent distress. HEENT: Atraumatic, extraocular motion intact Neck: Supple, no lymphadenopathy trachea is midline Respiratory: No respiratory distress, crackles noted right side, decreased lung sounds right side Neuro: Alert and oriented x3 Psych: Mood affect normal, normal memory normal judgment. Skin: Warm and dry, no rash on exposed skin Results Last 48 Hours of Labs: Laboratory Tests 07/09 07/08 0630 0637 Chemistry Sodium (137 - 145 mmol/L) 136 L 137 Potassium (3.5 - 5.1 mmol/L) 4.0 4.1 Chloride (98 - 107 mmol/L) 96 L 96 L Carbon Dioxide (22 - 30 mmol/L) 35 H 34 H Anion Gap (5 - 16) 5 7 BUN (9 - 20 mg/dL) 29 H 32 H Creatinine (0.7 - 1.2 mg/dL) 1.6 H 1.8 H Estimated GFR (>60 ml/min) 41 L 36 L BUN/Creatinine Ratio (7 - 25 %) 18.1 17.8 Phosphorus (2.5 - 4.5 mg/dL) 3.6 Magnesium (1.6 - 2.3 mg/dL) 2.0 TSH (0.270 - 4.200 uIU/mL) 18.900 H Free T4 (0.85 - 1.93 ng/dL) 1.29 Hematology CBC w Diff NO MAN DIFF REQ NO MAN DIFF REQ WBC (4.8 - 10.8 /CUMM) 4.5 L 5.4 RBC (4.70 - 6.10 /CUMM) 2.49 L 2.67 L Hgb (14.0 - 18.0 G/DL) 8.2 L 8.8 L Hct (42 - 52 %) 25.6 L 27.4 L MCV (80.0 - 94.0 FL) 102.7 H 102.0 H MCH (27.0 - 31.0 PG) 33.0 H 33.1 H MCHC (33.0 - 37.0 G/DL) 32.2 L 32.3 L RDW (11.5 - 14.5 %) 16.8 H 17.4 H Plt Count (130 - 400 /CUMM) 127 L 142 MPV (7.4 - 10.4 FL) 8.9 8.7 Gran % (42.2 - 75.2 %) 65.6 68.3 Lymphocytes % (20.5 - 51.1 %) 18.8 L 17.8 L Monocytes % (1.7 - 9.3 %) 12.6 H 10.5 H Eosinophils % (0 - 5 %) 2.2 2.4 Basophils % (0.0 - 2.0 %) 0.8 1.0 Absolute Granulocytes (1.4 - 6.5 /CUMM) 2.9 3.7 Absolute Lymphocytes (1.2 - 3.4 /CUMM) 0.8 L 1.0 L Absolute Monocytes (0.10 - 0.60 /CUMM) 0.6 0.6 Absolute Eosinophils (0.0 - 0.7 /CUMM) 0.1 0.1 Absolute Basophils (0.0 - 0.2 /CUMM) 0 0.1 Recent Imaging Studies: PATIENT: XENA FLORES PRESENT AGE: 87 PATIENT ACCOUNT NO: [id number] : 30 LOCATION: 1NO ORDERING PHYSICIAN: Nohelia Edmondson MD SERVICE DATE: 07/09/17 EXAM TYPE: RAD - XRY-CHEST XRAY, TWO VIEWS EXAMINATION: XR CHEST CLINICAL INFORMATION: Follow-up pneumothorax. COMPARISON: Chest radiograph from 03/02/2017, 07/06/2017 and 07/07/2017 TECHNIQUE: 2 views of the chest were obtained. FINDINGS: The moderate right pneumothorax appears unchanged in size compared. The visceral pleural line at the apex of the right lung projects 1.4 cm below the inferior margin of the right second rib, unchanged compared to 07/06/2017. The volume of fluid within the right pleural space remain similar compared to the PA and lateral views from 07/07/2017. There is chronic thickening of peribronchial interstitium in both lungs. There is suggestion of chronic pulmonary emphysema. Again noted is a large cardiac silhouette and calcified aorta. There is a single lead cardiac pacemaker in place. There are a few old right rib fractures. IMPRESSION: The moderate right pneumothorax and pleural effusion have not significantly changed compared to the recent chest radiographs. DICTATED BY: Nagi Rivera MD DATE/TIME DICTATED:07/09/171048 DIRECTOR OF NEUROLOGY:FRANCES DATE/TIME TRANSCRIBED:07/09/171048 CONFIDENTIAL, DO NOT COPY WITHOUT APPROPRIATE AUTHORIZATION. <Electronically signed in Other Vendor System> SIGNED BY: Nagi Rivera MD 07/09/17 105 Assessment/Plan Assessment/Plan Persistent moderate right pneumothorax and pleural effusion status post IR thoracentesis Patient asymptomatic, continue monitoring, daily chest x-rays, will follow, continue medical management for CHF dw Dr Lipscomb
[2017-07-09 22:43] VITALS: BP 128/74
[2017-07-10 07:03] VITALS: BP 122/67
[2017-07-10 07:39] LABS: ABSOLUTE BASOPHIL COUNT 0 /CUMM (0.0-0.2); ABSOLUTE EOSINOPHIL COUNT 0.1 /CUMM (0.0-0.7); ABSOLUTE GRANULOCYTE CT 2.8 /CUMM (1.4-6.5); ABSOLUTE LYMPH COUNT 0.8 /CUMM (1.2-3.4); ABSOLUTE MONOCYTE COUNT 0.5 /CUMM (0.10-0.60); BASOPHIL % 0.8 % (0.0-2.0); EOSINOPHIL % 3.1 % (0-5); GRANULOCYTE % 65.5 % (42.2-75.2); MEAN PLATELET VOLUME 8.9 FL (7.4-10.4); PLATELET COUNT 128 /CUMM (130-400); RBC DISTRIBUTION WIDTH 17.1 % (11.5-14.5); WHITE BLOOD CELL COUNT 4.2 /CUMM (4.8-10.8)
--- NOTE | 2017-07-10 07:55 | PN- Housestaff ---
Debo RECIO,Nohelia 07/10/17 0754: Subjective Follow-up For: 1 acute decompensation of HFpEF #2 hypertension #3 anemia #4 atrial fibrillation #5 history of prostate cancer #6 hypothyroidism #7 Metabolic alkalosis #8 Pleural effusion #9 Pneumothorax Complaints: no complaints Tele-Events Since Last Visit: OFF TELE Subjective: Patient was seen and examined at bedside, blood pressure is a stable today at 122/67, denies any complaints, Cortes catheter in place, stable H&H and platelets are 128 better than yesterday Review of Systems Constitutional: Reports: see HPI. Objective Last 24 Hrs of Vital Signs/I&O Vital Signs Date Time Temp Pulse Resp B/P B/P Pulse O2 O2 Flow FiO2 Mean Ox Delivery Rate 07/10 0703 97.5 75 20 122/67 93 07/09 2243 98.7 78 20 128/74 94 Room Air 07/09 2035 Room Air 07/09 1455 97.8 67 20 122/60 97 Room Air Intake & Output 07/10 1600 07/10 0800 07/10 0000 Intake Total Output Total 250 250 Balance -250 -250 Output, Urine 250 250 Physical Exam General Appearance: Alert, Cooperative, No Acute Distress HEENT: Atraumatic, PERRLA, EOMI, Mucous Membr. moist/pink Neck: Supple, No JVD Cardiovascular: Normal S1, Normal S2, No Murmurs Lungs: Clear to Auscultation Abdomen: Normal Bowel Sounds, Soft, No Tenderness Neurological: Normal Speech, Strength at 5/5 X4 Ext, Normal Tone Extremities: No Clubbing, No Cyanosis, 2+ PITTING EDEMA Vascular: Normal Pulses Assessment/Plan Assessment: 87-year-old gentleman with a past history of atrial fibrillationOFF Xeralto dut to GI bleed currently not on any anticoagulation secondary to GI bleed, hypertension, prostate cancer, ? AAA repair hyperlipidemia, coronary artery disease, dementia, CHF, pacemaker in place, indwelling Cortes placed approximately 1 year ago was brought in for chief concern of elevated blood pressure and pedal edema. His visiting nurse noted that he had bibasilar crackles, and recommended him to go to [facility]. Pt doesnt report any symptoms at all. (Patient has history of dementia) on admission the patient had elevated BNP 7420, TSH was markedly elevated at 25.3 which is unclear whether the patient was not taking his levothyroxine or dose was not optimal, which might have added to his CHF, CXR shows large Rt pleural effusion which might be due to CHF exacerbation with an element of hypothyroidism Problem list: #1 acute decompensation of HFpEF #2 hypertension #3 anemia #4 atrial fibrillation #5 history of prostate cancer #6 hypothyroidism #7 Metabolic alkalosis #8 Moderatelarge pleural effusion #9 VIRGILIO on CKD (creatinine worsened today to 1.6) Pleural fluid were negative for malignant cells Plan: -Continue to monitor on telemetry -Hold Lasix to 40 mg p.o. for worsening kidney function--BMP is still peding this am -Continue home dose of finasteride -Continue Flomax -Continue levothyroxine to 75 mcg daily before meals -Patient failed MBS, speech recommended pure with nectar thick -Close monitoring of ins and outs - 2D Echocardiogram -Initial culture and sensitivity of pleural tap were negative - Cardiology recommendation appreciated -Continue to follow off antibiotics pending urine culture results sent on 07/06 -Strict I's and O's, daily weights--positive by 80 mL -Vitals every shift -Follow-up on chest x-ray in the morning for evaluation of the progression of pneumothorax-today showed that pneumothorax did not change in size CT surgery recommend daily chest x-rays to follow-up with pneumothorax -We'll hold off treating UTI since patient is Asymptomatic with no fever or leukocytosis Full code, DVT prophylaxis with subcutaneous heparin CHF diet, pured with nectar thick Problem List: 1. Pleural effusion 2. Fluid overload 3. Dementia 4. CHF (congestive heart failure) 5. Atrial fibrillation with normal ventricular rate Pain Ratin Pain Location: N/A Pain Goal: Remain pain free Pain Plan: PATHWAY Tomorrow's Labs & Rationales: CBC BEP Shayy RECIO,Fermin 07/10/17 1238: Attending MD Review Statement Attending Statement Attending MD Statement: examined this patient, discuss w/resident/PA/DIRECTOR OF CUSTOMER ACQUISITION, agreed w/resident/PA/DIRECTOR OF CUSTOMER ACQUISITION, reviewed EMR data (avail), discussed with nursing, discussed with case mgmt, amended to note Attending Assessment/Plan: Patient seen and examined. Resting comfortably not in any acute distress. No issues overnight. No significant events on telemetry monitoring overnight. Patient has no new complaints this morning denies chest pain or shortness of breath. He is afebrile. He is hemodynamically stable. On examination lungs are clear bilaterally with decreased breath sounds in the bases. Abdomen is soft and nontender. Laboratory data shows renal function to be stable. Chest x -ray done today shows unchanged right pneumothorax. Recommendations: -Continue diuresis with Lasix. -Follow-up with the cardiothoracic surgery regarding discharge recommendations if his pneumothorax persists. -Physical therapy consultation for discharge planning.
[2017-07-10 08:34] LABS: HEMATOCRIT 26.1 % (42-52); MEAN CORPUSCULAR HGB 33.2 PG (27.0-31.0); MEAN CORPUSCULAR HGB CONC 32.5 G/DL (33.0-37.0); RED BLOOD CELL CT 2.56 /CUMM (4.70-6.10)
--- NOTE | 2017-07-10 11:06 | RADIOLOGY REPORT ---
EXAMINATION: XR PORTABLE CHEST CLINICAL INFORMATION: Follow-up pneumothorax. COMPARISON: 07/07/2017 and 07/09/2017 TECHNIQUE: Portable frontal view of the chest was obtained. FINDINGS: The moderate sized pneumothorax is unchanged. The visceral pleural line projects 1.4 cm below the inferior margin of the right second rib. The amount of pleural fluid in the right costophrenic sulcus appears slightly increased. Again noted is cardiomegaly and diffuse thickening of peribronchial interstitium. There are no new, unexpected findings in the chest compared to 07/09/2017. IMPRESSION: The size of the right pneumothorax remains unchanged.
[2017-07-10 14:00] VITALS: BP 112/60
[2017-07-10 22:00] VITALS: BP 112/64
[2017-07-11 06:23] VITALS: BP 102/59
--- NOTE | 2017-07-11 07:44 | PN- Housestaff ---
Bc RECIO,Beth 07/11/17 0744: Subjective Follow-up For: 1 acute decompensation of HFpEF 2 Pneumothorax 3 atrial fibrillation 4 loculated pleural effusion Subjective: seen and examined Asymptomatic on room air. denies any overnight issues. Review of Systems Constitutional: Reports: see HPI. Objective Last 24 Hrs of Vital Signs/I&O Vital Signs Date Time Temp Pulse Resp B/P B/P Pulse O2 O2 Flow FiO2 Mean Ox Delivery Rate 07/11 622 97.4 79 20 102/59 96 07/10 2200 Room Air 07/10 220 97.8 68 20 112/64 95 Nasal 2.0L Cannula 07/10 1400 97.8 83 20 112/60 98 07/10 1122 112/70 Intake & Output 07/11 0800 07/11 0000 07/10 1600 Intake Total 1200 0 Output Total 350 200 Balance 850 0 -200 Intake, IV 0 0 Intake, Oral 1200 0 Number 0 0 1 Bowel Movements Output, Urine 350 200 Physical Exam General Appearance: Alert, Cooperative, No Acute Distress Skin: No Rashes, No Breakdown HEENT: Atraumatic, PERRLA, EOMI Neck: Supple Lungs: Normal Air Movement, decreased breath sounds on right side Abdomen: Normal Bowel Sounds, Soft, No Tenderness Neurological: Normal Speech Extremities: No Clubbing, No Cyanosis Current Medications: Current Medications Sig/Edvin Start time Last Medication Dose Route Stop Time Status Admin Cholecalciferol 1,000 IU DAILY 07/05 1000 AC 07/10 PO 1122 Ferrous Sulfate 325 MG DAILY 07/05 1000 AC 07/10 PO 1122 Finasteride 5 MG DAILY 07/05 1000 AC 07/10 PO 1122 Furosemide 40 MG DAILY 07/09 1530 AC 07/10 PO 1122 Gabapentin 100 MG TID 07/05 1000 AC 07/10 PO 2032 Heparin Sodium 5,000 UNIT Q8 07/05 0600 AC 07/11 (Porcine) SC 0613 Levothyroxine Sodium 0.075 MG DAILY AC 07/06 0700 AC 07/11 PO 0613 Omeprazole 40 MG DAILY AC 07/05 0700 AC 07/11 PO 0613 Tamsulosin HCl 0.4 MG DAILY 07/08 1000 AC 07/10 PO 1122 Last 24 Hrs of Lab/Saud Results Last 24 Hrs of Labs/Mics: Laboratory Tests 07/11/17 0745: Anion Gap 7, Estimated GFR 44 L, BUN/Creatinine Ratio 19.3, CBC w Diff NO MAN DIFF REQ, RBC 2.50 L, MCV 102.1 H, MCH 32.5 H, MCHC 31.8 L, RDW 16.8 H, MPV 8.6, Gran % 77.0 H, Lymphocytes % 11.2 L, Monocytes % 9.7 H, Eosinophils % 1.9, Basophils % 0.2, Absolute Granulocytes 4.7, Absolute Lymphocytes 0.7 L, Absolute Monocytes 0.6, Absolute Eosinophils 0.1, Absolute Basophils 0 Assessment/Plan Assessment: 87-year-old gentleman with a past history of atrial fibrillationOFF Xeralto dut to GI bleed currently not on any anticoagulation secondary to GI bleed, hypertension, prostate cancer, ? AAA repair hyperlipidemia, coronary artery disease, dementia, CHF, pacemaker in place, indwelling Cortes placed approximately 1 year ago was brought in for chief concern of elevated blood pressure and pedal edema. His visiting nurse noted that he had bibasilar crackles, and recommended him to go to [place] [facility]. Pt doesnt report any symptoms at all. (Patient has history of dementia) on admission the patient had elevated BNP 7420, TSH was markedly elevated at 25.3 which is unclear whether the patient was not taking his levothyroxine or dose was not optimal, which might have added to his CHF, CXR shows large Rt pleural effusion which might be due to CHF exacerbation with an element of hypothyroidism Problem list: #1 acute decompensation of HFpEF #2 hypertension #3 anemia #4 atrial fibrillation #5 history of prostate cancer #6 hypothyroidism #7 Metabolic alkalosis #8 Moderatelarge pleural effusion #9 VIRGILIO on CKD (creatinine worsened today to 1.6) Pleural fluid were negative for malignant cells Plan: - Restarted on lasix 40mg daily - Pulm consult for loculated pleural effusion with persistant penumothorax. -Continue home dose of finasteride -Continue Flomax -Continue levothyroxine to 75 mcg daily before meals -Patient failed MBS, speech recommended pure with nectar thick Full code, DVT prophylaxis with subcutaneous heparin CHF diet, pured with nectar thick Problem List: 1. Fluid overload 2. Pleural effusion 3. Weakness 4. Dementia 5. CHF (congestive heart failure) Pain Ratin Pain Location: n/a Pain Goal: Pain 4 or less Pain Plan: tylenol prn Tomorrow's Labs & Rationales: none Taqueria RECIODominique 07/11/17 1202: Attending MD Review Statement Attending Statement Attending MD Statement: examined this patient, discuss w/resident/PA/DIRECTOR WHOLESALE, agreed w/resident/PA/DIRECTOR WHOLESALE, reviewed EMR data (avail), discussed with nursing, discussed with case mgmt, reviewed images, amended to note Attending Assessment/Plan: Patient seen and examined, denies any complaints. Not requiring any oxygen. Although when he talks he looks somewhat out of breath but he denies feeling any shortness of breath. Chest x-ray shows increased size of right-sided pneumothorax. Vital Signs Date Time Temp Pulse Resp B/P B/P Pulse O2 O2 Flow FiO2 Mean Ox Delivery Rate 07/11 0903 80 108/60 07/11 0800 96 Room Air 07/11 0623 97.4 79 20 102/59 96 07/10 2200 Room Air 07/10 2200 97.8 68 20 112/64 95 Nasal 2.0L Cannula 07/10 1400 97.8 83 20 112/60 98 on exam; aox3, nad. cv; s1, s2, irregular. resp; clear abd; soft, nt, bs+ ext; no edema. Laboratory Tests 07/11 0745 Chemistry Sodium (137 - 145 mmol/L) 136 L Potassium (3.5 - 5.1 mmol/L) 4.5 Chloride (98 - 107 mmol/L) 94 L Carbon Dioxide (22 - 30 mmol/L) 35 H Anion Gap (5 - 16) 7 BUN (9 - 20 mg/dL) 29 H Creatinine (0.7 - 1.2 mg/dL) 1.5 H Estimated GFR (>60 ml/min) 44 L BUN/Creatinine Ratio (7 - 25 %) 19.3 Hematology CBC w Diff NO MAN DIFF REQ WBC (4.8 - 10.8 /CUMM) 6.1 RBC (4.70 - 6.10 /CUMM) 2.50 L Hgb (14.0 - 18.0 G/DL) 8.3 L Hct (42 - 52 %) 25.5 L MCV (80.0 - 94.0 FL) 102.1 H MCH (27.0 - 31.0 PG) 32.5 H MCHC (33.0 - 37.0 G/DL) 31.8 L RDW (11.5 - 14.5 %) 16.8 H Plt Count (130 - 400 /CUMM) 137 MPV (7.4 - 10.4 FL) 8.6 Gran % (42.2 - 75.2 %) 77.0 H Lymphocytes % (20.5 - 51.1 %) 11.2 L Monocytes % (1.7 - 9.3 %) 9.7 H Eosinophils % (0 - 5 %) 1.9 Basophils % (0.0 - 2.0 %) 0.2 Absolute Granulocytes (1.4 - 6.5 /CUMM) 4.7 Absolute Lymphocytes (1.2 - 3.4 /CUMM) 0.7 L Absolute Monocytes (0.10 - 0.60 /CUMM) 0.6 Absolute Eosinophils (0.0 - 0.7 /CUMM) 0.1 Absolute Basophils (0.0 - 0.2 /CUMM) 0 A/P; 87 y/o M with pmh sig for atrial fibrillationOFF Xeralto dut to GI bleed currently not on any anticoagulation secondary to GI bleed, hypertension, prostate cancer, ? AAA repair hyperlipidemia, coronary artery disease, dementia, CHF, pacemaker in place, indwelling Cortes admitted with acute on chronic diastolic congestive heart failure, pleural effusion status post thoracentesis now developed pneumothorax which is increased in size and some pleural effusion was also seen on most recent chest x-ray. Patient also had acute on chronic renal failure but creatinine coming back to baseline. Please call CT surgery about this increased size of right-sided pneumothorax. Patient although is asymptomatic and not requiring any oxygen. Has was started on oral Lasix. Continue the rest of the management. DVT prophylaxis: Heparin subcutaneous. Patient to be seen in physical therapy. Disposition plan unclear yet. Will determine after PT eval and CT surgery evaluation.
[2017-07-11 08:28] LABS: ABSOLUTE BASOPHIL COUNT 0 /CUMM (0.0-0.2); ABSOLUTE EOSINOPHIL COUNT 0.1 /CUMM (0.0-0.7); ABSOLUTE GRANULOCYTE CT 4.7 /CUMM (1.4-6.5); ABSOLUTE LYMPH COUNT 0.7 /CUMM (1.2-3.4); ABSOLUTE MONOCYTE COUNT 0.6 /CUMM (0.10-0.60); BASOPHIL % 0.2 % (0.0-2.0); EOSINOPHIL % 1.9 % (0-5); MEAN PLATELET VOLUME 8.6 FL (7.4-10.4); PLATELET COUNT 137 /CUMM (130-400); RBC DISTRIBUTION WIDTH 16.8 % (11.5-14.5); WHITE BLOOD CELL COUNT 6.1 /CUMM (4.8-10.8)
[2017-07-11 09:13] LABS: HEMATOCRIT 25.5 % (42-52); MEAN CORPUSCULAR HGB 32.5 PG (27.0-31.0); MEAN CORPUSCULAR HGB CONC 31.8 G/DL (33.0-37.0); MEAN CORPUSCULAR VOLUME 102.1 FL (80.0-94.0)
--- NOTE | 2017-07-11 09:15 | RADIOLOGY REPORT ---
EXAMINATION: XR CHEST CLINICAL INFORMATION: CHF, pleural effusion, pneumothorax, asymptomatic. Follow-up. COMPARISON: Portable chest x-ray dated 07/10/2017. TECHNIQUE: 2 views of the chest were obtained. FINDINGS: Of a pneumothorax in the right pulmonary apex which extends to the lateral margin of the right hemithorax has probably at least mildly increased in size, a measurement similar to the prior study measures 1.9 cm at the right pulmonary apex compared to 1.4 on the prior study. The lateral aspect of the pneumothorax is more prominent when compared to the previous study. Again noted is the prominent right-sided pleural effusion which appears to be loculated, and is probably significantly increased compared to the prior study. The pulmonary parenchymal appearance is overall stable compared to the prior study with diffuse peribronchial thickening. No new focal areas of airspace opacification are present. The pacemaker in the left upper chest is again noted with a single intact lead. Multilevel bulky osteophyte formation is noted throughout the thoracic spine. IMPRESSION: 1. Increased size of the right-sided pneumothorax compared to the prior study. 2. Increased likely loculated right-sided pleural effusion. 3. Stable peribronchial/interstitial thickening.
--- NOTE | 2017-07-11 13:23 | PN- Thoracic Surgery ---
Surgical Brief Attending Note Brief Attending Note: Despite what our radiology colleagues are writing in their impressions there is no change really in any of the findings in the right chest. The summary is that he has a right lung which will not reexpand because of chronic pleural effusion. As I go through the medical chart there is absolutely no sense of objective from my reading as to why the pleural effusion was even drained in the first place and what we are trying to accomplish. He is asymptomatic and there is no problem with his current clinical status. The next step would be a Pleurx catheter but I don't see any reason to do that if there is again no objective identified in terms of treatment. The medicine service can contact us if there is a decision made as to need for treatment objectives. Pulmonary consultation in this situation might be helpful.
[2017-07-11 14:21] VITALS: BP 107/67
--- NOTE | 2017-07-11 19:18 | Cons- Pulmonary ---
"General Information and HPI Consulting Request Date of Consult: 07/11/17 Requested By: Dr. Meng Reason for Consult: Pleural effusion Source of Information: patient, old records Exam Limitations: no limitations History of Present Illness: The patient is an 87-year-old male with a history of hypertension, coronary artery disease status post angioplasty, chronic atrial fibrillation off anticoagulation, history of pacemaker placement, history of prostate cancer, triple a repair, dementia, mild chronic renal insufficiency, and chronic ambulatory dysfunction. The patient was admitted on 07/04/2017 with complaints of increased lower extremity swelling but respiratory symptoms were denied at the time of admission. The patient is noted to recline in a chair and does not lay flat typically. When the patient was evaluated in the emergency department he was found to have crackles in both lungs and was hypertensive. He also was found to have a persistent right-sided pleural effusion which was seen on a chest x-ray dated 03/02/2017. The patient was admitted to the general medical floor. Testing included both a right and left lower extremity Doppler which were both negative for DVT. On 07/05/2017, the patient also underwent an ultrasound-guided thoracentesis, noting that 800 mL was removed and was consistent with a transudate following fluid analysis. The patient was noted to feel improved after thoracentesis however he denies any history of shortness of breath whatsoever. The patient was undergoing diuresis as per cardiology noting he has significant right atrial dilatation on echocardiogram in the past. He also bumped his creatinine and Lasix was stopped. He has evidence of persistent hydropneumothorax with a chronic right pleural effusion. He has not had any scanning for pulmonary embolism or CT scan of the chest. At present, the patient denies any current complaints with respect to his respiratory system. The patient has been afebrile with a normal white count and stable oxygen saturations. Allergies/Medications Allergies: Coded Allergies: No Known Allergies (04/08/17) Home Med List: Cholecalciferol (Vitamin D3) 1,000 UNIT TABLET 1 TAB PO DAILY SUPPLEMENT ( Reported) Ferrous Sulfate 325 MG (65 MG IRON) TABLET 1 TAB PO TID SUPPLEMENT (Reported) Finasteride 5 MG TABLET 1 TAB PO DAILY prostate (Reported) Furosemide (Lasix) 40 MG TABLET 40 MG PO DAILY DIURESIS Gabapentin 100 MG CAPSULE 1 CAP PO TID NEUROOPATHY (Reported) Levothyroxine Sodium 50 MCG TABLET 1 TAB PO DAILY THYROID (Reported) Levothyroxine Sodium (Synthroid) 75 MCG TABLET 0.075 MG PO DAILY AC HYPOTHYROIDISM Omeprazole 20 MG CAPSULE.DR 1 CAP PO DAILY GASTRITIS Ondansetron (Zofran Odt) 4 MG TAB.RAPDIS 1 TAB SL TID PRN nausea Tamsulosin HCl 0.4 MG CAP.ER.24H 1 CAP PO BID (Reported) Current Medications: Current Medications Sig/Edvin Start time Last Medication Dose Route Stop Time Status Admin Cholecalciferol 1,000 IU DAILY 07/05 1000 AC 07/11 PO 0903 Ferrous Sulfate 325 MG DAILY 07/05 1000 AC 07/11 PO 0903 Finasteride 5 MG DAILY 07/05 1000 AC 07/11 PO 0903 Furosemide 40 MG DAILY 07/09 1530 AC 07/11 PO 0903 Gabapentin 100 MG TID 07/05 1000 AC 07/11 PO 1653 Heparin Sodium 5,000 UNIT Q8 07/05 0600 AC 07/11 (Porcine) SC 1336 Levothyroxine Sodium 0.075 MG DAILY AC 07/06 0700 AC 07/11 PO 0613 Omeprazole 40 MG DAILY AC 07/05 0700 AC 07/11 PO 0613 Tamsulosin HCl 0.4 MG DAILY 07/08 1000 AC 07/11 PO 0903 Review of Systems Review of Systems All Other Systems: Reviewed and Negative 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 WALL Respiratory: NONE Gastrointestinal: BARRETTS ESOPHAGUS GI BLEED Hepatic: NONE Renal: NONE Musculoskeletal: L HAND FRX- 3,4,5TH METACARPALS Psychiatric: NONE Endocrine: NONE Blood Disorders: NONE Cancer(s): NONE CAMP ADVISOR/Reproductive: NONE Other Medical Hx: PROSTATE CANCER (185 | C61) s/p radiation and implants approximately eight years ago. FH: CHOLECYSTECTOMY (V19.8 | Z84.89) HISTORY OF AAA (ABDOMINAL AORTIC ANEURYSM) REPAIR (V45.89 | Z98.89) permanent pacemaker for symptomatic bradycardia BRADYCARDIA (427.89 | R00.1) HTN (HYPERTENSION) (401.9 | I10) EAR LESION (380.89 | H61.899) skin cancer ATRIAL FIBRILLATION (427.31 | I48.91) CAD (CORONARY ARTERY DISEASE) (414.00 | I25.10) Surgical History Surgical History: pacemaker Family History Relations & Conditions If Any: BROTHER FH: lung cancer Psychosocial History Services at Home: NONE Smoking Status: Never Smoked ETOH Use: denies use Illicit Drug Use: denies illicit drug use Exam & Diagnostic Data Last 24 Hrs of Vital Signs/I&O Vital Signs Date Time Temp Pulse Resp B/P B/P Pulse O2 O2 Flow FiO2 Mean Ox Delivery Rate 07/11 1421 97.5 70 20 107/67 96 Room Air 07/11 0903 80 108/60 07/11 0800 96 Room Air 07/11 0623 97.4 79 20 102/59 96 07/10 2200 Room Air 07/10 2200 97.8 68 20 112/64 95 Nasal 2.0L Cannula Intake & Output 07/11 1600 07/11 0800 07/11 0000 Intake Total 480 1200 0 Output Total 701 350 Balance -221 850 0 Intake, IV 0 0 Intake, Oral 480 1200 0 Number 0 0 Bowel Movements Output, Stool 1 Output, Urine 700 350 Physical Exam General Appearance: no apparent distress, alert, awake, comfortable Head: atraumatic, normal appearance Eyes: Bilateral: PERRL. Neck: supple, JVD Respiratory: chest non-tender, no respiratory distress, absent breath sounds at the right lung base Cardiovascular: irregularly irregular Gastrointestinal: normal bowel sounds, soft, non-tender Extremities: no edema Skin: intact, normal color, warm/dry Last 48 Hrs of Labs/Saud: Laboratory Tests 07/11/17 0745: Anion Gap 7, Estimated GFR 44 L, BUN/Creatinine Ratio 19.3, CBC w Diff NO MAN DIFF REQ, RBC 2.50 L, MCV 102.1 H, MCH 32.5 H, MCHC 31.8 L, RDW 16.8 H, MPV 8.6, Gran % 77.0 H, Lymphocytes % 11.2 L, Monocytes % 9.7 H, Eosinophils % 1.9, Basophils % 0.2, Absolute Granulocytes 4.7, Absolute Lymphocytes 0.7 L, Absolute Monocytes 0.6, Absolute Eosinophils 0.1, Absolute Basophils 0 07/10/17 0615: Anion Gap 9, Estimated GFR 41 L, BUN/Creatinine Ratio 18.1, CBC w Diff NO MAN DIFF REQ, RBC 2.56 L, MCV 102.0 H, MCH 33.2 H, MCHC 32.5 L, RDW 17.1 H, MPV 8.9, Gran % 65.5, Lymphocytes % 17.9 L, Monocytes % 12.7 H, Eosinophils % 3.1, Basophils % 0.8, Absolute Granulocytes 2.8, Absolute Lymphocytes 0.8 L, Absolute Monocytes 0.5, Absolute Eosinophils 0.1, Absolute Basophils 0 Diagnostic Data CXR Results Persistent right hydropneumothorax Other Results ECHO: Normal size left ventricle. Mild concentric left ventricular hypertrophy. Abnormal septal motion consistent with an intraventricular conduction defect. No other obvious regional wall motion abnormalities. Normal left ventricular ejection fraction visually estimated at 55%. Right ventricle at upper limits of normal. Severe right atrial dilatation. Pacemaker wire in the right heart. Mild left atrial dilatation. Trace mitral regurgitation. Trace aortic regurgitation. Severe tricuspid regurgitation. No evidence of pulmonary hypertension. Left pleural effusion. Markedly dilated inferior vena cava. Assessment/Plan Impression/Plan: 1. Recurrent right pleural effusion, s/p thoracentesis with 1800 ml removed, transudate. The etiology of the pleural effusion remains unclear and requires further workup. This could be related to asymmetric finding overload however this is less likely, noting the pleural effusion has been present for a minimum of 4 months time. He also has been asymptomatic from a pulmonary perspective although he does have a history of dementia and is a poor historian. 2. Persistent right hydropneumothorax. 3. Atrial fibrillation. 4. History of hypertension. Recommendations: * Check a noncontrast CT scan of the chest, abdomen and pelvis to look for other etiologies of a transudate of effusion. * Continue Lasix as per cardiology. * Will consider the possibility of a VQ scan, however this would likely a difficult to interpret Erasmo the patient's current right-sided pleural effusion, and there was no evidence of pulmonary hypertension on echocardiogram. * Check an ambulatory oxygen saturation. * Continue DVT prophylaxis at all times. * I will discuss the plan of care with CT surgery regarding the possibility of a Pleurx catheter depending upon the results of scanning. * Thank you for the consult. I will follow up the CT scanning results and provide further recommendations as necessary. Consult Acknowledgment - Thank you for your consult request."
[2017-07-11 21:59] VITALS: BP 128/74
[2017-07-12 06:52] VITALS: BP 121/81
--- NOTE | 2017-07-12 07:23 | PN- Housestaff ---
Bc RECIO,Beth 07/12/17 0722: Subjective Follow-up For: 1 acute decompensation of HFpEF 2 Pneumothorax s/p thoracentesis 3 atrial fibrillation 4 Reaccumulated loculated pleural effusion Subjective: seen and examined Appears much more active today. Able to make it to the commode. Denies any shortness of breath, chest pain. Review of Systems Constitutional: Reports: see HPI. Comments: ROS negative except the above Objective Last 24 Hrs of Vital Signs/I&O Vital Signs Date Time Temp Pulse Resp B/P B/P Pulse O2 O2 Flow FiO2 Mean Ox Delivery Rate 07/12 0652 97.4 82 22 121/81 93 Room Air 07/11 2159 97.9 78 19 128/74 97 Room Air 07/11 1600 Room Air 07/11 1421 97.5 70 20 107/67 96 Room Air 07/11 0903 80 108/60 07/11 0800 96 Room Air Intake & Output 07/12 0800 07/12 0000 07/11 1600 Intake Total 480 480 Output Total 300 200 701 Balance -300 280 -221 Intake, Oral 480 480 Output, Stool 1 Output, Urine 300 200 700 Physical Exam General Appearance: Alert, Oriented X3, Cooperative Skin: No Breakdown, scratch hardin on hands Skin Temp/Moisture Exam: Warm/Dry HEENT: Atraumatic, PERRLA, EOMI Neck: Supple Cardiovascular: Normal S1, Normal S2 Lungs: Normal Air Movement, decreased breath sounds throughout on the right side Abdomen: Normal Bowel Sounds, Soft, No Tenderness Neurological: Normal Speech, Normal Tone Extremities: No Clubbing, No Cyanosis, No Edema Vascular: Normal Pulses Current Medications: Current Medications Sig/Edvin Start time Last Medication Dose Route Stop Time Status Admin Cholecalciferol 1,000 IU DAILY 07/05 1000 AC 07/12 PO 1001 Ferrous Sulfate 325 MG DAILY 07/05 1000 AC 07/12 PO 1001 Finasteride 5 MG DAILY 07/05 1000 AC 07/12 PO 1001 Furosemide 40 MG DAILY 07/09 1530 AC 07/12 PO 1001 Gabapentin 100 MG TID 07/05 1000 AC 07/12 PO 1001 Heparin Sodium 5,000 UNIT Q8 07/05 06 AC 07/12 (Porcine) [place] 0649 Levothyroxine Sodium 0.075 MG DAILY AC 07/06 07 AC 07/12 PO 0651 Omeprazole 40 MG DAILY AC 07/05 0700 AC 07/12 PO 0650 Tamsulosin HCl 0.4 MG DAILY 07/08 1000 AC 07/12 PO 1001 Last 24 Hrs of Lab/Saud Results Last 24 Hrs of Labs/Mics: Laboratory Tests 07/12/17 0750: Anion Gap 7, Estimated GFR 48 L, BUN/Creatinine Ratio 20.7 Assessment/Plan Assessment: Patient is a 87 YO M with PMH significant for CAD status post onto plasty, chronic A.fib status post permanent pacemaker - OFF AC due to GI bleed, prostate cancer with indwelling Little catheter (1 yr ago), Adenosine stress test 2010 with TID, infrarenal 3.5 cm abdominal aneurysm, hypertension, hyperlipidemia, dementia presented with concerns of peripheral edema and elevated blood pressure. At admission is noted to have elevated proBNP with elevated TSH. Problem list 1. Acute decompensated heart failure with preserved ejection fraction 2. Transudative Pleural effusion status post thoracentesis 3. Exvacuo hydropneumothorax s/p thoracentesis 4. Reaccumulated Loculated right sided pleural effusion with mild ascites ( normal Albumin) 5. Prostate cancer with indwelling little catheter - asymptomatic pyuria 6. ? Benign prostatic hypertrophy 7. Hypothyrodism 8. VIRGILIO on CKD Plan Acute decompensated heart failure with preserved ejection fraction Elevated ProBNP with dyspnea on exertion. Dialysis with IV Lasix 40. Converted back to his home regimen 40 mg oral. Currently stable. Cardiology on board. Exvacuo hydropneumothorax s/p thoracentesis Patient did have hydropneumothorax due to decreased reexpansion of the lung after tapping. It remained stable over the past few days, f/b reaccumulation of pleural fluid. CT scan of the chest/abdomen/pelvis did show pleural effusion with small ascites. Pulmonology consulted with concerns for requirement of 2 weeks to prevent further episodes. No indication for chest tube at this point. Albumin within normal limits. Comfortable on room air and able to walk. * We will try to obtain ambulatory saturations * Continue Lasix * Possible Pleurx cath placement to this admission Prostate cancer with indwelling little catheter - asymptomatic pyuria He had prostate cancer followed by radiation therapy and chronic indwelling Little catheter for the past 1 year. The reason behind indwelling Little is unclear at the moment. Asymptomatic pyuria with urine cultures growing Escherichia coli and Serratia. * Continue with Little for now. * Continue tamsulosin 0.4 mg and finasteride 5 mg daily * will communicate with family Hypothyroidism He had an elevated TSH with normal total T3 and free T4. Consistent with subclinical hypothyroidism. His levothyroxine dose increased from 50-75 g daily. * We will repeat TSH, T3 and T4 tomorrow VIRGILIO on CKD Baseline creatinine 1.4 - 1.6. Present with creatinine of 1.4 however after diuresis worsened to 1.8. Intraoperative down to baseline 1.4 now. DVT prophylaxis Subcutaneous heparin CODE STATUS Full code Problem List: 1. Fluid overload 2. Pleural effusion 3. Weakness 4. Dementia 5. CHF (congestive heart failure) Pain Ratin Pain Location: n/a Pain Goal: Pain 4 or less Pain Plan: tylenol prn Tomorrow's Labs & Rationales: none Dominique Meng MD 07/12/17 1254: Attending MD Review Statement Attending Statement Attending MD Statement: examined this patient, discuss w/resident/PA/AERIAL APPLICATOR PILOT, agreed w/resident/PA/AERIAL APPLICATOR PILOT, reviewed EMR data (avail), discussed with nursing, discussed with case mgmt, reviewed images, amended to note Attending Assessment/Plan: Patient seen and examined, denies any complaints. Denies feeling sob, no pain. Not requiring any O2. Vital Signs Date Time Temp Pulse Resp B/P B/P Pulse O2 O2 Flow FiO2 Mean Ox Delivery Rate 07/12 1001 97.4 82 22 121/81 07/12 0800 95 Room Air Room Air 07/12 0652 97.4 82 22 121/81 93 Room Air 07/11 2159 97.9 78 19 128/74 97 Room Air 07/11 1600 Room Air 07/11 1421 97.5 70 20 107/67 96 Room Air on exam; awake, nad. cv; s1,s2, rrr resp; decreased bs at right base. abd; soft, nt, bs+ ext; no edema. Laboratory Tests 07/12 0750 Chemistry Sodium (137 - 145 mmol/L) 135 L Potassium (3.5 - 5.1 mmol/L) 4.5 Chloride (98 - 107 mmol/L) 94 L Carbon Dioxide (22 - 30 mmol/L) 35 H Anion Gap (5 - 16) 7 BUN (9 - 20 mg/dL) 29 H Creatinine (0.7 - 1.2 mg/dL) 1.4 H Estimated GFR (>60 ml/min) 48 L BUN/Creatinine Ratio (7 - 25 %) 20.7 A/P; 87 y/o M with pmh sig for atrial fibrillationOFF Xeralto dut to GI bleed currently not on any anticoagulation secondary to GI bleed, hypertension, prostate cancer, ? AAA repair hyperlipidemia, coronary artery disease, dementia, CHF, pacemaker in place, indwelling Little admitted with acute on chronic diastolic congestive heart failure, pleural effusion status post thoracentesis, developed pneumothorax. CT chest abdomen and pelvis showed hydropneumothorax as well as moderate size right-sided pleural effusion. Will discuss with pulmonology about further options. Patient did receive thoracentesis during this admission which looked transudate. Patient currently on oral Lasix. Creatinine at baseline. Please clarify if he has chronic indwelling Little catheter and indication for that. Continue the rest of the management. Patient on heparin subcutaneous for DVT prophylaxis. PT is reordered for disposition planning.
--- NOTE | 2017-07-12 09:55 | PN- Pulmonary ---
Objective Current Medications: Current Medications Sig/Edvin Start time Last Medication Dose Route Stop Time Status Admin Cholecalciferol 1,000 IU DAILY 07/05 1000 AC 07/11 PO 0903 Ferrous Sulfate 325 MG DAILY 07/05 1000 AC 07/11 PO 0903 Finasteride 5 MG DAILY 07/05 1000 AC 07/11 PO 0903 Furosemide 40 MG DAILY 07/09 1530 AC 07/11 PO 0903 Gabapentin 100 MG TID 07/05 1000 AC 07/11 PO 2131 Heparin Sodium 5,000 UNIT Q8 07/05 0600 AC 07/12 (Porcine) SC 0649 Levothyroxine Sodium 0.075 MG DAILY AC 07/06 0700 AC 07/12 PO 0651 Omeprazole 40 MG DAILY AC 07/05 0700 AC 07/12 PO 0650 Tamsulosin HCl 0.4 MG DAILY 07/08 1000 AC 07/11 PO 0903 Vital Signs & I&O Last 24 Hrs of Vitals and I&O: Vital Signs Date Time Temp Pulse Resp B/P B/P Pulse O2 O2 Flow FiO2 Mean Ox Delivery Rate 07/12 0652 97.4 82 22 121/81 93 Room Air 07/11 2159 97.9 78 19 128/74 97 Room Air 07/11 1600 Room Air 07/11 1421 97.5 70 20 107/67 96 Room Air Intake & Output 07/12 1600 07/12 0800 07/12 0000 Intake Total 80 480 Output Total 301 200 Balance -221 280 Intake, Oral 80 480 Number 1 Bowel Movements Output, Stool 1 Output, Urine 300 200 Physical Exam General Appearance: no apparent distress, alert, awake, comfortable Head: atraumatic, normal appearance Eyes: Bilateral: PERRL. Neck: supple, JVD Respiratory: chest non-tender, no respiratory distress, absent breath sounds at the right lung base Cardiovascular: irregularly irregular Gastrointestinal: normal bowel sounds, soft, non-tender Extremities: no edema Skin: intact, normal color, warm/dry Results Last 24 Hrs of Lab Results: Laboratory Tests 07/12/17 0750: Anion Gap 7, Estimated GFR 48 L, BUN/Creatinine Ratio 20.7 Last 24 Hrs of Micro Results: Urine culture positive for Serratia and Escherichia coli Impression/Plan Impression/Plan Impression/Plan: 1. Recurrent right pleural effusion, possibly loculated, s/p thoracentesis with 1800 ml removed, transudative effusion. The etiology of the pleural effusion remains unclear and requires further workup. This could be related to asymmetric fluid overload however this is less likely, noting the pleural effusion has been present for a minimum of 4 months time. He also has been asymptomatic from a pulmonary perspective although he does have a history of dementia and is a poor historian. 2. Persistent right hydropneumothorax, secondary to chronic effusion. 3. Atrial fibrillation. 4. History of hypertension. Recommendations: * Check a noncontrast CT scan of the chest, abdomen and pelvis to look for other etiologies of a transudate of effusion. * Continue Lasix as per cardiology. * Will consider the possibility of a VQ scan if the patient does not improve, however this would likely a difficult to interpret Erasmo the patient's current right-sided pleural effusion, and there was no evidence of pulmonary hypertension on echocardiogram. * Check an ambulatory oxygen saturation. * Continue DVT prophylaxis at all times. * I will discuss the plan of care with CT surgery regarding the possibility of a Pleurx catheter depending upon the results of scanning. * DVT prophylaxis at all times.
--- NOTE | 2017-07-12 12:50 | CT SCAN REPORT ---
EXAMINATION: CT ABDOMEN CHEST, AND PELVIS WITHOUT CONTRAST CLINICAL INFORMATION: Recurrent pleural effusion COMPARISON: 04/08/2017 TECHNIQUE: Multidetector volumetric imaging was performed from the superior aspect of the liver through the pubic symphysis. Sagittal and coronal reformatted images were obtained on the technologist's workstation. DLP: 556 mGy-cm FINDINGS: LUNGS: Known right-sided pneumothorax appears similar. Extensive consolidation right lower lobe and layering moderate-sized pleural effusion probably subpulmonic compressive atelectasis right lower lobe. Smaller parenchymal and pleural disease left base without pneumothorax. No mass. Diffuse increased lung markings a minor subpleural blebs both apices. Scattered tiny cysts. MEDIASTINUM: Mild prominence of the pulmonary arteries consistent with nonspecific pulmonary hypertension. Pacer device in place unchanged. Severe coronary atherosclerosis. Subcentimeter reactive appearing mediastinal lymph nodes. No pericardial fluid. LIVER, GALLBLADDER, AND BILIARY TREE: Known cysts right and left lobes stable. No new findings. Clips consistent cholecystectomy. No gross biliary dilatation. PANCREAS: Unremarkable. SPLEEN: Unremarkable. ADRENAL GLANDS: Unremarkable. KIDNEYS AND URETERS: The kidneys are normal in size, shape, and attenuation. No hydronephrosis, hydroureter, or calculi seen. No perinephric stranding. BLADDER: Unremarkable. Cortes catheter in place. GASTROINTESTINAL TRACT: The small and large bowel are unremarkable. The appendix is unremarkable. ABDOMINAL WALL: No significant hernia is appreciated. LYMPH NODES: Normal. VASCULAR: Severe atherosclerosis and ectasia of aorta stable similar to baseline. PELVIC VISCERA: Brachytherapy seeds from prostate gland noted incidentally. OSSEOUS STRUCTURES: Unremarkable. Moderate amount of simple ascites right abdomen pelvis. IMPRESSION: 1. Moderate-sized right-sided hydropneumothorax stable. Moderate amount of thrombus subpulmonic pleural effusion noted. 2. Ascites of moderate severity of which appear simple. No discrete fluid collection. 3. Hepatic cysts stable. 4. Other chronic finding stable on this limited nonenhanced study.
[2017-07-12 14:09] VITALS: BP 110/70
[2017-07-12 21:50] VITALS: BP 110/58
[2017-07-13 06:24] VITALS: BP 110/60
--- NOTE | 2017-07-13 07:18 | PN- Housestaff ---
Bc RECIO,Beth 07/13/17 0718: Subjective Follow-up For: 1 acute decompensation of HFpEF 2 Pneumothorax s/p thoracentesis 3 atrial fibrillation 4 Reaccumulated transudative loculated pleural effusion Subjective: Seen and examined Patient is confused today. He is oriented to person. Denies any overnight issues. He desaturated to 86% requiring 2L oxygen. Review of Systems Constitutional: Reports: see HPI. Objective Last 24 Hrs of Vital Signs/I&O Vital Signs Date Time Temp Pulse Resp B/P B/P Pulse O2 O2 Flow FiO2 Mean Ox Delivery Rate 07/13 0624 98.2 75 22 110/60 92 Room Air 07/12 2150 98.0 76 110/58 93 Room Air 07/12 1409 98.1 71 16 110/70 92 Room Air 07/12 1001 97.4 82 22 121/81 07/12 0800 95 Room Air Room Air Intake & Output 07/13 0800 07/13 0000 07/12 1600 Intake Total 120 120 240 Output Total 350 400 Balance -230 -280 240 Intake, Oral 120 120 240 Output, Urine 350 400 Physical Exam General Appearance: Alert, Cooperative Skin: No Rashes Skin Temp/Moisture Exam: Warm/Dry HEENT: Atraumatic, PERRLA Neck: Supple Cardiovascular: Normal S1, Normal S2 Lungs: Clear to Auscultation, Normal Air Movement Abdomen: Normal Bowel Sounds, Soft, No Tenderness Neurological: Normal Speech, Sensation Intact Extremities: No Clubbing, No Cyanosis, edema of upper extremities. distended belly Current Medications: Current Medications Sig/Edvin Start time Last Medication Dose Route Stop Time Status Admin Cholecalciferol 1,000 IU DAILY 07/05 1000 AC 07/13 PO 0858 Ferrous Sulfate 325 MG DAILY 07/05 1000 AC 07/13 PO 0858 Finasteride 5 MG DAILY 07/05 1000 AC 07/13 PO 0858 Furosemide 40 MG 7:30 AM, & 4:30 PM 07/13 1630 AC PO Furosemide 60 MG ONCE ONE 07/13 1115 DC 07/13 IV 07/13 1116 1417 Furosemide 40 MG DAILY 07/09 1530 DC 07/13 PO 0858 Gabapentin 100 MG TID 07/05 1000 DC 07/13 PO 0858 Heparin Sodium 5,000 UNIT Q8 07/05 0600 AC 07/13 (Porcine) SC 1357 Levothyroxine Sodium 0.075 MG DAILY AC 07/06 0700 AC 07/13 PO 0543 Omeprazole 40 MG DAILY AC 07/05 0700 AC 07/13 PO 0543 Patient Medication 1 ED ONE ONE 07/13 1030 DC 07/13 Teaching ED 07/13 1031 1417 Tamsulosin HCl 0.4 MG DAILY 07/08 1000 AC 07/13 PO 0858 Assessment/Plan Assessment: Patient is a 87 YO M with PMH significant for CAD status post onto plasty, chronic A.fib status post permanent pacemaker - OFF AC due to GI bleed, prostate cancer with indwelling Little catheter (1 yr ago), Adenosine stress test 2010 with TID, infrarenal 3.5 cm abdominal aneurysm, hypertension, hyperlipidemia, dementia presented with concerns of peripheral edema and elevated blood pressure. At admission is noted to have elevated proBNP with elevated TSH. Problem list 1. Acute decompensated heart failure with preserved ejection fraction 2. Transudative Pleural effusion status post thoracentesis 3. Exvacuo hydropneumothorax s/p thoracentesis 4. Reaccumulated Loculated right sided pleural effusion with mild ascites ( normal Albumin) 5. Prostate cancer with indwelling little catheter - asymptomatic pyuria 6. ? Benign prostatic hypertrophy 7. Hypothyrodism 8. VIRGILIO on CKD Plan Acute decompensated heart failure with preserved ejection fraction Elevated ProBNP with dyspnea on exertion. Dialysis with IV Lasix 40. Converted back to his home regimen 40 mg oral. Currently stable. Cardiology on board. Exvacuo hydropneumothorax s/p thoracentesis Patient did have hydropneumothorax due to decreased reexpansion of the lung after tapping. It remained stable over the past few days, f/b reaccumulation of pleural fluid. CT scan of the chest/abdomen/pelvis did show pleural effusion with small ascites. Pulmonology consulted with concerns of recurrent effusion. No indication for chest tube at this point. Albumin within normal limits. Comfortable on room air and able to walk. * We will try to obtain ambulatory saturations * Continue Lasix * Possible Pleurx cath placement to this admission Anasarca Patient had mild ascites, recurrent effusion, increased fluid accumulation in the upper extremities. Per imaging showing increase in hepatic vein pressures, normal albumin, negative cultures, transudative picture in the pleural fluid point towards heart being the culprit. * IV lasix 60mg once, with 40mg oral today * we will start lasix 40mg BID depending on his BUN/Cr. Prostate cancer with indwelling little catheter - asymptomatic pyuria He had prostate cancer followed by radiation therapy and chronic indwelling Little catheter for the past 1 year. The reason behind indwelling Little is unclear at the moment. Possibly secondary to BPH. Asymptomatic pyuria with urine cultures growing Escherichia coli and Serratia. * Continue with Little for now. * Continue tamsulosin 0.4 mg and finasteride 5 mg daily * will communicate with family Hypothyroidism He had an elevated TSH with normal total T3 and free T4. Consistent with subclinical hypothyroidism. His levothyroxine dose increased from 50-75 g daily. * We will repeat TSH, T3 and T4 tomorrow VIRGILIO on CKD Baseline creatinine 1.4 - 1.6. Present with creatinine of 1.4 however after diuresis worsened to 1.8. Intraoperative down to baseline 1.4 now. DVT prophylaxis Subcutaneous heparin CODE STATUS Full code Problem List: 1. Fluid overload 2. Pleural effusion 3. Weakness 4. Acute respiratory failure 5. CHF (congestive heart failure) Pain Ratin Pain Location: n/a Pain Goal: Pain 4 or less Pain Plan: n/a Tomorrow's Labs & Rationales: bep to monitor BUN/Cr [employer] RECIO,Dominique 07/13/17 1200: Attending MD Review Statement Attending Statement Attending MD Statement: examined this patient, discuss w/resident/PA/CRITICAL CARE NURSE PRACTITIONER, agreed w/resident/PA/CRITICAL CARE NURSE PRACTITIONER, reviewed EMR data (avail), discussed with nursing, discussed with case mgmt, reviewed images, amended to note Attending Assessment/Plan: Patient seen and examined, did not want to do any conversation today. He said that he's tired. He currently denies any pain or shortness of breath. He just wants to get out of here. Vital Signs Date Time Temp Pulse Resp B/P B/P Pulse O2 O2 Flow FiO2 Mean Ox Delivery Rate 07/13 0858 98.2 75 22 110/60 07/13 0624 98.2 75 22 110/60 92 Room Air 07/12 2150 98.0 76 110/58 93 Room Air 07/12 1409 98.1 71 16 110/70 92 Room Air on exam; awake, nad. cv; s1,s2, rrr resp; decrease bs at right base. ext: no edema. no labs. A/P: 87 y/o M with pmh sig for atrial fibrillationOFF Xeralto dut to GI bleed currently not on any anticoagulation secondary to GI bleed, hypertension, prostate cancer, ? AAA repair hyperlipidemia, coronary artery disease, dementia, CHF, pacemaker in place, indwelling Little admitted with acute on chronic diastolic congestive heart failure, pleural effusion status post thoracentesis, developed pneumothorax. CT chest abdomen and pelvis showed hydropneumothorax as well as moderate size right-sided pleural effusion. Patient has been followed by pulmonology as well as CT surgery. As discussed with pulmonology, this is a chronic process and patient asymptomatic therefore does not need any further intervention such as Pleurx catheter. Discussed with cardiology who recommends to increase the dose of Lasix. Patient will receive IV Lasix today. Please check BEP today and tomorrow. Patient has chronic indwelling Little catheter. Continue the rest of the management and patient on heparin subcutaneous for DVT prophylaxis. Discussed with over the phone.
--- NOTE | 2017-07-13 12:24 | PN- Cardiology ---
Subjective Subjective: * No complaints. Resting comfortably. * atrial fibrillation * Persistent pleural effusion on CT scan * creatinine 1.4 * H/H 8.3/25.5 Objective Vital Signs and I&Os Vital Signs Date Time Temp Pulse Resp B/P B/P Pulse O2 O2 Flow FiO2 Mean Ox Delivery Rate 07/13 0858 98.2 75 22 110/60 07/13 0624 98.2 75 22 110/60 92 Room Air 07/12 2150 98.0 76 110/58 93 Room Air 07/12 1409 98.1 71 16 110/70 92 Room Air Intake & Output 07/13 1600 07/13 0800 07/13 0000 07/12 1600 07/12 0800 07/12 0000 Intake Total 120 120 240 80 480 Output Total 350 400 301 200 Balance -230 -280 240 -221 280 Intake, Oral 120 120 240 80 480 Number 1 Bowel Movements Output, Stool 1 Output, Urine 350 400 300 200 Physical Exam: General: WD/WN male in NAD; awake and responsive with decreased memory HEENT: NC/AT, PERRL, EOMI Neck: positive JVD, bilateral carotid bruits L>R Heart: RRR with 2/6 systolic murmur at the RUSB and apex and 2/6 left subclavian bruit Lungs: decreased breath sounds at right base, no crackles Extremities: no leg edema Assessment/Plan Assessment/Plan * This patient has improved renal function with less aggressive diuresis but due to a persistent pleural effusion a trial of more aggressive diuresis is reasonable with careful monitoring of his BUN, creatinine and potassium. Give Lasix 60mg IV x 1 dose followed by Lasix 40mg PO BID. It should be noted that evacuating pleural effusions via diuresis tends to be difficult although it can be helpful in preventing reaccumulation. This patient should be off all drugs known to cause fluid retention which would include Gabapentin. I would stop this drug. * This patient should have an anemia workup. Consider Epogen to treat his anemia. Continue telemetry? No
[2017-07-13 14:43] VITALS: BP 108/78
[2017-07-13 22:12] VITALS: BP 106/70
[2017-07-13 23:21] LABS: ABSOLUTE BASOPHIL COUNT 0 /CUMM (0.0-0.2); ABSOLUTE EOSINOPHIL COUNT 0 /CUMM (0.0-0.7); ABSOLUTE GRANULOCYTE CT 7.4 /CUMM (1.4-6.5); ABSOLUTE LYMPH COUNT 0.6 /CUMM (1.2-3.4); ABSOLUTE MONOCYTE COUNT 0.7 /CUMM (0.10-0.60); BASOPHIL % 0.1 % (0.0-2.0); EOSINOPHIL % 0.1 % (0-5); HEMATOCRIT 22.8 % (42-52); MEAN CORPUSCULAR HGB 34.9 PG (27.0-31.0); MEAN CORPUSCULAR HGB CONC 33.6 G/DL (33.0-37.0); MEAN CORPUSCULAR VOLUME 104.1 FL (80.0-94.0); MEAN PLATELET VOLUME 8.8 FL (7.4-10.4); PLATELET COUNT 142 /CUMM (130-400); RBC DISTRIBUTION WIDTH 16.1 % (11.5-14.5); RED BLOOD CELL CT 2.19 /CUMM (4.70-6.10); WHITE BLOOD CELL COUNT 8.8 /CUMM (4.8-10.8)
[2017-07-13 23:22] LABS: GRANULOCYTE % 84.7 % (42.2-75.2)
[2017-07-14 06:39] VITALS: BP 100/58
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
--- NOTE | 2017-07-14 08:22 | RADIOLOGY REPORT ---
EXAMINATION: XR PORTABLE CHEST CLINICAL INFORMATION: Hydropneumothorax status post recent thoracentesis. Fevers and oxygen requirement. Evaluate for worsening pneumothorax and effusion. COMPARISON: Recent chest radiograph, including 07/07/2017 and 07/11/2017. TECHNIQUE: Portable frontal view of the chest was obtained. FINDINGS: The right-sided pneumothorax and pleural effusion occupy approximately 50% of the volume of the right hemithorax, similar compared to the recent comparison radiographs. The overall size of the pneumothorax is not appreciably changed. The visceral pleural line projects 1.1 cm below the inferior margin of the right second rib, compared to 1.2 cm on 07/11/2017. Cardiomegaly with single lead pacemaker in place. No acute pulmonary edema. Small left pleural effusion and left lower lobe opacity remain unchanged. Also, the opacity from atelectasis and/or consolidation in the right lower lobe has not significantly changed. No acute skeletal findings. IMPRESSION: The findings in the chest remain similar to those observed on 07/11/2017.
[2017-07-14 11:56] VITALS: BP 128/54
[2017-07-14 13:09] LABS: ABSOLUTE BASOPHIL COUNT 0 /CUMM (0.0-0.2); ABSOLUTE EOSINOPHIL COUNT 0 /CUMM (0.0-0.7); ABSOLUTE GRANULOCYTE CT 8.2 /CUMM (1.4-6.5); ABSOLUTE LYMPH COUNT 0.4 /CUMM (1.2-3.4); ABSOLUTE MONOCYTE COUNT 0.5 /CUMM (0.10-0.60); BASOPHIL % 0.1 % (0.0-2.0); EOSINOPHIL % 0.1 % (0-5); GRANULOCYTE % 90.4 % (42.2-75.2); MEAN PLATELET VOLUME 9.1 FL (7.4-10.4); PLATELET COUNT 162 /CUMM (130-400); RBC DISTRIBUTION WIDTH 15.9 % (11.5-14.5); WHITE BLOOD CELL COUNT 9.1 /CUMM (4.8-10.8)
[2017-07-14 13:42] LABS: HEMATOCRIT 27.5 % (42-52); RED BLOOD CELL CT 2.65 /CUMM (4.70-6.10)
[2017-07-14 13:43] LABS: MEAN CORPUSCULAR HGB 34.1 PG (27.0-31.0); MEAN CORPUSCULAR HGB CONC 32.8 G/DL (33.0-37.0); MEAN CORPUSCULAR VOLUME 103.8 FL (80.0-94.0)
[2017-07-14 14:51] VITALS: BP 114/50
--- NOTE | 2017-07-14 20:56 | PN- Cardiology ---
Subjective Subjective: * No complaints of shortness of breath. * chest X-ray is unchanged * atrial fibrillation * Persistent pleural effusion on CT scan * creatinine 1.6 * H/H improved to 9.0/27.5 Objective Vital Signs and I&Os Vital Signs Date Time Temp Pulse Resp B/P B/P Pulse O2 O2 Flow FiO2 Mean Ox Delivery Rate 07/14 1451 98.5 95 20 114/50 94 Room Air 07/14 1156 98.8 70 20 128/54 95 Room Air 07/14 0822 74 100/58 07/14 0639 97.4 74 22 100/58 93 07/14 0000 94 Nasal 2.0L Cannula 07/13 2311 99.8 07/13 2212 99.8 69 18 106/70 94 Nasal 2.0L Cannula Intake & Output 07/14 1600 07/14 0800 07/14 0000 07/13 1600 07/13 0800 07/13 0000 Intake Total 250 510 480 120 120 Output Total 584 543 2215 350 400 Balance -500 50 -615 480 -230 -280 Intake, IV 10 Intake, Oral 250 500 480 120 120 Number 1 1 Bowel Movements Output, Urine 253 116 7186 350 400 Physical Exam: General: WD/WN male in NAD; awake and responsive with decreased memory HEENT: NC/AT, PERRL, EOMI Neck: positive JVD, bilateral carotid bruits L>R Heart: RRR with 2/6 systolic murmur at the RUSB and apex and 2/6 left subclavian bruit Lungs: decreased breath sounds at right base, no crackles Extremities: no leg edema Assessment/Plan Assessment/Plan * This patient has a slightly worse creatinine with more aggressive diuresis with little improvment in his pleural effusion. The patient does not have any verbalized complaints but appears a bit more tired out than before and cannot offer a cogent history due to his dementia. Continue Lasix at 40mg BID with continued monitoring of his renal function. Consideration can be given to a PleurX catheter. Agree with stopping Gabapentin. * This patient should have an anemia workup. Consider Epogen to treat his anemia. Continue telemetry? No
[2017-07-14 22:16] VITALS: BP 110/50
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
[2017-07-15 07:29] VITALS: BP 104/56
[2017-07-15 08:12] LABS: ABSOLUTE BASOPHIL COUNT 0 /CUMM (0.0-0.2); ABSOLUTE EOSINOPHIL COUNT 0 /CUMM (0.0-0.7); ABSOLUTE GRANULOCYTE CT 5.4 /CUMM (1.4-6.5); ABSOLUTE LYMPH COUNT 0.5 /CUMM (1.2-3.4); ABSOLUTE MONOCYTE COUNT 0.5 /CUMM (0.10-0.60); BASOPHIL % 0.3 % (0.0-2.0); EOSINOPHIL % 0.2 % (0-5); MEAN PLATELET VOLUME 9.2 FL (7.4-10.4); PLATELET COUNT 123 /CUMM (130-400); RBC DISTRIBUTION WIDTH 16.1 % (11.5-14.5); WHITE BLOOD CELL COUNT 6.4 /CUMM (4.8-10.8)
[2017-07-15 09:06] LABS: HEMATOCRIT 23.2 % (42-52); RED BLOOD CELL CT 2.26 /CUMM (4.70-6.10)
[2017-07-15 09:16] LABS: GRANULOCYTE % 83.9 % (42.2-75.2)
--- NOTE | 2017-07-15 12:08 | PN- Endocrinology ---
Assessment/Plan Endoscopy Assessment: 87 yo M pmhx of HTN, A. fib s/p Pacemaker and AICD, prostate cancer, CAD, AAA repair, dementia, CKD, dementia presenting for worsening LE edema. He has had hypothyroidism and was on Levothyroxine 50 mcg daily. On admission, repeat TSH was 25.3, free T4 1.1 and TT3 1.20. Levothyroxine was increased to 75 mcg daily on 07/05/2017. Repeat TFT on 07/08/2017-- TSH 18.9 and free t4 1.29. Repeat TFT on 07/14/2017-- TSH 10.4 and free T4 1.91. Plan: continue Levothyroxine 75 mcg daily for nowl; repeat TFT in 2-3 weeks; f/u in office after discharge. Subjective Subjective: He has no special complaints. Objective Last 24 Hrs of Vital Signs/I&O Vital Signs Date Time Temp Pulse Resp B/P B/P Pulse O2 O2 Flow FiO2 Mean Ox Delivery Rate 07/15 1023 81 102/64 07/15 0800 94 Nasal 2.0L Cannula 07/15 0729 97.7 70 20 104/56 92 Nasal 3.0L Cannula 07/15 0000 93 Nasal 2.0L Cannula 07/14 2216 98.2 80 20 110/50 93 Nasal 2.0L Cannula 07/14 1451 98.5 95 20 114/50 94 Room Air Intake & Output 07/15 1600 07/15 0800 07/15 0000 Intake Total 0 Output Total 450 550 Balance -450 -550 Intake, IV 0 Intake, Oral 0 Number 0 1 Bowel Movements Output, Urine 450 550 Results Pertinent Lab/Saud Results: Laboratory Tests 07/15 07/14 0650 1208 Chemistry Sodium (137 - 145 mmol/L) 136 L Potassium (3.5 - 5.1 mmol/L) 3.9 Chloride (98 - 107 mmol/L) 93 L Carbon Dioxide (22 - 30 mmol/L) 37 H Anion Gap (5 - 16) 7 BUN (9 - 20 mg/dL) 37 H Creatinine (0.7 - 1.2 mg/dL) 1.6 H Estimated GFR (>60 ml/min) 41 L BUN/Creatinine Ratio (7 - 25 %) 23.1 Hematology CBC w Diff NO MAN DIFF REQ MAN DIFF ORDERED WBC (4.8 - 10.8 /CUMM) 6.4 9.1 RBC (4.70 - 6.10 /CUMM) 2.26 L 2.65 L Hgb (14.0 - 18.0 G/DL) 7.8 L 9.0 L Hct (42 - 52 %) 23.2 L 27.5 L MCV (80.0 - 94.0 FL) 103.0 H 103.8 H MCH (27.0 - 31.0 PG) 34.0 H 34.1 H MCHC (33.0 - 37.0 G/DL) 33.0 32.8 L RDW (11.5 - 14.5 %) 16.1 H 15.9 H Plt Count (130 - 400 /CUMM) 123 L 162 MPV (7.4 - 10.4 FL) 9.2 9.1 Gran % (42.2 - 75.2 %) 83.9 H 90.4 H Lymphocytes % (20.5 - 51.1 %) 8.4 L 4.3 L Monocytes % (1.7 - 9.3 %) 7.2 5.1 Eosinophils % (0 - 5 %) 0.2 0.1 Basophils % (0.0 - 2.0 %) 0.3 0.1 Absolute Granulocytes (1.4 - 6.5 /CUMM) 5.4 8.2 H Segmented Neutrophils (42.2 - 75.2 %) 79 H Band Neutrophils (0.0 - 5.0 %) 12 H Absolute Lymphocytes (1.2 - 3.4 /CUMM) 0.5 L 0.4 L Lymphocytes (20.5 - 51.1 %) 4 L Monocytes (1.7 - 9.3 %) 5 Absolute Monocytes (0.10 - 0.60 /CUMM) 0.5 0.5 Absolute Eosinophils (0.0 - 0.7 /CUMM) 0 0 Absolute Basophils (0.0 - 0.2 /CUMM) 0 0 Anisocytosis 1+ 07/14 07/13 0724 2241 Chemistry Sodium (137 - 145 mmol/L) 138 Potassium (3.5 - 5.1 mmol/L) 4.0 Chloride (98 - 107 mmol/L) 94 L Carbon Dioxide (22 - 30 mmol/L) 36 H Anion Gap (5 - 16) 7 BUN (9 - 20 mg/dL) 35 H Creatinine (0.7 - 1.2 mg/dL) 1.6 H Estimated GFR (>60 ml/min) 41 L BUN/Creatinine Ratio (7 - 25 %) 21.9 Magnesium (1.6 - 2.3 mg/dL) 2.1 TSH (0.270 - 4.200 uIU/mL) 10.400 H Free T4 (0.85 - 1.93 ng/dL) 1.91 Hematology CBC w Diff NO MAN DIFF REQ WBC (4.8 - 10.8 /CUMM) 8.8 RBC (4.70 - 6.10 /CUMM) 2.19 L Hgb (14.0 - 18.0 G/DL) 7.7 L Hct (42 - 52 %) 22.8 L MCV (80.0 - 94.0 FL) 104.1 H MCH (27.0 - 31.0 PG) 34.9 H MCHC (33.0 - 37.0 G/DL) 33.6 RDW (11.5 - 14.5 %) 16.1 H Plt Count (130 - 400 /CUMM) 142 MPV (7.4 - 10.4 FL) 8.8 Gran % (42.2 - 75.2 %) 84.7 H Lymphocytes % (20.5 - 51.1 %) 6.7 L Monocytes % (1.7 - 9.3 %) 8.4 Eosinophils % (0 - 5 %) 0.1 Basophils % (0.0 - 2.0 %) 0.1 Absolute Granulocytes (1.4 - 6.5 /CUMM) 7.4 H Absolute Lymphocytes (1.2 - 3.4 /CUMM) 0.6 L Absolute Monocytes (0.10 - 0.60 /CUMM) 0.7 H Absolute Eosinophils (0.0 - 0.7 /CUMM) 0 Absolute Basophils (0.0 - 0.2 /CUMM) 0 07/13 2240 Urines Urinalysis MOD H Urine Color (YEL,AMB,STR) YEL Urine Clarity (CLEAR) CLDY H Urine pH (5.0 - 8.0) 8.5 H Ur Specific [place] (1.001 - 1.035) 1.015 Urine Protein (NEG,<30 MG/DL) NEG Urine Ketones (NEG) NEG Urine Nitrite (NEG) POS H Urine Bilirubin (NEG) NEG Urine Urobilinogen (0.1 - 1.0 EU/dl) 0.2 Ur Leukocyte Esterase (NEG) LARGE H Ur Microscopic SEDIMENT EXAMINED Urine RBC (0 - 5 /HPF) 3-5 Urine WBC (0 - 2 /HPF) 5-10 H Ur Epithelial Cells (NONE,FEW) RARE Urine Crystals 3+ TRIP PHOS H Urine Bacteria (NEG/NONE) MANY H Hyaline Casts (0/LPF) RARE H Urine Hemoglobin (NEG) SMALL H Urine Glucose (N MG/DL) NEG
[2017-07-15] MEDS ORDERED: SULFAMETHOXAZO1 EAC1 PO (13:25)
[2017-07-15 15:15] VITALS: BP 118/60
[2017-07-15] MEDS ORDERED: LASIX40 M1 PO (16:12)
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
--- NOTE | 2017-07-15 22:21 | PN- Cardiology ---
Subjective Subjective: * No complaints. Patient is a poor historian. * atrial fibrillation * Persistent pleural effusion on CT scan * creatinine 1.6 * H/H continues to fall Objective Vital Signs and I&Os Vital Signs Date Time Temp Pulse Resp B/P B/P Pulse O2 O2 Flow FiO2 Mean Ox Delivery Rate 07/15 1515 97.5 65 20 118/60 92 Room Air 07/15 1023 81 102/64 07/15 0800 94 Nasal 2.0L Cannula 07/15 0729 97.7 70 20 104/56 92 Nasal 3.0L Cannula 07/15 0000 93 Nasal 2.0L Cannula Intake & Output 07/15 1600 07/15 0800 07/15 0000 07/14 1600 07/14 0800 07/14 0000 Intake Total 600 0 250 510 Output Total 450 450 550 155 047 8030 Balance 150 -450 -550 -500 50 -615 Intake, IV 0 10 Intake, Oral 600 0 250 500 Number 1 0 1 1 1 Bowel Movements Output, Urine 450 450 550 237 720 7315 Physical Exam: General: WD/WN male in NAD; awake and responsive with decreased memory HEENT: NC/AT, PERRL, EOMI Neck: positive JVD, bilateral carotid bruits L>R Heart: RRR with 2/6 systolic murmur at the RUSB and apex and 2/6 left subclavian bruit Lungs: decreased breath sounds at right base, no crackles Extremities: no leg edema Assessment/Plan Assessment/Plan * This patient has a slightly worse creatinine with more aggressive diuresis with little improvment in his pleural effusion. The patient does not have any verbalized complaints but appears a bit more tired out than before and cannot offer a cogent history due to his dementia. Continue Lasix at 40mg BID with continued monitoring of his renal function. Consideration has been given to a PleurX catheter. Agree with stopping Gabapentin. * This patient should have an anemia workup. Consider Epogen to treat his anemia Continue telemetry? No
[2017-07-15 23:06] VITALS: BP 113/60
[2017-07-16 07:00] VITALS: BP 118/54
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
[2017-07-16 14:42] VITALS: BP 122/60
[2017-07-16 14:59] LABS: ABSOLUTE BASOPHIL COUNT 0 /CUMM (0.0-0.2); ABSOLUTE EOSINOPHIL COUNT 0 /CUMM (0.0-0.7); ABSOLUTE GRANULOCYTE CT 6.8 /CUMM (1.4-6.5); ABSOLUTE LYMPH COUNT 0.5 /CUMM (1.2-3.4); ABSOLUTE MONOCYTE COUNT 0.5 /CUMM (0.10-0.60); BASOPHIL % 0.4 % (0.0-2.0); EOSINOPHIL % 0.1 % (0-5); HEMATOCRIT 26.6 % (42-52); MEAN CORPUSCULAR HGB 36.9 PG (27.0-31.0); MEAN PLATELET VOLUME 9.5 FL (7.4-10.4); PLATELET COUNT 132 /CUMM (130-400); RBC DISTRIBUTION WIDTH 16.2 % (11.5-14.5); RED BLOOD CELL CT 2.45 /CUMM (4.70-6.10); WHITE BLOOD CELL COUNT 7.8 /CUMM (4.8-10.8)
[2017-07-16 15:00] LABS: MEAN CORPUSCULAR VOLUME 108.4 FL (80.0-94.0)
[2017-07-16 15:07] LABS: GRANULOCYTE % 87.2 % (42.2-75.2)
[2017-07-16 23:51] VITALS: BP 105/61
[2017-07-17 07:01] VITALS: BP 121/50
[2017-07-17] MEDS ORDERED: SULFAMETHOXAZO1 EAC1 PO (11:45)
[2017-07-17] MEDS ORDERED: AMOXICILLIN500 M2 PO (11:45)
--- NOTE | 2017-07-17 13:20 | PN- Att Addend ---
Attending Addendum Attending Brief Note Patient seen and examined, offers no complaints but he is currently in [place] and restrained secondary to pulling out lines. Vital Signs Date Time Temp Pulse Resp B/P B/P Pulse O2 O2 Flow FiO2 Mean Ox Delivery Rate 07/17 0856 120/60 07/17 0701 97.6 76 18 121/50 91 Room Air 07/16 2351 97.8 85 20 105/61 92 Room Air 07/16 1600 Room Air 07/16 1442 97.7 74 18 122/60 93 on exam; awake, nad. cv; s1,s2, rrr resp; decrease bs at right base. abd; soft, nt, bs+ ext: no edema. Laboratory Tests 07/16 1340 Hematology CBC w Diff NO MAN DIFF REQ WBC (4.8 - 10.8 /CUMM) 7.8 RBC (4.70 - 6.10 /CUMM) 2.45 L Hgb (14.0 - 18.0 G/DL) 9.0 L Hct (42 - 52 %) 26.6 L MCV (80.0 - 94.0 FL) 108.4 H MCH (27.0 - 31.0 PG) 36.9 H MCHC (33.0 - 37.0 G/DL) 34.0 RDW (11.5 - 14.5 %) 16.2 H Plt Count (130 - 400 /CUMM) 132 MPV (7.4 - 10.4 FL) 9.5 Gran % (42.2 - 75.2 %) 87.2 H Lymphocytes % (20.5 - 51.1 %) 6.4 L Monocytes % (1.7 - 9.3 %) 5.9 Eosinophils % (0 - 5 %) 0.1 Basophils % (0.0 - 2.0 %) 0.4 Absolute Granulocytes (1.4 - 6.5 /CUMM) 6.8 H Absolute Lymphocytes (1.2 - 3.4 /CUMM) 0.5 L Absolute Monocytes (0.10 - 0.60 /CUMM) 0.5 Absolute Eosinophils (0.0 - 0.7 /CUMM) 0 Absolute Basophils (0.0 - 0.2 /CUMM) 0 A/P; 87 y/o M with pmh sig for atrial fibrillationOFF Xeralto dut to GI bleed currently not on any anticoagulation secondary to GI bleed, hypertension, prostate cancer, ? AAA repair hyperlipidemia, coronary artery disease, dementia, CHF, pacemaker in place, indwelling Cortes admitted with acute on chronic diastolic congestive heart failure, pleural effusion status post thoracentesis, developed pneumothorax. CT chest abdomen and pelvis showed hydropneumothorax as well as moderate size right-sided pleural effusion. As discussed with pulmonogist, no indication for pleurX as this is chronic. Patient currently also getting treated for UTI and sputum culture grew Haemophilus therefore we also added ampicillin. He is overall improving and once he is off of restrains, he can likely be discharged home. He has been cleared by physical therapy. His creatinine remained stable on high-dose of Lasix. He's on heparin subcutaneous for DVT prophylaxis.
[2017-07-17 14:48] VITALS: BP 120/70
[2017-07-17 22:26] VITALS: BP 112/60
[2017-07-18 05:45] VITALS: BP 122/60
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
[2017-07-18 15:28] VITALS: BP 118/60
[2017-07-18 19:12] LABS: ABSOLUTE BASOPHIL COUNT 0 /CUMM (0.0-0.2); ABSOLUTE EOSINOPHIL COUNT 0 /CUMM (0.0-0.7); ABSOLUTE GRANULOCYTE CT 5.9 /CUMM (1.4-6.5); ABSOLUTE LYMPH COUNT 0.6 /CUMM (1.2-3.4); ABSOLUTE MONOCYTE COUNT 0.5 /CUMM (0.10-0.60); BASOPHIL % 0.1 % (0.0-2.0); EOSINOPHIL % 0.2 % (0-5); MEAN CORPUSCULAR HGB 39.4 PG (27.0-31.0); MEAN CORPUSCULAR HGB CONC 36.1 G/DL (33.0-37.0); MEAN CORPUSCULAR VOLUME 109.2 FL (80.0-94.0); MEAN PLATELET VOLUME 8.8 FL (7.4-10.4); PLATELET COUNT 140 /CUMM (130-400); RBC DISTRIBUTION WIDTH 16.3 % (11.5-14.5)
[2017-07-19 07:27] VITALS: BP 128/68
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
[2017-07-19 08:26] LABS: ABSOLUTE BASOPHIL COUNT 0 /CUMM (0.0-0.2); ABSOLUTE EOSINOPHIL COUNT 0 /CUMM (0.0-0.7); ABSOLUTE GRANULOCYTE CT 5.6 /CUMM (1.4-6.5); ABSOLUTE LYMPH COUNT 0.5 /CUMM (1.2-3.4); ABSOLUTE MONOCYTE COUNT 0.6 /CUMM (0.10-0.60); BASOPHIL % 0.5 % (0.0-2.0); EOSINOPHIL % 0.2 % (0-5); MEAN PLATELET VOLUME 8.9 FL (7.4-10.4); RBC DISTRIBUTION WIDTH 15.7 % (11.5-14.5); WHITE BLOOD CELL COUNT 6.8 /CUMM (4.8-10.8)
[2017-07-19 10:11] LABS: MEAN CORPUSCULAR HGB CONC 33.9 G/DL (33.0-37.0); MEAN CORPUSCULAR VOLUME 103.3 FL (80.0-94.0)
[2017-07-19 10:12] LABS: GRANULOCYTE % 82.9 % (42.2-75.2); PLATELET COUNT 118 /CUMM (130-400); RED BLOOD CELL CT 2.32 /CUMM (4.70-6.10)
[2017-07-19 14:55] VITALS: BP 140/60
[2017-07-19 21:56] VITALS: BP 1290/60
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
[2017-07-20 07:14] VITALS: BP 132/54
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
--- NOTE | 2017-07-20 11:29 | PN- Att Addend ---
Attending Addendum Attending Brief Note Patient seen and examined, he sitting in the chair. He is not requiring any OC. He is awake but not oriented. Patient still remains confused. confirms the fact that patient has dementia. Patient seen by psychiatry. Patient not agitated therefore no antipsychotics were recommended. Psychiatrist recommended regularizing patient's sleep-wake cycle with melatonin which we will start. We would also start low-dose Aricept for this dementia. Continue the rest of the management. Patient is awaiting availability of the bed at a rehabilitation. Once there is a bed available and [facility] accepts that, he can likely be discharged to rehabilitation today.
[2017-07-20] MEDS ORDERED: MELATONIN3 M4 PO (13:52)
[2017-07-20] MEDS ORDERED: ARICEPT5 M1 PO ×2 (13:52→15:24)
[2017-07-20 13:57] VITALS: BP 118/52
[2017-07-20] MEDS ORDERED: AMOXICILLIN500 M2 PO (15:23)
[2017-07-20 15:40] VITALS: BP 118/52
== END 2017-07-20 15:55 | DRG 291 ==
LOC: DELPENDDIS → ERH 18:52 → 1NO 21:54 → 2NB 21:54 → ERHI 21:54 → ENRESERV 22:46 → 1NO 23:27 → ENTRNSPT 07-10 21:25 → EDTRNSPT 07-10 21:35 → EDTRNSPTSTS 07-10 21:35 → 2NB 07-10 21:54 → CMPTRNSPT 07-10 22:05 → 2NB 07-11 08:32 → ENPENDDIS 07-17 12:05 → 2NB 07-20 15:55
PROVIDERS: Hospitalist; Internal Medicine; Physician Assistant Medical; Student in an Organized Health Care Education/Training Program
PROC: 0W993ZX Drainage of Right Pleural Cavity, Percutaneous Approach, Diagnostic (ICD-10-PCS; principal; 2017-07-05)
DX: I13.0 Hypertensive heart and chronic kidney disease with heart failure and stage 1 through stage 4 chronic kidney disease, or unspecified chronic kidney disease (principal); I50.23 Acute on chronic systolic (congestive) heart failure; N17.9 Acute kidney failure, unspecified; J90 Pleural effusion, not elsewhere classified; E87.3 Alkalosis; E83.51 Hypocalcemia; D69.6 Thrombocytopenia, unspecified; F05 Delirium due to known physiological condition; J95.811 Postprocedural pneumothorax; J93.81 Chronic pneumothorax; R13.12 Dysphagia, oropharyngeal phase; D64.9 Anemia, unspecified; F03.90 Unspecified dementia, unspecified severity, without behavioral disturbance, psychotic disturbance, mood disturbance, and anxiety; N18.9 Chronic kidney disease, unspecified; E03.9 Hypothyroidism, unspecified; Z95.810 Presence of automatic (implantable) cardiac defibrillator; Z96.0 Presence of urogenital implants; N40.0 Benign prostatic hyperplasia without lower urinary tract symptoms; B96.3 Hemophilus influenzae [H. influenzae] as the cause of diseases classified elsewhere; I25.10 Atherosclerotic heart disease of native coronary artery without angina pectoris; E78.5 Hyperlipidemia, unspecified; K22.70 Barrett's esophagus without dysplasia; I25.2 Old myocardial infarction; Z85.46 Personal history of malignant neoplasm of prostate; I48.2 Chronic atrial fibrillation; Z90.49 Acquired absence of other specified parts of digestive tract; B96.20 Unspecified Escherichia coli [E. coli] as the cause of diseases classified elsewhere
CPT/HCPCS: 1NP; 2NBSP; 87075; 36415; 36592; 71045; 71046; 74176; 74230; 81001; 82436; 87040; 87070; 87071; 87086; 88305; 93005; 93010; 93306; 97116-GO; 97161-GP; 97164-GP; 97165-GO; 97530-GO; 99232; J0290; J0696; J1644; J1940; J3490; J7042